=== PATIENT | female | born 1975 | race Two or more races ===

== ENCOUNTER 2023-07-30 16:33 | Emergency (ER) | payer MEDICAID ==
[~2023-07-30] VITALS: Ht 170.2 cm; Wt 86.5 kg
[~2023-07-30 16:33] MED LIST: NORPTMEDS CO
[2023-07-30 17:16] VITALS: BP 125/74; PULSE 109; RESP 18; O2SAT 96
[2023-07-30 18:23] LABS: Urine Bacteria FEW /hpf (None Seen); Urine Blood Negative /uL (Negative); Urine Clarity CLOUDY (Clear); Urine Color Yellow (Yellow); Urine Mucus FEW (None Seen); Urine Protein, UAD Negative (Negative); Urine Specific Gravity 1.021 (1.001-1.035); Urine Urobilinogen Normal (Negative); Urine WBC 16 /hpf (0 - 5); Urine pH 5.5 (5.0-8.0)
== END 2023-07-30 19:30 | disposition left against medical advice (07) ==
LOC: ER 16:33
DX: R10.2 Pelvic and perineal pain (principal); Z53.21 Procedure and treatment not carried out due to patient leaving prior to being seen by health care provider
CPT/HCPCS: 81001; 99281; J7030

== ENCOUNTER 2024-06-18 13:39 | Inpatient (IN) | payer MEDICAID ==
[~2024-06-18] VITALS: Ht 167.6 cm; Wt 70.0 kg
--- NOTE | 2024-06-18 14:07 | ECG ---
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
[2024-06-18 14:45] LABS: Basophils # (auto) 0 10 ^3/uL (0-0.2); Eosinophils # (auto) 0.1 10 ^3/uL (0-0.8); Mean Corpuscular Hgb Conc. 27.9 g/dL (32.0-36.0); Monocytes # (auto) 0.5 10 ^3/uL (0-1.3); Neutrophils # (auto) 7.9 10 ^3/uL (1.6-8.6); Nucleated Red Blood Cells % 0.1 %
[2024-06-18 14:48] LABS: Eosinophils % (auto) 1.2 % (0.0-7.0); Hematocrit 17.5 % (36.0-46.0); Lymphocytes # (auto) 1.2 10 ^3/uL (0.4-5.4); Lymphocytes % (auto) 12.8 % (10.0-50.0); Mean Corpuscular Hemoglobin 14.7 pg (28.0-32.0); Mean Corpuscular Volume 52.7 fL (80.0-100.0); Monocytes % (auto) 5.3 % (0.0-12.0); Neutrophils % (auto) 80.7 % (37.0-80.0); Platelet Count (auto) 592 10^3/uL (140-450); Red Blood Cells 3.32 10^6/uL (4.0-5.20); Red Cell Distribution Width 20.9 % (11.8-14.3); White Blood Cell 9.7 10^3/uL (4.4-10.8)
[2024-06-18 14:49] LABS: Hemoglobin 4.9 g/dL (12.2-16.2)
[2024-06-18 14:53] LABS: Alkaline Phosphatase 96 U/L (46-116); Calcium 8.8 mg/dL (8.7-10.4); Carbon Dioxide 23 mmol/L (20-31); Chloride 106 mmol/L (98-107)
[2024-06-18 14:54] LABS: Anion Gap 8 (5-15); Aspartate Aminotransferase 15 U/L (13-40); BUN/Creatinine Ratio 27.3 (10.0-20.0); Blood Urea Nitrogen 15 mg/dL (9-23); Potassium 4.2 mmol/L (3.5-5.1); Sodium 137 mmol/L (136-145); Total Protein 6.7 g/dL (5.7-8.2)
[2024-06-18 15:18] LABS: Alanine Aminotransferase 9 U/L (7-40); Bilirubin, Total 0.3 mg/dL (0.2-1.0); Glucose 107 mg/dL (74-106)
[2024-06-18 15:40] LABS: Anisocytosis Slight; Hypochromia Moderate; Ovalocytes FEW; Tear Drop Cells FEW
[2024-06-18 15:41] LABS: Platelet Estimate Increased
--- NOTE | 2024-06-18 15:53 | ED.PDOC ---
History of Present Illness HPI Comments 49-year-old female presents with a chief complaint of abnormal labs. Per patient, she has been feeling increasingly dizzy, SOB upon exertion, and some palpitations for the past x 3 months. Patient reports that she had blood work drawn yesterday from an order by her PCP and was called this morning stating to go to the ER due to having a HGB of 4.9, patient also has a 4.9 HGB here in the ER. Patient is pale in color. Chief Complaint: Abnormal LAB's Time Seen by MD: 14:55 Primary Care Provider: PENNY Reviewed Notes: Medications, Allergies Allergies: Coded Allergies: NO KNOWN ALLERGIES (Unverified , 03/27/13) Home Meds Reported Medications No Reported Medication (NO REPORTED MEDICATION) Ea, 0 CO UNK PATIENT HAS NO REPORTED MEDICATIONS 03/27/13 Information Source: Patient Mode of Arrival: Ambulatory Severity: Moderate Timing: Days Duration: Intermittent Prehospital treatment: None Past Medical History PAST MEDICAL HISTORY: Denies Surgical History: Denies all surgeries FAMILY SERVICE ASSISTANT History: No Pertinent FAMILY SERVICE ASSISTANT History Family History Family History: Reviewed,noncontributory to illness Social History Smoker: Non-Smoker Alcohol: Denies ETOH Use Drugs: Denies Drug Use Lives In: Home Constitutional: denies: chills, diaphoresis, fatigue, fever, malaise, sweats, weakness, others EENTM: denies: blurred vision, double vision, ear bleeding, ear discharge, ear drainage, ear pain, ear ringing, eye pain, eye redness, hearing loss, mouth pain, mouth swelling, nasal discharge, nose bleeding, nose congestion, nose pain, photophobia, tearing, throat pain, throat swelling, voice changes, others Respiratory: reports: SOB with excertion; denies: cough, hemoptysis, orthopnea, SOB at rest, shortness of breath, stridor, wheezing, others Cardiovascular: denies: chest pain, dizzy spells, diaphoresis, Dyspnea on exertion, edema, irregular heart beat, left arm pain, lightheadedness, palpitations, PND, syncope, others Gastrointestinal: denies: abdomen distended, abdominal pain, blood streaked bowels, constipated, diarrhea, dysphagia, difficulty swallowing, hematemesis, melena, nausea, poor appetite, poor fluid intake, rectal bleeding, rectal pain, vomiting, others Genitourinary: denies: abnormal vagina bleeding, burning, dyspareunia, dysuria, flank pain, frequency, hematuria, incontinence, pain, , vagina discharge, urgency, others Neurological: reports: dizziness; denies: fainting, headache, left sided numbness, left sided weakness, numbness, paresthesia, pre-existing deficit, right sided numbness, right sided weakness, seizure, speech problems, tingling, tremors, weakness, others Musculoskeletal: denies: back pain, gout, joint pain, joint swelling, muscle pain, muscle stiffness, neck pain, others Integumetry: denies: bruises, change in color, change in hair/nails, dryness, laceration, lesions, lumps, rash, wounds, others Allergic/Immunocompromised: denies: Difficulty Healing, Frequent Infections, Hives, Itching, others Hematologic/Lymphatic: reports: anemia; denies: blood clots, easy bleeding, easy bruising, swollen glands, others Endocrine: denies: excessive hunger, excessive sweating, excessive thirst, excessive urination, flushing, intolerance to cold, intolerance to heat, unexplained weight gain, unexplained weight loss, others Psychiatric: denies: anxiety, bipolar disorder, depression, hopeless, panic disorder, schizophrenia, sleepless, suicidal, others All Other Systems: Reviewed and Negative Physical Exam General Appearance: Mild Distress, Thin, Other (PALE IN COLOR) HEENT: Normal ENT Inspection, Pharynx Normal, TMs Normal Neck: Full Range of Motion, Non-Tender, Normal, Normal Inspection Respiratory: Chest Non-Tender, Lungs Clear, No Accessory Muscle Use, No Respiratory Distress, Normal Breath Sounds Cardiovascular: No Edema, No JVD, No Murmur, No Gallop, Normal Peripheral Pulses, Regular Rate/Rhythm Breast Exam: Deferred Gastrointestinal: No Organomegaly, Non Tender, No Pulsatile Mass, Normal Bowel Sounds, Soft Genitalia: Deferred Pelvic: Deferred Rectal: Deferred Extremities: No calf tenderness, Normal capillary refill, Normal inspection, Normal range of motion, Non-tender, No pedal edema Musculoskeletal : Apperance: Normal Neurologic: Alert, instructional material director II-XII nml as Tested, No Motor Deficits, Normal Affect, Normal Mood, No Sensory Deficits Cerebellar Function: Normal Reflexes: Normal Skin: Dry, Normal Color, Warm Lymphatic: No Adenopathy Was a procedure done? Was a procedure done?: No EKG EKG : Pulse Rate (adult): 112 [place]: Normal Cardiac Rhythm: ST Block: None Hypertrophy: None ST: Normal Comments Nonspecific ST changes Differential Dx Considerations may include: Gastrointestinal bleed, cancer, electrolyte abnormality, unspecified anemia, b leeding from other site X-Ray, Labs, Meds, VS Vital Signs Date Time Temp Pulse Resp B/P (MAP) Pulse Ox O2 Delivery O2 Flow Rate FiO2 06/18/24 17:15 114 13 94 Room Air* 0 21 06/18/24 17:15 114 13 116/67 (83) 94 06/18/24 15:53 112 06/18/24 13:56 124 06/18/24 13:53 112 06/18/24 13:50 98.2 124 18 125/53 (77) 100 Lab Test 06/18/24 14:12 Range/Units White Blood Count 9.7 4.4-10.8 10^3/uL Red Blood Count 3.32 L 4.0-5.20 10^6/uL Hemoglobin 4.9 *L 12.2-16.2 g/dL Hematocrit 17.5 L 36.0-46.0 % Mean Corpuscular Volume 52.7 L 80.0-100.0 fL Mean Corpuscular Hemoglobin 14.7 L 28.0-32.0 pg Mean Corpuscular Hemoglobin Concent 27.9 L 32.0-36.0 g/dL Red Cell Distribution Width 20.9 H 11.8-14.3 % Platelet Count 592 H 140-450 10^3/uL Mean Platelet Volume 8.3 6.9-10.8 fL Neutrophils (%) (Auto) 80.7 H 37.0-80.0 % Lymphocytes (%) (Auto) 12.8 10.0-50.0 % Monocytes (%) (Auto) 5.3 0.0-12.0 % Eosinophils (%) (Auto) 1.2 0.0-7.0 % Basophils (%) (Auto) 0.0 0.0-2.0 % Neutrophils # (Auto) 7.9 1.6-8.6 10 ^3/uL Lymphocytes # (Auto) 1.2 0.4-5.4 10 ^3/uL Monocytes # (Auto) 0.5 0-1.3 10 ^3/uL Eosinophils # (Auto) 0.1 0-0.8 10 ^3/uL Basophils # (Auto) 0 0-0.2 10 ^3/uL Nucleated Red Blood Cells 0.1 % Platelet Estimate Increased Hypochromasia (manual) Moderate Anisocytosis (manual) Slight Microcytosis Moderate Tear Drop Cells Few Ovalocytes Few Schistocytes Few Sodium Level 137 136-145 mmol/L Potassium Level 4.2 3.5-5.1 mmol/L Chloride Level 106 98-107 mmol/L Carbon Dioxide Level 23 20-31 mmol/L Anion Gap 8 5-15 Blood Urea Nitrogen 15 9-23 mg/dL Creatinine 0.55 0.550-1.02 mg/dL Glomerular Filtration Rate Calc 111 >90 mL/min BUN/Creatinine Ratio 27.3 H 10.0-20.0 Serum Glucose 107 H 74-106 mg/dL Calcium Level 8.8 8.7-10.4 mg/dL Total Bilirubin 0.3 0.2-1.0 mg/dL Aspartate Amino Transferase (AST) 15 13-40 U/L Alanine Aminotransferase (ALT) 9 7-40 U/L Alkaline Phosphatase 96 46-116 U/L Total Protein 6.7 5.7-8.2 g/dL Albumin 4.0 3.2-4.8 g/dL 49-year-old female presents here with hemoglobin of 4.9. She does state that she has had onto unintentional weight loss of proximally 40 lb in the last 6 months. I am very concerned about possible carcinoma. Blood work has been done which does demonstrate hemoglobin of 4.9 and also increased platelets of 592. At this time patient has been transfused 1 unit of PRBC. Patient has been admitted to the hospitalist team. Time of 1ST Reevaluation: 15:25 Reevaluation 1ST: Unchanged Patient Education/Counseling: Diagnosis, Treatment, Prognosis Family Education/Counseling: Diagnosis, Treatment, Prognosis Departure 1 Departure Time of Disposition: 16:00 Impression: Primary Impression: Severe anemia Additional Impressions: Thrombocytosis Unintentional weight loss Disposition: ADMITTED INPATIENT Admit to: [facility] Condition: Critical Critical Care Note Critical Care Time?: Yes (45 min-critical care time only) Critical care comment: Patient was found to be pale and nursing staff called me immediately to bedside for possible immediate deterioration of the patient. Patient was immediately evaluated by myself. Time was spent evaluating the patient, ordering labs, reviewing labs, transfusing the patient, discussing care with other team members., speaking to family regarding results. Stability Stability form required: No Heart Score Heart Score: Heart Score Response (Comments) Value History N/A 0 EKG N/A 0 Age N/A 0 Risk Factors N/A 0 Troponin N/A 0 Total 0 I personally scribed for CONNOR MARTINEZ MD ([email or web address]) on 06/18/24 at 15:53. Electronically submitted by Emery Roberson ([email or web address]). CONNOR MARTINEZ MD Jun 18, 2024 15:53
[2024-06-18 17:15] VITALS: PULSE 114; RESP 13; O2SAT 94
[2024-06-18] MEDS ORDERED: ONDANSETRON HCL 4 MG/2 ML VIAL IV PRN (19:00)
[2024-06-18] MEDS ORDERED: HYDROcodone-ACET 5/325MG TAB PO PRN (19:00)
[2024-06-18] MEDS ORDERED: ACETAMINOPHEN 325 MG TAB PO PRN (19:00)
[2024-06-18] MEDS: PANTOPRAZOLE 40 MG/10 ML VIAL INJ IV ONE (19:24)
[2024-06-18] MEDS: SODIUM CHLORIDE 0.9% 1,000 ML IV SCH (19:24)
[2024-06-18 19:53] VITALS: BP 110/61; PULSE 113; RESP 12; TEMP 99.5
[2024-06-18 20:00] VITALS: PULSE 113; RESP 12; O2SAT 98
[2024-06-18 20:15] VITALS: BP 109/57; PULSE 111; RESP 19; TEMP 99.5
[2024-06-18] MEDS ORDERED: IOHEXOL 300 MG/ML 100ML BOTTLE IJ ONE (20:55)
--- NOTE | 2024-06-18 21:55 | DVHHP2 ---
History of Present Illness Reason for Visit: Severe anemia History of Present Illness The patient is a 49-year-old female who denies past medical history presented to [facility] ED for evaluation of abnormal labs. Patient reports feeling weakness, increasing dizziness, associated shortness of breath, getting worse today that prompted this visit. Patient was seen and evaluated in the ED, laboratory data shows WBC 9.7, hemoglobin 4.9, hematocrit 17.5, platelets 592, sodium 137, potassium 4.2, BUN 15, creatinine 0.55, GFR 111, glucose 107. Patient will receive 2 units of PRBC, please see medication orders section in the computer. On my assessment, patient denied chest pain, no headache, no diz ziness at this moment, no diaphoresis, no nausea, no vomiting, no fever, no chills. Patient was admitted for further evaluation and medical management. Past Medical History Denies past medical history Past Surgical History Denies all surgeries Family History Reviewed, noncontributory to the management of this case. Past Social History The patient lives at home, denies smoking, alcohol or illicit drugs abuse. Review of Systems Constitutional: Yes: Weakness; No: Fever, Chills, Sweats, Malaise, Other Eyes: No: Pain, Vision change, Conjunctivae inflammation, Eyelid inflammation, Other, Redness ENT: No: Ear pain, Ear discharge, Nose pain, Nose discharge, Nose congestion, Mouth pain, Mouth swelling, Throat pain, Throat swelling, Other Respiratory: Shortness of breath; No: Cough, Dry, SOB with excertion, Wheezing, Hemoptysis, Pleuritic Pain, Sputum, Wheezing, Other Cardiovascular: No: Chest Pain, Palpitations, Orthopnea, Paroxysmal Noc. Dyspnea, Edema, Lt Headedness, Other Gastrointestinal: No: Nausea, Vomiting, Abdominal Pain, Diarrhea, Constipation, Melena, Hematochezia, Other Genitourinary: No Dysuria, No Frequency, No Incontinence, No Hematuria, No Retention, No Other Musculoskeletal: No: other, neck pain, shoulder pain, arm pain, back pain, hand pain, leg pain, foot pain Skin: No: Rash, Lesions, Jaundice, Bruising, Other Neurological: No: Weakness, Numbness, Incoordination, Change in speech, Confusion, Seizures, Other Allergies: Coded Allergies: NO KNOWN ALLERGIES (Unverified , 11/2/13) Medications Current Medications Medications Dose Ordered Sig/Chris Route Start Time Stop Time Status Last Admin Dose Admin Pantoprazole Sodium 40 mg DAILY IV 06/19/24 10:00 Sodium Chloride 1,000 ml @ 60 mls/hr [id number] IV 06/18/24 19:00 06/18/24 19:24 60 MLS/HR Acetaminophen/ Hydrocodone Bitart 1 tab Q4HP PRN PO 06/18/24 19:00 Ondansetron HCl 4 mg Q4HP PRN IV 06/18/24 19:00 Docusate Sodium 100 mg BIDPRN PRN PO 06/18/24 19:00 Enoxaparin Sodium 40 mg DAILY SC 06/19/24 10:00 Acetaminophen 650 mg Q6HP PRN PO 06/18/24 19:00 Exam Vital Signs Vital Signs Date Time Temp Pulse Resp B/P (MAP) Pulse Ox O2 Delivery O2 Flow Rate FiO2 06/18/24 20:15 99.5 111 19 109/57 99.5 06/18/24 18:00 97 06/18/24 17:15 Room Air* 0 21 General Appearance: Alert, Oriented X3, Cooperative, No acute distress HEENT: Atraumatic, PERRLA, EOMI, Mucous membr. moist/pink Respiratory: Clear to auscultation, Normal air movement Cardiovascular: Regular rate, Normal S1, Normal S2, No murmurs Abdominal: Normal bowel sounds, Soft, No tenderness, No hepatospenomegaly, No masses Extremities: No clubbing, No cyanosis, No edema, Normal pulses, No tenderness/swelling Skin: No rashes, No breakdown, No significant lesion Neuro: Normal speech, Normal tone, Sensation intact, Cranial nerves 3-12 NL, Reflexes 2+, Other (Generalized weakness) Psych/Mental Status: Mental status NL, Mood NL Labs/Xrays Labs Test 06/18/24 19:02 06/18/24 14:12 Range/Units Urine Test Negative Negative White Blood Count 9.7 4.4-10.8 10^3/uL Red Blood Count 3.32 L 4.0-5.20 10^6/uL Hemoglobin 4.9 *L 12.2-16.2 g/dL Hematocrit 17.5 L 36.0-46.0 % Mean Corpuscular Volume 52.7 L 80.0-100.0 fL Mean Corpuscular Hemoglobin 14.7 L 28.0-32.0 pg Mean Corpuscular Hemoglobin Concent 27.9 L 32.0-36.0 g/dL Red Cell Distribution Width 20.9 H 11.8-14.3 % Platelet Count 592 H 140-450 10^3/uL Mean Platelet Volume 8.3 6.9-10.8 fL Neutrophils (%) (Auto) 80.7 H 37.0-80.0 % Lymphocytes (%) (Auto) 12.8 10.0-50.0 % Monocytes (%) (Auto) 5.3 0.0-12.0 % Eosinophils (%) (Auto) 1.2 0.0-7.0 % Basophils (%) (Auto) 0.0 0.0-2.0 % Neutrophils # (Auto) 7.9 1.6-8.6 10 ^3/uL Lymphocytes # (Auto) 1.2 0.4-5.4 10 ^3/uL Monocytes # (Auto) 0.5 0-1.3 10 ^3/uL Eosinophils # (Auto) 0.1 0-0.8 10 ^3/uL Basophils # (Auto) 0 0-0.2 10 ^3/uL Nucleated Red Blood Cells 0.1 % Platelet Estimate Increased Hypochromasia (manual) Moderate Anisocytosis (manual) Slight Microcytosis Moderate Tear Drop Cells Few Ovalocytes Few Schistocytes Few Sodium Level 137 136-145 mmol/L Potassium Level 4.2 3.5-5.1 mmol/L Chloride Level 106 98-107 mmol/L Carbon Dioxide Level 23 20-31 mmol/L Anion Gap 8 5-15 Blood Urea Nitrogen 15 9-23 mg/dL Creatinine 0.55 0.550-1.02 mg/dL Glomerular Filtration Rate Calc 111 >90 mL/min BUN/Creatinine Ratio 27.3 H 10.0-20.0 Serum Glucose 107 H 74-106 mg/dL Calcium Level 8.8 8.7-10.4 mg/dL Total Bilirubin 0.3 0.2-1.0 mg/dL Aspartate Amino Transferase (AST) 15 13-40 U/L Alanine Aminotransferase (ALT) 9 7-40 U/L Alkaline Phosphatase 96 46-116 U/L Total Protein 6.7 5.7-8.2 g/dL Albumin 4.0 3.2-4.8 g/dL Assessment/Plan Assessment/Plan Severe anemia Thrombocytosis Unintentional weight loss Generalized weakness Plan 1. Admit to telemetry unit 2. Breathing treatment 3. Pain control management 4. Management of fluids and electrolytes 5. Consultation for hospitalist 6. Diagnostic tests chest x-ray 7. DVT prophylaxis-on SCDs 8. Repeat labs CBC, CMP in a.m. 9. Continue with current medical management 10. Treatment plan discussed with patient and RN. Patient verbalized understanding. Plan discussed with: Patient, Other (RN) My Orders Orders - COOPER TOMPKINS DNP Procedure Category Date Status Time Pantoprazole PHA 06/19/24 In Process (Protonix) 10:00 Allergies BIJAN 06/18/24 In Process 18:54 Code Status CODE 06/18/24 Transmitted 18:54 Sodium Chloride 0.9% PHA 06/18/24 In Process 19:00 Oxygen Per Hour RT 06/18/24 Transmitted 18:54 Hydrocodone-Acet PHA 06/18/24 In Process 5/325mg Tab ([place] 19:00 Ondansetron Hcl PHA 06/18/24 In Process (Zofran) 19:00 Docusate Sodium PHA 06/18/24 In Process Capsule (Colace 19:00 Enoxaparin Sodium PHA 06/19/24 In Process (Lovenox) 10:00 Complete Blood Count LAB 06/19/24 Verified 04:00 Comprehensive LAB 06/19/24 Verified Metabolic Panel 04:00 Cardiac DIET 06/19/24 Transmitted Diet-2gna,Lofat,Lochol Breakfast Condition: Serious BIJAN 06/18/24 In Process 18:54 Acetaminophen Tablet PHA 06/18/24 In Process (Tylenol Tablet) 19:00 Bedrest With Bathroom BIJAN 06/18/24 In Process Privileg 18:54 Sequential BIJAN 06/18/24 In Process Compression Device Complete Blood Count LAB 06/20/24 Verified 05:00 Packedcells -Active BBK 06/18/24 Logged Bleeding 21:25 Problem List: (1) Severe anemia (2) Thrombocytosis (3) Unintentional weight loss (4) Generalized weakness Date of Service: Jun 18, 2024 Billing Provider: COOPER TOMPKINS DNP Common Visit Codes: [id number] INP/OBS CARE (HIGH) COOPER TOMPKINS DNP Jun 18, 2024 21:55
[2024-06-18] MEDS ORDERED: NITROGLYCERIN 0.4 MG SL TAB SL PRN (22:00)
[2024-06-18] MEDS ORDERED: MORPHINE SULFATE INJ 2 MG/ml SYRG IV PRN (22:00)
[2024-06-19] VITALS (12 sets, daily range): BP systolic 106–121; BP diastolic 61–81; PULSE 94–102; RESP 14–20; TEMP 98–99.7; O2SAT 94–99
[2024-06-19] MEDS ORDERED: PANT40TA57 PO (00:32)
[2024-06-19] MEDS ORDERED: CETI-120 PO (00:32)
[2024-06-19] MEDS ORDERED: BACL20TA PO (00:32)
--- NOTE | 2024-06-19 00:36 | DVH ---
Exam: CT CT CHEST/AB/PL W CON- IV ONLY History: ro carcinoma Comparison Study: None available at time of dictation. Technique: Multidetector spiral CT of the abdomen and pelvis was performed from lung bases to pubic s ymphysis. Intravenous contrast was administered during this examination. Portal venous imaging was obtained. Axial, coronal and sagittal multiplanar reformats were performed by the technologist on a separate workstation. Radiation Dose : 1. Abdomen/Pelvis: CTDIvol 8 mGy, DLP 620 mGy*cm. Findings: Lung Bases: No acute or significant lung base finding. Normal heart size. No pleural or pericardial effusion. Liver: The liver is normal in size. No focal lesions. Normal hepatic vascular enhancement. Gallbladder and Biliary Tree: Nondistended gallbladder demonstrating subcentimeter lesions. Spleen: Unremarkable Pancreas: The pancreas is normal in appearance without focal lesions or abnormal enhancement. Adrenal Glands: Unremarkable Kidneys: Kidneys demonstrate normal symmetric enhancement without focal lesions, calculi or hydroneph rosis. Bladder: Unremarkable Bowel: The stomach is grossly normal in appearance. Irregular wall thickening of the transverse colon with adjacent inflammatory changes. Postsurgical changes of the small bowel in the right lower abdom en. Normal appendix is visualized in the right lower quadrant without findings of appendicitis. Ascites: Absent Lymphadenopathy: No mesenteric, retroperitoneal or periportal lymphadenopathy. Abdominal Wall and Mesentery: Unremarkable. Vasculature: The visualized abdominal aorta is normal in size and caliber. Abdominal and pelvic vess els demonstrate normal enhancement. Pelvic Organs: Cystic lesion in the left adnexa. Musculoskeletal: No aggressive focal bony lesions, acute fractures or dislocation. Postsurgical browne es of the lower thoracic and lumbar spine. IMPRESSION: Irregular wall thickening of the transverse colon with adjacent inflammatory changes concerning for a cute infectious/ inflammatory colitis with underlying malignancy not excluded. Nondistended gallbladder demonstrating subcentimeter internal lesion which may represent a stone othe r etiologies not excluded. Consider further evaluation with ultrasound. Hypodense lesion in the left adnexa which can be further evaluated ultrasound clinically indicated.
[2024-06-19 06:06] LABS: Basophils # (auto) 0 10 ^3/uL (0-0.2); Basophils % (auto) 0.2 % (0.0-2.0); Eosinophils # (auto) 0.2 10 ^3/uL (0-0.8); Eosinophils % (auto) 2.7 % (0.0-7.0); Hematocrit 22.4 % (36.0-46.0); Lymphocytes # (auto) 1.2 10 ^3/uL (0.4-5.4); Lymphocytes % (auto) 15.2 % (10.0-50.0); Mean Corpuscular Hemoglobin 18.9 pg (28.0-32.0); Mean Corpuscular Hgb Conc. 31.1 g/dL (32.0-36.0); Mean Corpuscular Volume 60.6 fL (80.0-100.0); Monocytes # (auto) 0.6 10 ^3/uL (0-1.3); Monocytes % (auto) 8.3 % (0.0-12.0); Neutrophils # (auto) 5.7 10 ^3/uL (1.6-8.6); Neutrophils % (auto) 73.6 % (37.0-80.0); Nucleated Red Blood Cells % 0.1 %; Platelet Count (auto) 430 10^3/uL (140-450); Red Blood Cells 3.69 10^6/uL (4.0-5.20); Red Cell Distribution Width 31.3 % (11.8-14.3); White Blood Cell 7.7 10^3/uL (4.4-10.8)
[2024-06-19 06:23] LABS: Albumin 3.4 g/dL (3.2-4.8); Alkaline Phosphatase 80 U/L (46-116); Anion Gap 9 (5-15); BUN/Creatinine Ratio 23.1 (10.0-20.0); Bilirubin, Total 0.4 mg/dL (0.2-1.0); Carbon Dioxide 21 mmol/L (20-31); Glucose 104 mg/dL (74-106); Potassium 3.6 mmol/L (3.5-5.1); Sodium 139 mmol/L (136-145); Total Protein 5.8 g/dL (5.7-8.2)
[2024-06-19 06:24] LABS: Blood Urea Nitrogen 9 mg/dL (9-23); Chloride 109 mmol/L (98-107)
[2024-06-19 06:25] LABS: Alanine Aminotransferase < 9 U/L (7-40); Aspartate Aminotransferase 11 U/L (13-40); Calcium 8.3 mg/dL (8.7-10.4)
[2024-06-19 07:26] LABS: Hypochromia Moderate
[2024-06-19 07:27] LABS: Anisocytosis Moderate; Ovalocytes FEW; Platelet Estimate Adequate
[2024-06-19] MEDS: PANTOPRAZOLE 40 MG/10 ML VIAL INJ IV SCH (11:09)
[2024-06-19] MEDS: ENOXAPARIN SOD 40 MG/0.4 ML SYRINGE SC SCH (11:10)
--- NOTE | 2024-06-19 22:35 | DVHPN2 ---
Subjective The patient is seen and examined at bedside. No complaint today. Reviewed: Care Plan, H&P, Labs, Medications, Previous Orders, Radiology Changes from previous H/P or p: No Changes Eyes: No Pain, No Vision change, No Conjunctivae inflammation, No Eyelid inflammation, No Other, No Redness ENT: No Ear pain, No Ear discharge, No Nose pain, No Nose discharge, No Nose congestion, No Mouth pain, No Mouth swelling, No Throat pain, No Throat swelling, No Other Cardiovascular: No Chest Pain, No Palpitations, No Orthopnea, No Paroxysmal Noc. Dyspnea, No Edema, No Lt Headedness, No Other Respiratory: No Cough, No Dry; Shortness of breath; No SOB with excertion, No Wheezing, No Hemoptysis, No Pleuritic Pain, No Sputum, No Other Gastrointestinal: No Nausea, No Vomiting, No Abdominal Pain, No Diarrhea, No Constipation, No Melena, No Hematochezia, No Other Genitourinary: No Dysuria, No Frequency, No Incontinence, No Hematuria, No Retention, No Other Musculoskeletal: No other, No neck pain, No shoulder pain, No arm pain, No back pain, No hand pain, No leg pain, No foot pain Skin: No Rash, No Lesions, No Jaundice, No Bruising, No Other Objective Vitals Vital Signs Date Time Temp Pulse Resp B/P (MAP) Pulse Ox O2 Delivery O2 Flow Rate FiO2 06/19/24 21:00 99.3 100 18 121/81 (94) 98 99.3 06/19/24 20:00 Room Air* 0 21 Intake/Output Intake and Output 06/19/24 07:00 Intake Total 600 ml Output Total 350 ml Balance 250 ml Intake Oral 0 ml Blood Product 600 ml Output Urine Total 350 ml General Appearance: Alert, Oriented X3, Cooperative, No acute distress HEENT: Atraumatic, PERRLA, EOMI, Mucous membr. moist/pink Neck: Supple Lungs: Clear to auscultation, Normal air movement Cardiovascular: Regular rate, Normal S1, Normal S2, No murmurs, Gallops, Rubs Abdomen: Normal bowel sounds, Soft, No tenderness Neuro: Cranial nerves 3-12 NL Psych/Mental Status: Mental status NL Medications Current Medications Medications Dose Ordered Sig/Chris Route Start Time Stop Time Status Last Admin Dose Admin Pantoprazole Sodium 40 mg DAILY IV 06/19/24 10:00 06/19/24 11:09 40 MG Sodium Chloride 1,000 ml @ 60 mls/hr [id number] IV 06/18/24 19:00 06/19/24 17:13 60 MLS/HR Acetaminophen/ Hydrocodone Bitart 1 tab Q4HP PRN PO 06/18/24 19:00 Ondansetron HCl 4 mg Q4HP PRN IV 06/18/24 19:00 Docusate Sodium 100 mg BIDPRN PRN PO 06/18/24 19:00 Enoxaparin Sodium 40 mg DAILY SC 06/19/24 10:00 06/19/24 11:10 40 MG Acetaminophen 650 mg Q6HP PRN PO 06/18/24 19:00 Nitroglycerin 0.4 mg Q5MINP PRN SL 06/18/24 22:00 Morphine Sulfate 2 mg Q30M PRN IV 06/18/24 22:00 Laboratory Results Laboratory Tests 06/19/24 05:29 Chemistry Test 06/19/24 05:29 Albumin 3.4 g/dL (3.2-4.8) Calcium Level 8.3 mg/dL (8.7-10.4) L Total Protein 5.8 g/dL (5.7-8.2) LFT Test 06/19/24 05:29 Alanine Aminotransferase (ALT) < 9 U/L (7-40) Alkaline Phosphatase 80 U/L (46-116) Aspartate Amino Transferase (AST) 11 U/L (13-40) L Total Bilirubin 0.4 mg/dL (0.2-1.0) Urinalysis Test 06/18/24 19:02 Urine Test Negative (Negative) Labs and/or images reviewed: Labs reviewed by me Assessment/Plan Assessment/Plan Severe anemia Thrombocytosis Unintentional weight loss Generalized weakness Continuing current management. We will transfuse one packed red blood cell today. We will monitor anemia in thrombocytosis. Plan discussed with: Patient Date of Service: Jun 19, 2024 Billing Provider: ISIS KELLEY MD Common Visit Codes: [id number] INP/OBS CARE(HIGH) ISIS KELLEY MD Jun 19, 2024 22:35
[2024-06-20] VITALS (12 sets, daily range): BP systolic 105–123; BP diastolic 49–76; PULSE 92–116; RESP 16–20; TEMP 98.1–99.4; O2SAT 94–98
[2024-06-20 06:50] LABS: Basophils # (auto) 0 10 ^3/uL (0-0.2); Eosinophils # (auto) 0.2 10 ^3/uL (0-0.8); Eosinophils % (auto) 2.6 % (0.0-7.0); Lymphocytes # (auto) 1.2 10 ^3/uL (0.4-5.4); Lymphocytes % (auto) 14.5 % (10.0-50.0); Monocytes # (auto) 0.6 10 ^3/uL (0-1.3); Nucleated Red Blood Cells % 0.1 %
[2024-06-20 06:53] LABS: Basophils % (auto) 0.4 % (0.0-2.0); Hematocrit 22.1 % (36.0-46.0); Mean Corpuscular Hemoglobin 18.6 pg (28.0-32.0); Mean Corpuscular Hgb Conc. 30.6 g/dL (32.0-36.0); Mean Corpuscular Volume 60.9 fL (80.0-100.0); Monocytes % (auto) 7.7 % (0.0-12.0); Neutrophils % (auto) 74.8 % (37.0-80.0); Platelet Count (auto) 440 10^3/uL (140-450); Red Blood Cells 3.63 10^6/uL (4.0-5.20)
[2024-06-20 07:10] LABS: Hemoglobin 6.8 g/dL (12.2-16.2); Red Cell Distribution Width 31.1 % (11.8-14.3)
[2024-06-20 07:36] LABS: Anisocytosis Moderate
[2024-06-20 07:37] LABS: Hypochromia Moderate; Ovalocytes FEW; Platelet Estimate Adequate
--- NOTE | 2024-06-20 18:00 | DVHPN2 ---
Subjective The patient seen and examined at bedside. Feel dizzy today. Complain of blood in stool. Reviewed: Care Plan, H&P, Labs, Medications, Previous Orders, Radiology Changes from previous H/P or p: No Changes Eyes: No Pain, No Vision change, No Conjunctivae inflammation, No Eyelid inflammation, No Other, No Redness ENT: No Ear pain, No Ear discharge, No Nose pain, No Nose discharge, No Nose congestion, No Mouth pain, No Mouth swelling, No Throat pain, No Throat swelling, No Other Cardiovascular: No Chest Pain, No Palpitations, No Orthopnea, No Paroxysmal Noc. Dyspnea, No Edema, No Lt Headedness, No Other Respiratory: No Cough, No Dry; Shortness of breath; No SOB with excertion, No Wheezing, No Hemoptysis, No Pleuritic Pain, No Sputum, No Other Gastrointestinal: No Nausea, No Vomiting, No Abdominal Pain, No Diarrhea, No Constipation, No Melena, No Hematochezia, No Other Genitourinary: No Dysuria, No Frequency, No Incontinence, No Hematuria, No Retention, No Other Musculoskeletal: No other, No neck pain, No shoulder pain, No arm pain, No back pain, No hand pain, No leg pain, No foot pain Skin: No Rash, No Lesions, No Jaundice, No Bruising, No Other Objective Vitals Vital Signs Date Time Temp Pulse Resp B/P (MAP) Pulse Ox O2 Delivery O2 Flow Rate FiO2 06/20/24 13:00 98.9 97 20 105/49 (67) 97 98.9 06/20/24 08:00 Room Air* 0 21 Intake/Output Intake and Output 06/20/24 07:00 Intake Total 2300 ml Output Total 2100 ml Balance 200 ml Intake Oral 940 ml IV Total 1060 ml Blood Product 300 ml Output Urine Total 2100 ml General Appearance: Alert, Oriented X3, Cooperative, No acute distress HEENT: Atraumatic, PERRLA, EOMI, Mucous membr. moist/pink Neck: Supple Lungs: Clear to auscultation, Normal air movement Cardiovascular: Regular rate, Normal S1, Normal S2, No murmurs, Gallops, Rubs Abdomen: Normal bowel sounds, Soft, No tenderness Neuro: Cranial nerves 3-12 NL Psych/Mental Status: Mental status NL Medications Current Medications Medications Dose Ordered Sig/Chris Route Start Time Stop Time Status Last Admin Dose Admin Pantoprazole Sodium 40 mg DAILY IV 06/19/24 10:00 06/19/24 11:09 40 MG Sodium Chloride 1,000 ml @ 60 mls/hr [id number] IV 06/18/24 19:00 06/20/24 12:33 60 MLS/HR Acetaminophen/ Hydrocodone Bitart 1 tab Q4HP PRN PO 06/18/24 19:00 Ondansetron HCl 4 mg Q4HP PRN IV 06/18/24 19:00 Docusate Sodium 100 mg BIDPRN PRN PO 06/18/24 19:00 Enoxaparin Sodium 40 mg DAILY SC 06/19/24 10:00 06/19/24 11:10 40 MG Acetaminophen 650 mg Q6HP PRN PO 06/18/24 19:00 Nitroglycerin 0.4 mg Q5MINP PRN SL 06/18/24 22:00 Morphine Sulfate 2 mg Q30M PRN IV 06/18/24 22:00 Laboratory Results Laboratory Tests 06/19/24 05:29 06/20/24 05:22 Urinalysis Test 06/18/24 19:02 Urine Test Negative (Negative) Labs and/or images reviewed: Labs reviewed by me Assessment/Plan Assessment/Plan Severe anemia Thrombocytosis Unintentional weight loss Generalized weakness Continuing current management. We will type and cross and transfuse one packed red blood cell. GI specialist consulted. Landscape Supervisor consulted. Plan discussed with: Patient My Orders Orders - ISIS KELLEY MD Procedure Category Date Status Time * Gi Dvh Chain Builder Loom Control CONS 06/20/24 Transmitted 13:40 Date of Service: Jun 20, 2024 Billing Provider: ISIS KELLEY MD Common Visit Codes: [id number] INP/OBS CARE(HIGH) ISIS KELLEY MD Jun 20, 2024 18:00
[2024-06-21] VITALS (9 sets, daily range): BP systolic 102–120; BP diastolic 58–74; PULSE 83–109; RESP 17–19; TEMP 98.5–99.1; O2SAT 95–97
[2024-06-21] MEDS: DOCUSATE SOD 100 MG CAP PO PRN (08:57)
[2024-06-21 09:56] LABS: Basophils # (auto) 0 10 ^3/uL (0-0.2); Basophils % (auto) 0.3 % (0.0-2.0); Eosinophils # (auto) 0.2 10 ^3/uL (0-0.8); Lymphocytes # (auto) 0.8 10 ^3/uL (0.4-5.4); Mean Corpuscular Volume 63.9 fL (80.0-100.0); Monocytes # (auto) 0.4 10 ^3/uL (0-1.3)
[2024-06-21 09:59] LABS: Eosinophils % (auto) 2.5 % (0.0-7.0); Hematocrit 27.8 % (36.0-46.0); Hemoglobin 8.4 g/dL (12.2-16.2); Lymphocytes % (auto) 11.1 % (10.0-50.0); Mean Corpuscular Hemoglobin 19.4 pg (28.0-32.0); Mean Corpuscular Hgb Conc. 30.3 g/dL (32.0-36.0); Monocytes % (auto) 5.6 % (0.0-12.0); Neutrophils % (auto) 80.5 % (37.0-80.0); Nucleated Red Blood Cells % 0.1 %; Platelet Count (auto) 458 10^3/uL (140-450); Red Blood Cells 4.35 10^6/uL (4.0-5.20); Red Cell Distribution Width 32.9 % (11.8-14.3); White Blood Cell 7.5 10^3/uL (4.4-10.8)
[2024-06-21 10:16] LABS: Anion Gap 8 (5-15); Carbon Dioxide 23 mmol/L (20-31); Potassium 3.9 mmol/L (3.5-5.1); Sodium 140 mmol/L (136-145)
[2024-06-21 10:17] LABS: Calcium 8.9 mg/dL (8.7-10.4)
[2024-06-21 10:23] LABS: Blood Urea Nitrogen 8 mg/dL (9-23); Chloride 109 mmol/L (98-107); Glucose 164 mg/dL (74-106)
--- NOTE | 2024-06-21 11:34 | DVHPN2 ---
Subjective The patient seen and examined at bedside. Feel dizzy today. Reviewed: Care Plan, H&P, Labs, Medications, Previous Orders, Radiology Changes from previous H/P or p: No Changes Eyes: No Pain, No Vision change, No Conjunctivae inflammation, No Eyelid inflammation, No Other, No Redness ENT: No Ear pain, No Ear discharge, No Nose pain, No Nose discharge, No Nose congestion, No Mouth pain, No Mouth swelling, No Throat pain, No Throat swelling, No Other Cardiovascular: No Chest Pain, No Palpitations, No Orthopnea, No Paroxysmal Noc. Dyspnea, No Edema, No Lt Headedness, No Other Respiratory: No Cough, No Dry; Shortness of breath; No SOB with excertion, No Wheezing, No Hemoptysis, No Pleuritic Pain, No Sputum, No Other Gastrointestinal: No Nausea, No Vomiting, No Abdominal Pain, No Diarrhea, No Constipation, No Melena, No Hematochezia, No Other Genitourinary: No Dysuria, No Frequency, No Incontinence, No Hematuria, No Retention, No Other Musculoskeletal: No other, No neck pain, No shoulder pain, No arm pain, No back pain, No hand pain, No leg pain, No foot pain Skin: No Rash, No Lesions, No Jaundice, No Bruising, No Other Objective Vitals Vital Signs Date Time Temp Pulse Resp B/P (MAP) Pulse Ox O2 Delivery O2 Flow Rate FiO2 06/21/24 08:55 98.5 94 18 117/70 (86) 95 98.5 06/20/24 20:00 Room Air* 0 21 Intake/Output Intake and Output 06/21/24 07:00 Intake Total 2170 ml Output Total 2275 ml Balance -105 ml IV Total 1870 ml Blood Product 300 ml Output Urine Total 2275 ml # Bowel Movements 1 General Appearance: Alert, Oriented X3, Cooperative, No acute distress HEENT: Atraumatic, PERRLA, EOMI, Mucous membr. moist/pink Neck: Supple Lungs: Clear to auscultation, Normal air movement Cardiovascular: Regular rate, Normal S1, Normal S2, No murmurs, Gallops, Rubs Abdomen: Normal bowel sounds, Soft, No tenderness Neuro: Cranial nerves 3-12 NL Psych/Mental Status: Mental status NL Medications Current Medications Medications Dose Ordered Sig/Chris Route Start Time Stop Time Status Last Admin Dose Admin Pantoprazole Sodium 40 mg DAILY IV 1/25/25 10:00 06/21/24 08:57 40 MG Sodium Chloride 1,000 ml @ 60 mls/hr [id number] IV 06/18/24 19:00 06/21/24 05:53 60 MLS/HR Acetaminophen/ Hydrocodone Bitart 1 tab Q4HP PRN PO 06/18/24 19:00 Ondansetron HCl 4 mg Q4HP PRN IV 06/18/24 19:00 Docusate Sodium 100 mg BIDPRN PRN PO 06/18/24 19:00 06/21/24 08:57 100 MG Enoxaparin Sodium 40 mg DAILY SC 06/19/24 10:00 06/19/24 11:10 40 MG Acetaminophen 650 mg Q6HP PRN PO 06/18/24 19:00 Nitroglycerin 0.4 mg Q5MINP PRN SL 06/18/24 22:00 Morphine Sulfate 2 mg Q30M PRN IV 06/18/24 22:00 Laboratory Results Laboratory Tests 06/21/24 09:40 Chemistry Test 06/21/24 09:40 Calcium Level 8.9 mg/dL (8.7-10.4) Urinalysis Test 06/18/24 19:02 Urine Test Negative (Negative) Labs and/or images reviewed: Labs reviewed by me Assessment/Plan Assessment/Plan Severe anemia Thrombocytosis Unintentional weight loss Generalized weakness Continuing current management. Hemoglobin is stable Still waiting for GI specialist consulted. Life Advisor consulted as outpatient Discharge planning if GI cleared the patient Plan discussed with: Patient My Orders Orders - ISIS KELLEY MD Procedure Category Date Status Time * Gi Dvh Wood Cabinetmaker CONS 06/20/24 Transmitted 13:40 * Hematology/Oncology CONS 06/21/24 Transmitted Consult 07:08 Date of Service: Jun 21, 2024 Billing Provider: ISIS KELLEY MD Common Visit Codes: [id number] INP/OBS CARE(HIGH) ISIS KELLEY MD Jun 21, 2024 11:34
[2024-06-22 01:07] VITALS: BP 155/67; PULSE 89; RESP 16; TEMP 98.6; O2SAT 90
[2024-06-22 05:00] VITALS: BP 115/66; PULSE 91; RESP 18; TEMP 98.5; O2SAT 97
[2024-06-22 08:00] VITALS: PULSE 92
[2024-06-22 09:00] VITALS: BP 127/72; PULSE 97; RESP 19; TEMP 98.8; O2SAT 98
[2024-06-22 11:02] LABS: Basophils # (auto) 0 10 ^3/uL (0-0.2); Basophils % (auto) 0.1 % (0.0-2.0); Eosinophils # (auto) 0.2 10 ^3/uL (0-0.8); Lymphocytes # (auto) 0.9 10 ^3/uL (0.4-5.4); Monocytes # (auto) 0.4 10 ^3/uL (0-1.3)
[2024-06-22 11:04] LABS: Eosinophils % (auto) 2.2 % (0.0-7.0); Hematocrit 28.4 % (36.0-46.0); Hemoglobin 8.8 g/dL (12.2-16.2); Lymphocytes % (auto) 12.3 % (10.0-50.0); Mean Corpuscular Hemoglobin 19.5 pg (28.0-32.0); Mean Corpuscular Hgb Conc. 30.9 g/dL (32.0-36.0); Mean Corpuscular Volume 63.1 fL (80.0-100.0); Monocytes % (auto) 5.7 % (0.0-12.0); Neutrophils # (auto) 5.8 10 ^3/uL (1.6-8.6); Neutrophils % (auto) 79.7 % (37.0-80.0); Platelet Count (auto) 487 10^3/uL (140-450); White Blood Cell 7.3 10^3/uL (4.4-10.8)
--- NOTE | 2024-06-22 11:27 | DVHPN2 ---
Subjective The patient seen and examined at bedside. Feel dizzy today. Reviewed: Care Plan, H&P, Labs, Medications, Previous Orders, Radiology Eyes: No Pain, No Vision change, No Conjunctivae inflammation, No Eyelid inflammation, No Other, No Redness ENT: No Ear pain, No Ear discharge, No Nose pain, No Nose discharge, No Nose congestion, No Mouth pain, No Mouth swelling, No Throat pain, No Throat swelling, No Other Cardiovascular: No Chest Pain, No Palpitations, No Orthopnea, No Paroxysmal Noc. Dyspnea, No Edema, No Lt Headedness, No Other Respiratory: No Cough, No Dry; Shortness of breath; No SOB with excertion, No Wheezing, No Hemoptysis, No Pleuritic Pain, No Sputum, No Other Gastrointestinal: No Nausea, No Vomiting, No Abdominal Pain, No Diarrhea, No Constipation, No Melena, No Hematochezia, No Other Genitourinary: No Dysuria, No Frequency, No Incontinence, No Hematuria, No Retention, No Other Musculoskeletal: No other, No neck pain, No shoulder pain, No arm pain, No back pain, No hand pain, No leg pain, No foot pain Skin: No Rash, No Lesions, No Jaundice, No Bruising, No Other Objective Vitals Vital Signs Date Time Temp Pulse Resp B/P (MAP) Pulse Ox O2 Delivery O2 Flow Rate FiO2 06/22/24 09:00 98.8 97 19 127/72 (90) 98 98.8 06/21/24 20:00 Room Air* 0 21 Intake/Output Intake and Output 06/22/24 07:00 Intake Total 400 ml Output Total 750 ml Balance -350 ml Intake Oral 400 ml Output Urine Total 750 ml # Bowel Movements 1 General Appearance: Alert, Oriented X3, Cooperative, No acute distress HEENT: Atraumatic, PERRLA, EOMI, Mucous membr. moist/pink Neck: Supple Lungs: Clear to auscultation, Normal air movement Cardiovascular: Regular rate, Normal S1, Normal S2, No murmurs, Gallops, Rubs Abdomen: Normal bowel sounds, Soft, No tenderness Neuro: Cranial nerves 3-12 NL Psych/Mental Status: Mental status NL Medications Current Medications Medications Dose Ordered Sig/Chris Route Start Time Stop Time Status Last Admin Dose Admin Pantoprazole Sodium 40 mg DAILY IV 06/19/24 10:00 06/22/24 09:17 40 MG Sodium Chloride 1,000 ml @ 60 mls/hr [id number] IV 06/18/24 19:00 06/21/24 05:53 60 MLS/HR Acetaminophen/ Hydrocodone Bitart 1 tab Q4HP PRN PO 06/18/24 19:00 Ondansetron HCl 4 mg Q4HP PRN IV 06/18/24 19:00 Docusate Sodium 100 mg BIDPRN PRN PO 06/18/24 19:00 06/21/24 08:57 100 MG Enoxaparin Sodium 40 mg DAILY SC 06/19/24 10:00 06/22/24 09:20 40 MG Acetaminophen 650 mg Q6HP PRN PO 06/18/24 19:00 Nitroglycerin 0.4 mg Q5MINP PRN SL 06/18/24 22:00 Morphine Sulfate 2 mg Q30M PRN IV 06/18/24 22:00 Laboratory Results Laboratory Tests 06/21/24 09:40 Urinalysis Test 06/18/24 19:02 Urine Test Negative (Negative) Assessment/Plan Assessment/Plan Severe anemia Thrombocytosis Unintentional weight loss Generalized weakness Continuing current management. Hemoglobin is stable Still waiting for GI specialist consulted. Land Acquisition Analyst consulted as outpatient Discharge planning if GI cleared the patient My Orders Orders - ISIS KELLEY MD Procedure Category Date Status Time Complete Blood Count LAB 06/22/24 In Process 09:45 ISIS KELLEY MD Jun 22, 2024 11:27
[2024-06-22 11:39] LABS: Red Cell Distribution Width 32.8 % (11.8-14.3)
--- NOTE | 2024-06-22 12:18 | DVHDS2 ---
Discharge Summary Date of Admission Jun 18, 2024 at 21:54 Date of Discharge: Jun 22, 2024 Labs/Diagnostic Data: Laboratory Results Test 06/22/24 10:14 06/21/24 09:40 06/20/24 05:22 06/19/24 05:29 White Blood Count 7.3 10^3/uL (4.4-10.8) Red Blood Count 4.50 10^6/uL (4.0-5.20) Hemoglobin 8.8 g/dL (12.2-16.2) Hematocrit 28.4 % (36.0-46.0) Mean Corpuscular Volume 63.1 fL (80.0-100.0) Mean Corpuscular Hemoglobin 19.5 pg (28.0-32.0) Mean Corpuscular Hemoglobin Concent 30.9 g/dL (32.0-36.0) Red Cell Distribution Width 32.8 % (11.8-14.3) Platelet Count 487 10^3/uL (140-450) Mean Platelet Volume 8.1 fL (6.9-10.8) Neutrophils (%) (Auto) 79.7 % (37.0-80.0) Lymphocytes (%) (Auto) 12.3 % (10.0-50.0) Monocytes (%) (Auto) 5.7 % (0.0-12.0) Eosinophils (%) (Auto) 2.2 % (0.0-7.0) Basophils (%) (Auto) 0.1 % (0.0-2.0) Neutrophils # (Auto) 5.8 10 ^3/uL (1.6-8.6) Lymphocytes # (Auto) 0.9 10 ^3/uL (0.4-5.4) Monocytes # (Auto) 0.4 10 ^3/uL (0-1.3) Eosinophils # (Auto) 0.2 10 ^3/uL (0-0.8) Basophils # (Auto) 0 10 ^3/uL (0-0.2) Nucleated Red Blood Cells 0.0 % Sodium Level 140 mmol/L (136-145) Potassium Level 3.9 mmol/L (3.5-5.1) Chloride Level 109 mmol/L (98-107) Carbon Dioxide Level 23 mmol/L (20-31) Anion Gap 8 (5-15) Blood Urea Nitrogen 8 mg/dL (9-23) Creatinine 0.42 mg/dL (0.550-1.02) Glomerular Filtration Rate Calc 118 mL/min (>90) BUN/Creatinine Ratio 19.0 (10.0-20.0) Serum Glucose 164 mg/dL (74-106) Calcium Level 8.9 mg/dL (8.7-10.4) Platelet Estimate Adequate Hypochromasia (manual) Moderate Anisocytosis (manual) Moderate Microcytosis Moderate Ovalocytes Few Total Bilirubin 0.4 mg/dL (0.2-1.0) Aspartate Amino Transferase (AST) 11 U/L (13-40) Alanine Aminotransferase (ALT) < 9 U/L (7-40) Alkaline Phosphatase 80 U/L (46-116) Total Protein 5.8 g/dL (5.7-8.2) Albumin 3.4 g/dL (3.2-4.8) Test 06/18/24 19:02 06/18/24 14:12 Urine Test Negative (Negative) Tear Drop Cells Few Schistocytes Few Other Laboratory Tests 06/22/24 10:14 06/21/24 09:40 Final Diagnosis/Problems List anemia Discharge Disposition: Home Discharge Instruct/Medications Diet: Regular Activity: No Restrictions, As Tolerated Follow Up/Referral: pcp 1-2 weeks Heme onc as outpatient per schedule GI as outpatient per schedule Medications: resume home meds Discharge Statement: "Patient was advised to return to the ER or call 911 if any headaches, dizziness, shortness of breath, chest pain, abdominal pain, bleeding, fevers, or worsening of medical condition. Patient was counseled about treatment plan, medications, possible side effects, patientverbalized understanding. All questions were answered to the best of my ability. This discharge took greater then 30 minutes in planning, reviewing documentation, counseling the patient, and discussing with other team members." ASSESSMENT ASSESSMENT Assessment anemia ISIS KELLEY MD Jun 22, 2024 12:18
[2024-06-22 13:00] VITALS: BP 105/66; PULSE 106; RESP 19; TEMP 98.8; O2SAT 97
[2024-06-22] MEDS: SUCRALFATE 1 GM TAB PO ONE (14:49)
[2024-06-22 16:00] VITALS: BP 123/72; PULSE 101; RESP 19; TEMP 99.7; O2SAT 95
[2024-06-22] MEDS ORDERED: SUCRALFATE 1 GM TAB PO SCH (17:00)
--- NOTE | 2024-06-22 17:28 | DVHCONRES ---
Date Seen: Jun 22, 2024 Resident Creating Document: SNOW HAQ RESIDENT History of Present Illness The patient is a 49-year-old female who denies past medical history presented to [facility] ED for evaluation of abnormal labs. Patient reports feeling weakness, increasing dizziness, associated shortness of breath, getting worse today that prompted this visit. Patient was seen and evaluated in the ED, laboratory data shows WBC 9.7, hemoglobin 4.9, hematocrit 17.5, platelets 592, sodium 137, potassium 4.2, BUN 15, creatinine 0.55, GFR 111, glucose 107. Sherita ent will receive 2 units of PRBC, please see medication orders section in the computer. On my assessment, patient denied chest pain, no headache, no dizziness at this moment, no diaphoresis, no nausea, no vomiting, no fever, no chills. Patient was admitted for further evaluation and medical management. GI consultation for low hemoglobin. Patient seen and examined at the bedside. Says that wants to go home. No acute complaint. Hemoglobin stable in 8 Family History: Diabetes mellitus G8 MOTHER Hypercholesterolemia G8 MOTHER Allergies: Coded Allergies: NO KNOWN ALLERGIES (Unverified , 03/27/13) Home Meds Reported Medications Baclofen (Baclofen) 20 Mg Tab, 10 MG PO DAILY, TAB 06/19/24 Cetirizine HCl (Cetirizine Hydrochloride) 10 Mg Tab, 1 TAB PO DAILY 06/19/24 Pantoprazole Sodium Sesquihydr (Pantoprazole Sodium Dr) 40 Mg Tab, 40 MG PO DAILY 06/19/24 Current Medications Current Medications Medications (Trade) Dose Ordered Sig/Chris Route PRN Reason Start Time Stop Time Status Last Admin Pantoprazole Sodium (Protonix) 40 mg BID IV 06/22/24 22:00 Sucralfate (Carafate Tab) 1 gm QIDACHS PO 06/22/24 17:00 Review of Systems Eyes: No Pain, No Vision change, No Conjunctivae inflammation, No Eyelid inflammation, No Other, No Redness ENT: No Ear pain, No Ear discharge, No Nose pain, No Nose discharge, No Nose congestion, No Mouth pain, No Mouth swelling, No Throat pain, No Throat swelling, No Other Cardiovascular: No Chest Pain, No Palpitations, No Orthopnea, No PND, No Edema, No Lt Headedness, No Other Respiratory: No Cough, No Dry, No Shortness of breath, No SOB with exertion, No Wheezing, No Hemoptysis, No Pleuritic Pain, No Sputum, No Other Gastrointestinal: No Nausea, No Vomiting, No Abdominal Pain, No Diarrhea, No Constipation, No Melena, No Hematochezia, No Other Genitourinary: No Dysuria, No Frequency, No Incontinence, No Hematuria, No Retention, No Other Musculoskeletal: No other, No neck pain, No shoulder pain, No arm pain, No back pain, No hand pain, No leg pain, No foot pain Skin: No Rash, No Lesions, No Jaundice, No Bruising, No Other Vital Signs Vital Signs Date Time Temp Pulse Resp B/P (MAP) Pulse Ox O2 Delivery O2 Flow Rate FiO2 06/22/24 16:00 99.7 101 19 123/72 (89) 95 99.7 06/22/24 08:00 Room Air* 0 21 Physical Exam Patient lying in bed, in no acute distress General: Well-built, afebrile, palor, mucosae are moist Cardiovascular: Regular S1 and S2. No murmurs, gallops or rubs. No JVD elevation. No pedal edema Respiratory: Normal B/L air entry on room air. Clear lung sounds on auscultation Abdomen: Soft, nontender, nondistended, normoactive bowel sounds, no rebound tenderness, no organomegaly, no masses Genitourinary: Deferred MSK/skin: Mobilizes 4 limbs. Skin is dry and warm Neurological: No motor, no sensitive deficits, normal speech. Pupils are isocoric and reactive. Psych/Mental Status: A/Ox4 Labs/Diagnostic Data Labs Test 06/22/24 10:14 06/21/24 09:40 06/20/24 05:22 06/19/24 05:29 Range/Units White Blood Count 7.3 4.4-10.8 10^3/uL Red Blood Count 4.50 4.0-5.20 10^6/uL Hemoglobin 8.8 L 12.2-16.2 g/dL Hematocrit 28.4 L 36.0-46.0 % Mean Corpuscular Volume 63.1 L 80.0-100.0 fL Mean Corpuscular Hemoglobin 19.5 L 28.0-32.0 pg Mean Corpuscular Hemoglobin Concent 30.9 L 32.0-36.0 g/dL Red Cell Distribution Width 32.8 H 11.8-14.3 % Platelet Count 487 H 140-450 10^3/uL Mean Platelet Volume 8.1 6.9-10.8 fL Neutrophils (%) (Auto) 79.7 37.0-80.0 % Lymphocytes (%) (Auto) 12.3 10.0-50.0 % Monocytes (%) (Auto) 5.7 0.0-12.0 % Eosinophils (%) (Auto) 2.2 0.0-7.0 % Basophils (%) (Auto) 0.1 0.0-2.0 % Neutrophils # (Auto) 5.8 1.6-8.6 10 ^3/uL Lymphocytes # (Auto) 0.9 0.4-5.4 10 ^3/uL Monocytes # (Auto) 0.4 0-1.3 10 ^3/uL Eosinophils # (Auto) 0.2 0-0.8 10 ^3/uL Basophils # (Auto) 0 0-0.2 10 ^3/uL Nucleated Red Blood Cells 0.0 % Sodium Level 140 136-145 mmol/L Potassium Level 3.9 3.5-5.1 mmol/L Chloride Level 109 H 98-107 mmol/L Carbon Dioxide Level 23 20-31 mmol/L Anion Gap 8 5-15 Blood Urea Nitrogen 8 L 9-23 mg/dL Creatinine 0.42 L 0.550-1.02 mg/dL Glomerular Filtration Rate Calc 118 >90 mL/min BUN/Creatinine Ratio 19.0 10.0-20.0 Serum Glucose 164 H 74-106 mg/dL Calcium Level 8.9 8.7-10.4 mg/dL Platelet Estimate Adequate Hypochromasia (manual) Moderate Anisocytosis (manual) Moderate Microcytosis Moderate Ovalocytes Few Total Bilirubin 0.4 0.2-1.0 mg/dL Aspartate Amino Transferase (AST) 11 L 13-40 U/L Alanine Aminotransferase (ALT) < 9 7-40 U/L Alkaline Phosphatase 80 46-116 U/L Total Protein 5.8 5.7-8.2 g/dL Albumin 3.4 3.2-4.8 g/dL Test 06/18/24 19:02 06/18/24 14:12 Range/Units Urine Test Negative Negative Tear Drop Cells Few Schistocytes Few Assessment Possible lower GI bleeding secondary to questionable transverse colon mass Iron-deficiency Anemia secondary to above requiring transfusion Left adnexal lesion Generalized weakness secondary to anemia Plan: Patient was advised on the need of EGD and colonoscopy, patient would like to do this as outpatient. Advised outpatient colonoscopy within 1-2 weeks. We will do outpatient CEA, CA 19 9 and CA 125 levels. Given the stable H&H, patient has been discharged. She has been prescribed pantoprazole 40 mg daily Plan discussed with patient in which all questions have been answered Case discussed with Dr. Figueroa Plan discussed with: Patient, Spouse (At the bedside) SNOW HAQ RESIDENT Jun 22, 2024 17:28
[2024-06-22] MEDS ORDERED: PANTOPRAZOLE 40 MG/10 ML VIAL INJ IV SCH (22:00)
== END 2024-06-22 16:12 | disposition home or self-care (01) | DRG 663 ==
LOC: ER 13:39 → TELE 21:54 → TELE-CENTR 23:55
PROVIDERS: ADMIT Internal Medicine; ATTEND Internal Medicine
PROC: 30233N1 Transfusion of Nonautologous Red Blood Cells into Peripheral Vein, Percutaneous Approach (ICD-10-PCS; principal; 2024-06-18)
DX: D50.9 Iron deficiency anemia, unspecified (principal); D75.839 Thrombocytosis, unspecified; R63.4 Abnormal weight loss; Z83.3 Family history of diabetes mellitus; Z79.899 Other long term (current) drug therapy; Z68.25 Body mass index [BMI] 25.0-25.9, adult
CPT/HCPCS: 36415; 36430; 71260; 74177; 80048; 80053; 81025; 85025; 86850; 86900; 86901; 86920; 93005; 99291; G0378; J2470

== ENCOUNTER 2024-08-06 09:51 | Inpatient (IN) | payer MEDICAID ==
[~2024-08-06] VITALS: Ht 167.6 cm; Wt 60.5 kg
[~2024-08-06 09:51] MED LIST changes: +BACL20TA PO; +CETI-120 PO; -NORPTMEDS CO; +PANT40TA57 PO
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
--- NOTE | 2024-08-06 10:23 | ECG ---
[facility] Test Date: 2024-08-06 Test Time: 10:21:59 Pat Name: ALIYA FUENTES Department: ER Room: 0212 Gender: F Home Coordinator: KATLYN : 1975 Requested By: SHAHBAZ ANDERSEN Order Number: [id number] Reading MD: Anirudh Mckinney Measurements Intervals [place] Rate: 99 P: 56 AK: 124 QRS: 59 QRSD: 94 T: 13 QT: 362 QTc: 465 Interpretive Statements Sinus rhythm Electronically Signed On 08-07-2024 19:15:57 PDT by Anirudh Mckinney Please click the below link to view image of tracing.
--- NOTE | 2024-08-06 10:37 | DVH ---
EXAM: XY CHEST PORTABLE Indication: sob Technique: Single frontal view of the chest was obtained Comparison: None FINDINGS: Lines and Tubes: None Lungs: No focal consolidation. Pleura: No effusion. No pneumothorax. Cardiomediastinal contours: Unremarkable Bones: No acute osseous abnormality. IMPRESSION: No acute cardiopulmonary disease.
[2024-08-06 10:49] LABS: Basophils # (auto) 0 10 ^3/uL (0-0.2); Eosinophils # (auto) 0 10 ^3/uL (0-0.8); Hematocrit 29.4 % (36.0-46.0); Hemoglobin 9.1 g/dL (12.2-16.2); Mean Corpuscular Hemoglobin 19.7 pg (28.0-32.0); Monocytes # (auto) 0.5 10 ^3/uL (0-1.3)
[2024-08-06 10:50] LABS: Basophils % (auto) 0.1 % (0.0-2.0); Eosinophils % (auto) 0.2 % (0.0-7.0); Lymphocytes # (auto) 1.1 10 ^3/uL (0.4-5.4); Lymphocytes % (auto) 9.8 % (10.0-50.0); Mean Corpuscular Hgb Conc. 30.9 g/dL (32.0-36.0); Mean Corpuscular Volume 63.8 fL (80.0-100.0); Monocytes % (auto) 4.2 % (0.0-12.0); Neutrophils # (auto) 9.3 10 ^3/uL (1.6-8.6); Neutrophils % (auto) 85.7 % (37.0-80.0); Platelet Count (auto) 680 10^3/uL (140-450); Red Blood Cells 4.61 10^6/uL (4.0-5.20); White Blood Cell 10.8 10^3/uL (4.4-10.8)
[2024-08-06 10:55] VITALS: PULSE 89; RESP 16; O2SAT 100
[2024-08-06 10:56] LABS: Red Cell Distribution Width 28.3 % (11.8-14.3)
[2024-08-06 10:58] LABS: Chloride 102 mmol/L (98-107); Potassium 4.1 mmol/L (3.5-5.1); Sodium 137 mmol/L (136-145)
[2024-08-06 10:59] LABS: Anion Gap 12 (5-15); Calcium 9.2 mg/dL (8.7-10.4); Carbon Dioxide 23 mmol/L (20-31)
[2024-08-06 11:04] LABS: BUN/Creatinine Ratio 23.1 (10.0-20.0); Blood Urea Nitrogen 15 mg/dL (9-23); Glucose 140 mg/dL (74-106); INR 1.04 (0.9-1.15); Partial Thromboplastin Time 23.6 SEC (24.5-34.5)
[2024-08-06] MEDS: SODIUM CHLORIDE 0.9% 1,000 ML IV ONE (11:36)
[2024-08-06] MEDS: ACETAMINOPHEN 500 MG TAB or CAP PO ONE (11:37)
[2024-08-06] MEDS: ONDANSETRON HCL 4 MG/2 ML VIAL IV ONE ×2 (11:37→19:39)
[2024-08-06 12:19] LABS: Anisocytosis Moderate; Hypochromia Moderate; Platelet Estimate Increased
[2024-08-06 12:20] LABS: Ovalocytes FEW
--- NOTE | 2024-08-06 13:02 | DVH ---
EXAM: CT HEAD WITHOUT CONTRAST HISTORY: headache nausea dizzy COMPARISON: None TECHNIQUE: Axial images of the head were obtained and reformatted in coronal and sagittal planes. All CT scans at this medical facility are performed using dose modulation techniques as appropriate t o a performed exam including the following: Automated exposure control was utilized; adjustment of th e MA and/or KV according to patient size; and use of iterative reconstruction technique. CT Dose: CTDI volume is 53 mGy. Dose-length product is 863 mGy*cm FINDINGS: There is no evidence of acute intracranial hemorrhage, mass, mass effect midline shift. There is no h ydrocephalus or extra-axial fluid collection. [place]-white matter differentiation is maintained. Ther e are few nonspecific scattered small dystrophic calculi in the right and left cerebrum. The visualized paranasal sinuses and mastoid air cells are clear. The calvarium is intact. IMPRESSION: 1. No acute intracranial process. HS:Y
[2024-08-06 15:16] LABS: Urine Bacteria None Seen /hpf (None Seen)
[2024-08-06 15:26] LABS: Urine Blood Negative /uL (Negative); Urine Clarity Turbid (Clear); Urine Color Dark Yellow (Yellow); Urine Mucus FEW (None Seen); Urine Protein, UAD 1+ (Negative); Urine Specific Gravity 1.019 (1.001-1.035); Urine Squamous Epithelial Cell FEW /hpf (<5); Urine Urobilinogen 2 mg/dL (Negative); Urine WBC 58 /HPF (0-5)
[2024-08-06] MEDS: cefTRIAXone 1GM/50ML D5W 50 ML IV ONE (16:49)
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
[2024-08-06] MEDS ORDERED: DOCUSATE SOD 100 MG CAP PO PRN (18:15)
[2024-08-06] MEDS ORDERED: HYDROcodone-ACET 5/325MG TAB PO PRN (18:15)
[2024-08-06] MEDS: LACTATED RINGER'S 1,000 ML IV ONE (18:30)
[2024-08-06 19:18] VITALS: PULSE 74; RESP 14; O2SAT 100
[2024-08-06] MEDS: ACETAMINOPHEN 325 MG TAB PO PRN (19:39)
[2024-08-06 21:00] VITALS: BP 105/69; PULSE 77; RESP 19; TEMP 98; O2SAT 92
[2024-08-06] MEDS: SODIUM CHLOR 0.9% PF (SALINE LOCK) 10ML VIAL/SYR IV SCH (22:08)
[2024-08-06 23:05] VITALS: BP 105/69; PULSE 77; RESP 18; TEMP 98; O2SAT 92
[2024-08-07] VITALS (8 sets, daily range): BP systolic 106–111; BP diastolic 58–67; PULSE 69–88; RESP 17–18; TEMP 97.8–98.2; O2SAT 95–100
[2024-08-07 08:13] LABS: Basophils # (auto) 0 10 ^3/uL (0-0.2); Basophils % (auto) 0.2 % (0.0-2.0); Eosinophils # (auto) 0 10 ^3/uL (0-0.8); Eosinophils % (auto) 0.2 % (0.0-7.0); Hematocrit 24.8 % (36.0-46.0); Hemoglobin 7.7 g/dL (12.2-16.2); Lymphocytes # (auto) 0.8 10 ^3/uL (0.4-5.4); Lymphocytes % (auto) 11.1 % (10.0-50.0); Mean Corpuscular Hemoglobin 19.6 pg (28.0-32.0); Mean Corpuscular Volume 63.4 fL (80.0-100.0); Monocytes # (auto) 0.5 10 ^3/uL (0-1.3); Monocytes % (auto) 6.2 % (0.0-12.0); Neutrophils # (auto) 6.2 10 ^3/uL (1.6-8.6); Neutrophils % (auto) 82.3 % (37.0-80.0); Platelet Count (auto) 550 10^3/uL (140-450); Red Blood Cells 3.91 10^6/uL (4.0-5.20); Red Cell Distribution Width 28.1 % (11.8-14.3); White Blood Cell 7.6 10^3/uL (4.4-10.8)
[2024-08-07] MEDS ORDERED: FERR1TAB8 PO (08:40)
[2024-08-07 08:46] LABS: Alanine Aminotransferase 12 U/L (7-40); Alkaline Phosphatase 93 U/L (46-116); Anion Gap 8 (5-15); Aspartate Aminotransferase 23 U/L (13-40); Blood Urea Nitrogen 13 mg/dL (9-23); Carbon Dioxide 23 mmol/L (20-31); Glucose 86 mg/dL (74-106); Potassium 3.8 mmol/L (3.5-5.1); Sodium 139 mmol/L (136-145)
[2024-08-07 08:48] LABS: Bilirubin, Total 0.2 mg/dL (0.2-1.0); Calcium 7.9 mg/dL (8.7-10.4); Chloride 108 mmol/L (98-107); Total Protein 5.6 g/dL (5.7-8.2)
[2024-08-07] MEDS: cefTRIAXone 1GM/50ML D5W 50 ML IV SCH (09:17)
[2024-08-07] MEDS: ENOXAPARIN SOD 40 MG/0.4 ML SYRINGE SC SCH (09:17)
[2024-08-07] MEDS ORDERED: BACL10TA PO (10:10)
--- NOTE | 2024-08-07 12:48 | DVHPN2 ---
Reviewed: Care Plan, H&P, Labs, Medications, Previous Orders, Radiology Changes from previous H/P or p: No Changes Objective Vitals Vital Signs Date Time Temp Pulse Resp B/P (MAP) Pulse Ox O2 Delivery O2 Flow Rate FiO2 08/07/24 09:00 97.8 76 17 106/63 (77) 98 97.8 08/06/24 23:05 Room Air* 0 21 Intake/Output Intake and Output 08/07/24 07:00 Intake Total 1350 ml Output Total 200 ml Balance 1150 ml Intake Oral 100 ml IV Total 1250 ml Output Urine Total 200 ml Medications Current Medications Medications Dose Ordered Sig/Chris Route Start Time Stop Time Status Last Admin Dose Admin Ceftriaxone Sodium 50 ml @ 100 mls/hr DAILY IV 08/07/24 10:00 08/07/24 09:17 100 MLS/HR Sodium Chloride 10 ml Q8HR IV 08/06/24 22:00 08/07/24 09:17 10 ML Docusate Sodium 100 mg BIDPRN PRN PO 08/06/24 18:15 Acetaminophen 650 mg Q6HP PRN PO 08/06/24 18:15 08/06/24 19:39 650 MG Acetaminophen/ Hydrocodone Bitart 1 tab Q4HP PRN PO 08/06/24 18:15 Hydromorphone HCl 0.5 mg Q4HP PRN IV 08/06/24 18:15 Ondansetron HCl 4 mg Q4HP PRN IV 08/06/24 18:15 Enoxaparin Sodium 40 mg DAILY SC 08/07/24 10:00 08/07/24 09:17 40 MG Laboratory Results Laboratory Tests 08/07/24 05:35 Chemistry Test 08/07/24 05:35 Albumin 3.0 g/dL (3.2-4.8) L Calcium Level 7.9 mg/dL (8.7-10.4) L Total Protein 5.6 g/dL (5.7-8.2) L LFT Test 08/07/24 05:35 Alanine Aminotransferase (ALT) 12 U/L (7-40) Alkaline Phosphatase 93 U/L (46-116) Aspartate Amino Transferase (AST) 23 U/L (13-40) Total Bilirubin 0.2 mg/dL (0.2-1.0) Urinalysis Test 08/06/24 14:55 Urine Color Dark yellow (Yellow) Urine Clarity Turbid (Clear) H Urine pH 8.0 (5.0-9.0) Urine Specific [place] 1.019 (1.001-1.035) Urine Protein 1+ (Negative) H Urine Ketones Negative (Negative) Urine Blood Negative /uL (Negative) Urine Nitrite 2+ (Negative) H Urine Bilirubin Negative (Negative) Urine Urobilinogen 2 mg/dL (Negative) H Urine Leukocyte Esterase 3+ /uL (Negative) Urine RBC 8 /hpf (0 - 4) Urine Microscopic WBC 58 /HPF (0-5) H Urine Squamous Epithelial Cells Few /hpf (<5) Urine Bacteria None seen /hpf (None Seen) Urine Mucus Few (None Seen) Urine Glucose Normal mg/dL (Normal) Microbiology Microbiology Date/Time Source Procedure Growth Status 08/06/24 14:55 Voided Urine Urine Culture - Preliminary Resulted Labs and/or images reviewed: Labs reviewed by me, Image(s) reviewed by me Assessment/Plan Assessment/Plan Acute urinary tract infection: Urine cultures growing Gram-negative rods, continue Rocephin History of anemia History of multiple blood transfusions Anemia hemoglobin 7.7: Will watch and transfuse if it goes below 7.0, GI consult for Dr. Wilkins Plan discussed with: Patient Date of Service: Aug 07, 2024 Billing Provider: SHAWANDA TRAN MD Common Visit Codes: [id number] INP/OBS CARE(HIGH) SHAWANDA TRAN MD Aug 07, 2024 12:48
[2024-08-07] MEDS: DOCUSATE SOD 100 MG CAP PO ONE (14:28)
[2024-08-07] MEDS: GOLYTELY 4L KIT PO ONE (14:29)
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
[2024-08-08] VITALS (10 sets, daily range): BP systolic 110–123; BP diastolic 62–76; PULSE 72–88; RESP 15–18; TEMP 98.2–98.7; O2SAT 92–99
[2024-08-08 06:52] LABS: Basophils # (auto) 0 10 ^3/uL (0-0.2); Basophils % (auto) 0.2 % (0.0-2.0); Eosinophils # (auto) 0.1 10 ^3/uL (0-0.8); Hemoglobin 7.4 g/dL (12.2-16.2); Monocytes # (auto) 0.5 10 ^3/uL (0-1.3); Red Cell Distribution Width 28.5 % (11.8-14.3); White Blood Cell 6.1 10^3/uL (4.4-10.8)
[2024-08-08 06:54] LABS: Eosinophils % (auto) 0.9 % (0.0-7.0); Hematocrit 24.4 % (36.0-46.0); Lymphocytes % (auto) 15.8 % (10.0-50.0); Mean Corpuscular Hemoglobin 19.3 pg (28.0-32.0); Mean Corpuscular Hgb Conc. 30.3 g/dL (32.0-36.0); Mean Corpuscular Volume 63.5 fL (80.0-100.0); Monocytes % (auto) 8.3 % (0.0-12.0); Neutrophils # (auto) 4.6 10 ^3/uL (1.6-8.6); Neutrophils % (auto) 74.8 % (37.0-80.0); Platelet Count (auto) 537 10^3/uL (140-450); Red Blood Cells 3.84 10^6/uL (4.0-5.20)
[2024-08-08 07:10] LABS: Alanine Aminotransferase 11 U/L (7-40); Alkaline Phosphatase 93 U/L (46-116); Anion Gap 9 (5-15); Aspartate Aminotransferase 18 U/L (13-40); Carbon Dioxide 23 mmol/L (20-31); Potassium 3.5 mmol/L (3.5-5.1); Sodium 140 mmol/L (136-145)
[2024-08-08] MEDS ORDERED: SODIUM CHLORIDE LOCK 10 ML ONE (07:10)
[2024-08-08 07:15] LABS: Albumin 2.9 g/dL (3.2-4.8); Bilirubin, Total 0.2 mg/dL (0.2-1.0); Blood Urea Nitrogen 9 mg/dL (9-23); Calcium 7.9 mg/dL (8.7-10.4); Chloride 108 mmol/L (98-107); Glucose 74 mg/dL (74-106); Total Protein 5.4 g/dL (5.7-8.2)
--- NOTE | 2024-08-08 07:53 | DVHPN2 ---
Reviewed: Care Plan, H&P, Labs, Medications, Previous Orders, Radiology Changes from previous H/P or p: No Changes Objective Vitals Vital Signs Date Time Temp Pulse Resp B/P (MAP) Pulse Ox O2 Delivery O2 Flow Rate FiO2 08/08/24 05:05 98.2 88 18 112/66 (81) 97 98.2 08/07/24 20:00 Room Air* 0 21 Intake/Output Intake and Output 08/08/24 07:00 Intake Total 760 ml Output Total 200 ml Balance 560 ml Intake Oral 760 ml Output Urine Total 200 ml # Bowel Movements 5 Medications Current Medications Medications Dose Ordered Sig/Chris Route Start Time Stop Time Status Last Admin Dose Admin Ceftriaxone Sodium 50 ml @ 100 mls/hr DAILY IV 08/07/24 10:00 08/07/24 09:17 100 MLS/HR Sodium Chloride 10 ml Q8HR IV 08/06/24 22:00 08/08/24 05:35 10 ML Docusate Sodium 100 mg BIDPRN PRN PO 08/06/24 18:15 Acetaminophen 650 mg Q6HP PRN PO 08/06/24 18:15 08/06/24 19:39 650 MG Acetaminophen/ Hydrocodone Bitart 1 tab Q4HP PRN PO 08/06/24 18:15 Hydromorphone HCl 0.5 mg Q4HP PRN IV 08/06/24 18:15 Ondansetron HCl 4 mg Q4HP PRN IV 08/06/24 18:15 Enoxaparin Sodium 40 mg DAILY SC 08/07/24 10:00 08/07/24 09:17 40 MG Laboratory Results Laboratory Tests 08/08/24 05:44 Chemistry Test 08/08/24 05:44 Albumin 2.9 g/dL (3.2-4.8) L Calcium Level 7.9 mg/dL (8.7-10.4) L Total Protein 5.4 g/dL (5.7-8.2) L LFT Test 08/08/24 05:44 Alanine Aminotransferase (ALT) 11 U/L (7-40) Alkaline Phosphatase 93 U/L (46-116) Aspartate Amino Transferase (AST) 18 U/L (13-40) Total Bilirubin 0.2 mg/dL (0.2-1.0) Urinalysis Test 08/06/24 14:55 Urine Color Dark yellow (Yellow) Urine Clarity Turbid (Clear) H Urine pH 8.0 (5.0-9.0) Urine Specific [place] 1.019 (1.001-1.035) Urine Protein 1+ (Negative) H Urine Ketones Negative (Negative) Urine Blood Negative /uL (Negative) Urine Nitrite 2+ (Negative) H Urine Bilirubin Negative (Negative) Urine Urobilinogen 2 mg/dL (Negative) H Urine Leukocyte Esterase 3+ /uL (Negative) Urine RBC 8 /hpf (0 - 4) Urine Microscopic WBC 58 /HPF (0-5) H Urine Squamous Epithelial Cells Few /hpf (<5) Urine Bacteria None seen /hpf (None Seen) Urine Mucus Few (None Seen) Urine Glucose Normal mg/dL (Normal) Microbiology Microbiology Date/Time Source Procedure Growth Status 08/06/24 14:55 Voided Urine Urine Culture - Preliminary Resulted Labs and/or images reviewed: Labs reviewed by me, Image(s) reviewed by me Assessment/Plan Assessment/Plan Acute urinary tract infection: Urine cultures growing Gram-negative rods, continue Rocephin History of anemia History of multiple blood transfusions Anemia hemoglobin 7.7: Will watch and transfuse if it goes below 7.0, GI consult for Dr. Wilkins appreciated Patient getting endoscopy by GI Dr today Plan discussed with: Patient My Orders Orders - SHAWANDA TRAN MD Procedure Category Date Status Time * Gi D[facility] [employer] CONS 08/07/24 Transmitted 12:50 Complete Blood Count LAB 08/08/24 In Process 04:00 Rbc Morphology LAB 08/08/24 In Process 05:44 Date of Service: Aug 08, 2024 Billing Provider: SHAWANDA TRAN MD Common Visit Codes: [id number] INP/OBS CARE(HIGH) SHAWANDA TRAN MD Aug 08, 2024 07:53
[2024-08-08 08:34] LABS: Anisocytosis Slight; Hypochromia Moderate; Platelet Estimate Increased
[2024-08-08] MEDS: MIDAZOLAM HCL 5 MG/ML-1ML VIAL ONE (10:38)
[2024-08-08] MEDS: fentaNYL CITRATE 100 MCG/2 ML VL ONE (10:38)
[2024-08-08] MEDS: LIDOCAINE VISCOUS 2% 15ML UD ONE (10:38)
[2024-08-08] MEDS: diphenhdrAMINE HCL 50 MG/1 ML VL ONE (10:42)
--- NOTE | 2024-08-08 11:55 | DVHOP2 ---
Operative Report DATE OF PROCEDURE: 08/08/24 INDICATIONS FOR THE PROCEDURE: Anemia black stools on iron pills PROCEDURE PERFORMED: 1. Esophagogastroduodenoscopy and biopsy with cold biopsy forceps POSTOPERATIVE DIAGNOSIS: INFORMED CONSENT: The risks and benefits and alternatives were explained to the patient and informed consent was obtained. PROCEDURE IN DETAIL: The patient was kept NPO after midnight. In the endoscopy room, she was given IV fentanyl 100 mcg and Versed, 5 mg titrated slowly to get her sedated. Olympus gastroscope was passed through the oropharynx into the stomach and the duodenum, and the findings were as follows. Esophagus: Within normal limits noHiatal hernia No Esophagitis No Esophageal ulcer No Esophageal stricture Stomach: Fundus: Normal Body and antrum Mild antral gastritis biopsies taken to ensure no H pylori with a cold biopsy forceps Pylorus normal Duodenum Unremarkable but biopsies taken with the cold biopsy forceps because of the anemia to ensure there is no other diseases like celiac disease to account for the anemia Endoscopic impression Small hiatal hernia Gastritis mild biopsies taken with the cold biopsy forceps Suggestions Await the biopsy result Unable to explain the anemia and symptoms from this study will recommend a colon evaluation also Thank you for asking me to take part in the care of this pleasant patient Regards MARCIE Smyth MD Aug 08, 2024 11:55
--- NOTE | 2024-08-08 12:08 | DVHOP2 ---
Operative Report DATE OF PROCEDURE: 08/08/24 INDICATIONS FOR THE PROCEDURE: Anemia GI bleeding PROCEDURE PERFORMED: Colonoscopy and biopsy by cold biopsy forceps Colonoscopy and tattooing of obstructive lesion of the hepatic flexure POSTOPERATIVE DIAGNOSIS: Large friable mass lesion obstructive at the hepatic flexure occupying 80% of the lumen consistent with malignancy of the hepatic flexure of the colon INFORMED CONSENT: The risks and benefits and alternatives were explained to the patient and informed consent was obtained. PROCEDURE IN DETAIL: The patient was kept NPO after midnight. Conscious sedation was given with 6 mg of Versed and 125 mcg of fentanyl and 50 mg of Benadryl Olympus colonoscope was passed through the rectum all the way up to hepatic flexure where a large obstructive tumor was found and the scope could not be passed beyond and the findings were as follows: Findings: At the hepatic flexure there was a large friable obstructive mass lesions of about 7-8 cm at least occupying the lumen about 80% of it beyond with the scope could not be passed because of the obstruction from the tumor The tumor is highly friable and highly suspicious for malignant neoplasm Multiple biopsies were taken by cold biopsy forceps and tattooing was done of this area for delineation for the surgeon for further intervention Rest of the colon had lot of stool particles which was cleaned out as much as possible grossly no lesions seen Examination is slightly suboptimal because of the poor prep 2 small internal hemorrhoids without any gross bleeding ENDOSCOPIC IMPRESSION: Large obstructive mass lesion of the hepatic flexure highly consistent with malignancy of the colon, multiple biopsies taken for the cold biopsy forceps and tattooing done Slightly poor prep Two small internal hemorrhoids without bleeding SUGGESTIONS: Await the biopsy results Surgical consult saima Preop CEA will recommend a dedicated CT scan of the abdomen and pelvis with oral and IV contrast even though one has been done in May Follow-up surveillance for colon cancer screening after surgery Thank you Dr. Wilkins With warm regards, MARCIE WILKINS MD Aug 08, 2024 12:08
[2024-08-08] MEDS: ERTAPENEM SOD INJ 1 GM in SODIUM CHL 0.9% 50 ML IV ONE (16:31)
[2024-08-09] VITALS (8 sets, daily range): BP systolic 113–127; BP diastolic 45–73; PULSE 60–89; RESP 17–18; TEMP 97.9–99; O2SAT 94–100
[2024-08-09 06:41] LABS: Alanine Aminotransferase 10 U/L (7-40); Alkaline Phosphatase 87 U/L (46-116); Anion Gap 8 (5-15); Aspartate Aminotransferase 23 U/L (13-40); Basophils # (auto) 0 10 ^3/uL (0-0.2); Basophils % (auto) 0.2 % (0.0-2.0); Carbon Dioxide 23 mmol/L (20-31); Eosinophils # (auto) 0.1 10 ^3/uL (0-0.8); Hemoglobin 7.6 g/dL (12.2-16.2); Monocytes # (auto) 0.6 10 ^3/uL (0-1.3); Potassium 3.7 mmol/L (3.5-5.1); Sodium 144 mmol/L (136-145)
[2024-08-09 06:42] LABS: Albumin 2.7 g/dL (3.2-4.8); Bilirubin, Total 0.2 mg/dL (0.2-1.0); Blood Urea Nitrogen 6 mg/dL (9-23); Calcium 8.3 mg/dL (8.7-10.4); Chloride 113 mmol/L (98-107); Glucose 72 mg/dL (74-106); Total Protein 5.2 g/dL (5.7-8.2)
[2024-08-09 06:43] LABS: Eosinophils % (auto) 1.1 % (0.0-7.0); Lymphocytes # (auto) 1.1 10 ^3/uL (0.4-5.4); Lymphocytes % (auto) 17.2 % (10.0-50.0); Mean Corpuscular Hemoglobin 19.5 pg (28.0-32.0); Mean Corpuscular Hgb Conc. 30.5 g/dL (32.0-36.0); Mean Corpuscular Volume 63.8 fL (80.0-100.0); Neutrophils # (auto) 4.5 10 ^3/uL (1.6-8.6); Neutrophils % (auto) 72.5 % (37.0-80.0); Red Blood Cells 3.91 10^6/uL (4.0-5.20); White Blood Cell 6.2 10^3/uL (4.4-10.8)
[2024-08-09 07:08] LABS: Platelet Count (auto) 501 10^3/uL (140-450); Red Cell Distribution Width 28.7 % (11.8-14.3)
--- NOTE | 2024-08-09 08:13 | DVHPN2 ---
Reviewed: Care Plan, H&P, Labs, Medications, Previous Orders, Radiology Changes from previous H/P or p: No Changes Objective Vitals Vital Signs Date Time Temp Pulse Resp B/P (MAP) Pulse Ox O2 Delivery O2 Flow Rate FiO2 08/09/24 05:00 97.9 64 18 113/45 (67) 96 97.9 08/08/24 20:00 Room Air* 0 21 Intake/Output Intake and Output 08/09/24 07:00 Intake Total 1010 ml Output Total 2275 ml Balance -1265 ml Intake Oral 960 ml IV Total 50 ml Output Urine Total 2275 ml # Bowel Movements 1 Medications Current Medications Medications Dose Ordered Sig/Chris Route Start Time Stop Time Status Last Admin Dose Admin Sodium Chloride 10 ml Q8HR IV 08/06/24 22:00 08/09/24 05:35 10 ML Docusate Sodium 100 mg BIDPRN PRN PO 08/06/24 18:15 Acetaminophen 650 mg Q6HP PRN PO 08/06/24 18:15 08/06/24 19:39 650 MG Acetaminophen/ Hydrocodone Bitart 1 tab Q4HP PRN PO 08/06/24 18:15 Hydromorphone HCl 0.5 mg Q4HP PRN IV 08/06/24 18:15 Ondansetron HCl 4 mg Q4HP PRN IV 08/06/24 18:15 Enoxaparin Sodium 40 mg DAILY SC 08/07/24 10:00 08/07/24 09:17 40 MG Ertapenem 1 gm/ Sodium Chloride 50 ml @ 100 mls/hr DAILY IV 08/09/24 10:00 Laboratory Results Laboratory Tests 08/09/24 05:06 Chemistry Test 08/09/24 05:06 Albumin 2.7 g/dL (3.2-4.8) L Calcium Level 8.3 mg/dL (8.7-10.4) L Total Protein 5.2 g/dL (5.7-8.2) L LFT Test 08/09/24 05:06 Alanine Aminotransferase (ALT) 10 U/L (7-40) Alkaline Phosphatase 87 U/L (46-116) Aspartate Amino Transferase (AST) 23 U/L (13-40) Total Bilirubin 0.2 mg/dL (0.2-1.0) Urinalysis Test 08/06/24 14:55 Urine Color Dark yellow (Yellow) Urine Clarity Turbid (Clear) H Urine pH 8.0 (5.0-9.0) Urine Specific [place] 1.019 (1.001-1.035) Urine Protein 1+ (Negative) H Urine Ketones Negative (Negative) Urine Blood Negative /uL (Negative) Urine Nitrite 2+ (Negative) H Urine Bilirubin Negative (Negative) Urine Urobilinogen 2 mg/dL (Negative) H Urine Leukocyte Esterase 3+ /uL (Negative) Urine RBC 8 /hpf (0 - 4) Urine Microscopic WBC 58 /HPF (0-5) H Urine Squamous Epithelial Cells Few /hpf (<5) Urine Bacteria None seen /hpf (None Seen) Urine Mucus Few (None Seen) Urine Glucose Normal mg/dL (Normal) Microbiology Microbiology Date/Time Source Procedure Growth Status 08/07/24 06:30 Stool Clostridium difficile Toxin Assay - Final Complete 08/06/24 14:55 Voided Urine Urine Culture - Final Escherichia coli - ESBL Complete Labs and/or images reviewed: Labs reviewed by me, Image(s) reviewed by me Assessment/Plan Assessment/Plan 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 Wilkins possible malignancy: Consult for surgeon , biopsy result pending Gastritis by EGD by Dr. Wilkins, biopsy result pending Acute urinary tract infection: Urine cultures growing Gram-negative rods, continue Rocephin History of anemia History of multiple blood transfusions Anemia hemoglobin 7.7: Will watch and transfuse if it goes below 7.0, Plan discussed with: Patient My Orders Orders - SHAWANDA TRAN MD Procedure Category Date Status Time Ertapenem Sod Inj PHA 08/09/24 In Process (Invanz) 10:00 Date of Service: Aug 09, 2024 Billing Provider: SHAWANDA TRAN MD Common Visit Codes: [id number] INP/OBS CARE(HIGH) SHAWANDA TRAN MD Aug 09, 2024 08:13
--- NOTE | 2024-08-09 10:02 | DVHPN2 ---
Progress Note Date Seen: Aug 09, 2024 Resident Creating Document: IDRIS DRMUMOND RESIDENT Medical Necessity Reason Pt with a Central, PICC or Fol: No Subjective Review of Systems Patient seen and examined at bedside Denies any nausea or vomiting Last bowel movement was last night, continues to have soft bowel movement Denies any blood in stool Objective vital signs Vital Sign Date Time Temp Pulse Resp B/P (MAP) Pulse Ox O2 Delivery O2 Flow Rate FiO2 08/09/24 08:51 98.9 89 17 119/73 (88) 99 98.9 08/08/24 20:00 Room Air* 0 21 Total Intake and Output 08/08/24 08/08/24 08/09/24 15:00 23:00 07:00 Intake Total 290 ml 720 ml Output Total 525 ml 1750 ml Balance -235 ml -1030 ml medications Current Medications Medications Dose Ordered Sig/Chris Route Start Time Stop Time Status Last Admin Dose Admin Sodium Chloride 10 ml Q8HR IV 08/06/24 22:00 08/09/24 05:35 10 ML Docusate Sodium 100 mg BIDPRN PRN PO 08/06/24 18:15 Acetaminophen 650 mg Q6HP PRN PO 08/06/24 18:15 08/06/24 19:39 650 MG Acetaminophen/ Hydrocodone Bitart 1 tab Q4HP PRN PO 08/06/24 18:15 Hydromorphone HCl 0.5 mg Q4HP PRN IV 08/06/24 18:15 Ondansetron HCl 4 mg Q4HP PRN IV 08/06/24 18:15 Ertapenem 1 gm/ Sodium Chloride 50 ml @ 100 mls/hr DAILY IV 08/09/24 10:00 Examination General Appearance: Cooperative. Well developed. NAD Head Exam: Normal inspection Neck Exam: Normal inspection. Non-tender. Normal alignment Pulmonary/Respiratory: Chest non-tender. Clear bilateral breath sounds, no crackles, no wheezing. Cardiovascular/Chest: Regular rate and rhythm. No murmurs. No JVD. Abdominal Exam: Normal bowel sounds. Soft. normal abdomen, no visible veins, Nontender. No hepatospenomegaly. No masses Ankle Exam: Negative ankle edema Neuro/Mental Status: A&O x4. Coherent. Thoughts/Psych: Normal thought pattern. Appropriate mood and affect. Good judgement and insight Skin Exam: Normal inspection. Normal color. Warm. Dry laboratory and microbiology Laboratory Tests 08/09/24 05:06 Test 08/09/24 05:06 Range/Units Serum Glucose 72 L 74-106 mg/dL Microbiology Date/Time Source Procedure Growth Status 08/07/24 06:30 Stool Clostridium difficile Toxin Assay - Final Complete 08/06/24 14:55 Voided Urine Urine Culture - Final Escherichia coli - ESBL Complete Labs and/or images reviewed: Labs reviewed by me, Image(s) reviewed by me Problem List/Assessment/Plan Problem List/Assessment/Plan Anemia due to GI bleeding Large obstructive mass lesion of the hepatic flexure highly consistent with malignancy of the colon Internal hemorrhoids Gastritis Acute complicated UTI, ESBL+ Plan: Await the biopsy results Surgical consult saima On INVANZ Preop CEA Will recommend a dedicated CT scan of the abdomen and pelvis with oral and IV contrast even though one has been done in May Follow-up surveillance for colon cancer screening after surgery Surgery on board Plan discussed with Dr. Figueroa Plan discussed with: Patient, Other (RN) IDRIS DRUMMOND RESIDENT Aug 09, 2024 10:02
[2024-08-09] MEDS: ERTAPENEM SOD INJ 1 GM in SODIUM CHL 0.9% 50 ML IV SCH (10:43)
--- NOTE | 2024-08-09 12:11 | DVH ---
Exam: CT CT CHEST/AB/PL W CON- IV ONLY History: colonic mass assess for mets COMPARISON: CT CT CHEST/AB/PL W CON- IV ONLY on DOS: 06/18/24 Technique: Multidetector spiral CT of the abdomen and pelvis was performed from lung bases to pubic s ymphysis. Intravenous contrast was administered during this examination. Portal venous imaging was o btained. Axial, coronal and sagittal multiplanar reformats were performed by the technologist on a [employer] workstation. Radiation Dose : 1. Abdomen/Pelvis: CTDIvol 6.11mGy, DLP 456.14 mGy*cm. Findings: Lung Bases: No acute or significant lung base finding. Normal heart size. No pleural or pericardial effusion. Liver: Hepatic steatosis. Gallbladder and Biliary Tree: Unremarkable Spleen: Unremarkable Pancreas: The pancreas is normal in appearance without focal lesions or abnormal enhancement. Adrenal Glands: Unremarkable Kidneys: No hydronephrosis. Bladder: Bladder is decompressed with a [place] catheter and cannot be adequately assessed. Bowel: The stomach is grossly normal in appearance. Severe bowel wall thickening of the hepatic flexu re/ proximal transverse colon measuring approximately 7.5 cm. The appendix is not visualized; however , no secondary findings of acute appendicitis identified. Ascites: Absent Lymphadenopathy: Few prominent lymph nodes in the right retroperitoneum are present measuring up to 1 .8 cm. Abdominal Wall and Mesentery: Infiltrative changes in the right lower quadrant mesentery without disc rete soft-tissue nodules. Vasculature: The visualized abdominal aorta is normal in size and caliber. Abdominal and pelvic vess els demonstrate normal enhancement. Pelvic Organs: Unremarkable Musculoskeletal: No aggressive focal bony lesions, acute fractures or dislocation. Multilevel thoraco lumbar spinal fixation hardware. IMPRESSION: Findings are suspicious for colon neoplasm measuring approximately 7.5 cm in the region of the hepati c flexure / proximal transverse colon. There are diffuse infiltrative changes in the right lower quadrant mesentery without discrete omental soft-tissue nodules. Few prominent lymph nodes in the right retroperitoneum are present measuring up to 1.8 cm. Otherwise, there are no findings of metastatic disease in the chest, abdomen or pelvis. Radiation optimization: All CT scans at this facility use at least one of these dose optimization [place] hniques: automated exposure control mA and/or kV adjustment per patient size (includes targeted exam s where dose is matched to clinical indication) or iterative reconstruction.
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
[2024-08-10] VITALS (8 sets, daily range): BP systolic 101–127; BP diastolic 53–79; PULSE 72–103; RESP 17–70; TEMP 98–99.2; O2SAT 97–99
[2024-08-10 06:50] LABS: Alanine Aminotransferase 13 U/L (7-40); Alkaline Phosphatase 102 U/L (46-116); Anion Gap 9 (5-15); Aspartate Aminotransferase 22 U/L (13-40); BUN/Creatinine Ratio 12.5 (10.0-20.0); Bilirubin, Total 0.3 mg/dL (0.2-1.0); Blood Urea Nitrogen < 5 mg/dL (9-23); Calcium 8.4 mg/dL (8.7-10.4); Carbon Dioxide 25 mmol/L (20-31); Chloride 109 mmol/L (98-107); Glucose 74 mg/dL (74-106); Potassium 3.3 mmol/L (3.5-5.1); Sodium 143 mmol/L (136-145); Total Protein 5.6 g/dL (5.7-8.2)
[2024-08-10 07:01] LABS: Basophils # (auto) 0 10 ^3/uL (0-0.2); Basophils % (auto) 0.2 % (0.0-2.0); Eosinophils # (auto) 0.1 10 ^3/uL (0-0.8); Hematocrit 25.8 % (36.0-46.0); Mean Corpuscular Hemoglobin 20.1 pg (28.0-32.0); Mean Corpuscular Volume 63.7 fL (80.0-100.0); Monocytes # (auto) 0.5 10 ^3/uL (0-1.3); Red Blood Cells 4.05 10^6/uL (4.0-5.20)
[2024-08-10 07:04] LABS: Eosinophils % (auto) 1.4 % (0.0-7.0); Hemoglobin 8.1 g/dL (12.2-16.2); Lymphocytes # (auto) 1.1 10 ^3/uL (0.4-5.4); Lymphocytes % (auto) 18.5 % (10.0-50.0); Mean Corpuscular Hgb Conc. 31.5 g/dL (32.0-36.0); Monocytes % (auto) 8.1 % (0.0-12.0); Neutrophils # (auto) 4.3 10 ^3/uL (1.6-8.6); Neutrophils % (auto) 71.8 % (37.0-80.0); Platelet Count (auto) 498 10^3/uL (140-450); Red Cell Distribution Width 28.5 % (11.8-14.3)
[2024-08-10] MEDS: GOLYTELY 4L KIT PO ONE (08:27)
--- NOTE | 2024-08-10 08:27 | DVHPN2 ---
Reviewed: Care Plan, H&P, Labs, Medications, Previous Orders, Radiology Changes from previous H/P or p: No Changes Objective Vitals Vital Signs Date Time Temp Pulse Resp B/P (MAP) Pulse Ox O2 Delivery O2 Flow Rate FiO2 08/10/24 05:00 98.6 72 19 101/53 (69) 98 98.6 08/09/24 20:00 Room Air* 0 21 Intake/Output Intake and Output 08/10/24 07:00 Intake Total 1050 ml Output Total 3700 ml Balance -2650 ml Intake Oral 600 ml IV Total 50 ml Tube Feeding 400 ml Output Urine Total 3700 ml # Voids 1 Medications Current Medications Medications Dose Ordered Sig/Chris Route Start Time Stop Time Status Last Admin Dose Admin Sodium Chloride 10 ml Q8HR IV 08/06/24 22:00 08/10/24 06:06 10 ML Docusate Sodium 100 mg BIDPRN PRN PO 08/06/24 18:15 Acetaminophen 650 mg Q6HP PRN PO 08/06/24 18:15 08/06/24 19:39 650 MG Acetaminophen/ Hydrocodone Bitart 1 tab Q4HP PRN PO 08/06/24 18:15 Hydromorphone HCl 0.5 mg Q4HP PRN IV 08/06/24 18:15 Ondansetron HCl 4 mg Q4HP PRN IV 08/06/24 18:15 Ertapenem 1 gm/ Sodium Chloride 50 ml @ 100 mls/hr DAILY IV 08/09/24 10:00 08/09/24 10:43 100 MLS/HR Laboratory Results Laboratory Tests 08/10/24 04:37 Chemistry Test 08/10/24 04:37 Albumin 3.0 g/dL (3.2-4.8) L Calcium Level 8.4 mg/dL (8.7-10.4) L Total Protein 5.6 g/dL (5.7-8.2) L LFT Test 08/10/24 04:37 Alanine Aminotransferase (ALT) 13 U/L (7-40) Alkaline Phosphatase 102 U/L (46-116) Aspartate Amino Transferase (AST) 22 U/L (13-40) Total Bilirubin 0.3 mg/dL (0.2-1.0) Urinalysis Test 08/06/24 14:55 Urine Color Dark yellow (Yellow) Urine Clarity Turbid (Clear) H Urine pH 8.0 (5.0-9.0) Urine Specific [place] 1.019 (1.001-1.035) Urine Protein 1+ (Negative) H Urine Ketones Negative (Negative) Urine Blood Negative /uL (Negative) Urine Nitrite 2+ (Negative) H Urine Bilirubin Negative (Negative) Urine Urobilinogen 2 mg/dL (Negative) H Urine Leukocyte Esterase 3+ /uL (Negative) Urine RBC 8 /hpf (0 - 4) Urine Microscopic WBC 58 /HPF (0-5) H Urine Squamous Epithelial Cells Few /hpf (<5) Urine Bacteria None seen /hpf (None Seen) Urine Mucus Few (None Seen) Urine Glucose Normal mg/dL (Normal) Microbiology Microbiology Date/Time Source Procedure Growth Status 08/07/24 06:30 Stool Clostridium difficile Toxin Assay - Final Complete 08/06/24 14:55 Voided Urine Urine Culture - Final Escherichia coli - ESBL Complete Labs and/or images reviewed: Labs reviewed by me, Image(s) reviewed by me Assessment/Plan Assessment/Plan 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 Wilkins possible malignancy: Consult for surgeon appreciated, Dr. Hicks planning for right colectomy, biopsy result pending Gastritis by EGD by Dr. Wilkins, biopsy result pending Acute urinary tract infection: Urine cultures growing Gram-negative rods, continue Rocephin History of anemia History of multiple blood transfusions Anemia hemoglobin 7.7: Will watch and transfuse if it goes below 7.0, Plan discussed with: Patient Date of Service: Aug 10, 2024 Billing Provider: SHAWANDA TRAN MD Common Visit Codes: [id number] INP/OBS CARE(HIGH) SHAWANDA TRAN MD Aug 10, 2024 08:27
--- NOTE | 2024-08-10 14:27 | DVHPN2 ---
Progress Note Date Seen: Aug 10, 2024 Resident Creating Document: IDRIS DRUMMOND RESIDENT Medical Necessity Reason Pt with a Central, PICC or Fol: No Subjective Review of Systems Patient seen and examined at bedside Denies any nausea or vomiting Last bowel movement was yesterday, continues to have soft bowel movement Denies any blood in stool Objective vital signs Vital Sign Date Time Temp Pulse Resp B/P (MAP) Pulse Ox O2 Delivery O2 Flow Rate FiO2 08/10/24 12:21 99.2 95 20 116/73 (87) 99 99.2 08/10/24 08:00 Room Air* 0 21 Total Intake and Output 08/09/24 08/09/24 08/10/24 15:00 23:00 07:00 Intake Total 50 ml 600 ml 400 ml Output Total 2950 ml 750 ml Balance 50 ml -2350 ml -350 ml medications Current Medications Medications Dose Ordered Sig/Chris Route Start Time Stop Time Status Last Admin Dose Admin Sodium Chloride 10 ml Q8HR IV 08/06/24 22:00 08/10/24 06:06 10 ML Docusate Sodium 100 mg BIDPRN PRN PO 08/06/24 18:15 Acetaminophen 650 mg Q6HP PRN PO 08/06/24 18:15 08/06/24 19:39 650 MG Acetaminophen/ Hydrocodone Bitart 1 tab Q4HP PRN PO 08/06/24 18:15 Hydromorphone HCl 0.5 mg Q4HP PRN IV 08/06/24 18:15 Ondansetron HCl 4 mg Q4HP PRN IV 08/06/24 18:15 Ertapenem 1 gm/ Sodium Chloride 50 ml @ 100 mls/hr DAILY IV 08/09/24 10:00 08/10/24 10:12 100 MLS/HR Examination General Appearance: Cooperative. Well developed. NAD Head Exam: Normal inspection Neck Exam: Normal inspection. Non-tender. Normal alignment Pulmonary/Respiratory: Chest non-tender. Clear bilateral breath sounds, no crackles, no wheezing. Cardiovascular/Chest: Regular rate and rhythm. No murmurs. No JVD. Abdominal Exam: Normal bowel sounds. Soft. normal abdomen, no visible veins, Nontender. No hepatospenomegaly. No masses Ankle Exam: Negative ankle edema Neuro/Mental Status: A&O x4. Coherent. Thoughts/Psych: Normal thought pattern. Appropriate mood and affect. Good judgement and insight Skin Exam: Normal inspection. Normal color. Warm. Dry laboratory and microbiology Laboratory Tests 08/10/24 04:37 Test 08/10/24 04:37 Range/Units Serum Glucose 74 74-106 mg/dL Microbiology Date/Time Source Procedure Growth Status 08/07/24 06:30 Stool Clostridium difficile Toxin Assay - Final Complete 08/06/24 14:55 Voided Urine Urine Culture - Final Escherichia coli - ESBL Complete Labs and/or images reviewed: Labs reviewed by me, Image(s) reviewed by me Problem List/Assessment/Plan Problem List/Assessment/Plan Anemia due to GI bleeding Large obstructive mass lesion of the hepatic flexure highly consistent with malignancy of the colon Internal hemorrhoids Gastritis Acute complicated UTI, ESBL+ Plan: Await the biopsy results Surgical consult saima On INVANZ Preop CEA Will recommend a dedicated CT scan of the abdomen and pelvis with oral and IV contrast even though one has been done in May Follow-up surveillance for colon cancer screening after surgery Surgery on board; scheduled for laparoscopic right colectomy possible open surgery Plan discussed with Dr. Figueroa Plan discussed with: Patient, Other (RN) Dietary Evaluation Review Comments: when medically feasible to advance to diet, Offer her a Regular with PO Ensure Enlive BID for nutrition supplement Expected Outcomes/Goals: prevent wt loss and improve nutrition status IDRIS DRUMMOND RESIDENT Aug 10, 2024 14:27
[2024-08-11] VITALS (9 sets, daily range): BP systolic 104–119; BP diastolic 56–76; PULSE 91–115; RESP 15–19; TEMP 97.3–98.4; O2SAT 9–97
--- NOTE | 2024-08-11 07:43 | DVHPN2 ---
Reviewed: Care Plan, H&P, Labs, Medications, Previous Orders, Radiology Changes from previous H/P or p: No Changes Objective Vitals Vital Signs Date Time Temp Pulse Resp B/P (MAP) Pulse Ox O2 Delivery O2 Flow Rate FiO2 08/11/24 05:00 98.3 100 19 111/68 (82) 96 98.3 08/10/24 20:00 Room Air* 0 21 Intake/Output Intake and Output 08/11/24 07:00 Intake Total 50 ml Output Total 957 ml Balance -907 ml Intake Oral 0 ml IV Total 50 ml Output Urine Total 950 ml Stool Total 7 ml Medications Current Medications Medications Dose Ordered Sig/Chris Route Start Time Stop Time Status Last Admin Dose Admin Sodium Chloride 10 ml Q8HR IV 08/06/24 22:00 08/11/24 06:13 10 ML Docusate Sodium 100 mg BIDPRN PRN PO 08/06/24 18:15 Acetaminophen 650 mg Q6HP PRN PO 08/06/24 18:15 08/06/24 19:39 650 MG Acetaminophen/ Hydrocodone Bitart 1 tab Q4HP PRN PO 08/06/24 18:15 Hydromorphone HCl 0.5 mg Q4HP PRN IV 08/06/24 18:15 Ondansetron HCl 4 mg Q4HP PRN IV 08/06/24 18:15 Ertapenem 1 gm/ Sodium Chloride 50 ml @ 100 mls/hr DAILY IV 08/09/24 10:00 08/10/24 10:12 100 MLS/HR Laboratory Results Laboratory Tests 08/10/24 04:37 Urinalysis Test 08/06/24 14:55 Urine Color Dark yellow (Yellow) Urine Clarity Turbid (Clear) H Urine pH 8.0 (5.0-9.0) Urine Specific [place] 1.019 (1.001-1.035) Urine Protein 1+ (Negative) H Urine Ketones Negative (Negative) Urine Blood Negative /uL (Negative) Urine Nitrite 2+ (Negative) H Urine Bilirubin Negative (Negative) Urine Urobilinogen 2 mg/dL (Negative) H Urine Leukocyte Esterase 3+ /uL (Negative) Urine RBC 8 /hpf (0 - 4) Urine Microscopic WBC 58 /HPF (0-5) H Urine Squamous Epithelial Cells Few /hpf (<5) Urine Bacteria None seen /hpf (None Seen) Urine Mucus Few (None Seen) Urine Glucose Normal mg/dL (Normal) Microbiology Microbiology Date/Time Source Procedure Growth Status 08/07/24 06:30 Stool Clostridium difficile Toxin Assay - Final Complete 08/06/24 14:55 Voided Urine Urine Culture - Final Escherichia coli - ESBL Complete Labs and/or images reviewed: Labs reviewed by me, Image(s) reviewed by me Assessment/Plan Assessment/Plan 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 Wilkins possible malignancy: Consult for surgeon appreciated, Dr. Hicks planning for right colectomy, biopsy result pending Gastritis by EGD by Dr. Wilkins, biopsy result pending Acute urinary tract infection: Urine cultures growing Gram-negative rods, continue Rocephin History of anemia History of multiple blood transfusions Anemia hemoglobin 7.7: Will watch and transfuse if it goes below 7.0, Plan discussed with: Patient Date of Service: Aug 11, 2024 Billing Provider: SHAWANDA TRAN MD Common Visit Codes: [id number] INP/OBS CARE(HIGH) SAHWANDA TRAN MD Aug 11, 2024 07:43
[2024-08-11 08:25] LABS: Basophils # (auto) 0 10 ^3/uL (0-0.2); Basophils % (auto) 0.2 % (0.0-2.0); Eosinophils # (auto) 0.1 10 ^3/uL (0-0.8); Hemoglobin 7.6 g/dL (12.2-16.2); Monocytes # (auto) 0.5 10 ^3/uL (0-1.3)
[2024-08-11 08:28] LABS: Eosinophils % (auto) 1.4 % (0.0-7.0); Hematocrit 24.7 % (36.0-46.0); Lymphocytes % (auto) 16.5 % (10.0-50.0); Mean Corpuscular Hemoglobin 19.6 pg (28.0-32.0); Mean Corpuscular Hgb Conc. 30.8 g/dL (32.0-36.0); Mean Corpuscular Volume 63.7 fL (80.0-100.0); Monocytes % (auto) 8.4 % (0.0-12.0); Neutrophils # (auto) 4.4 10 ^3/uL (1.6-8.6); Neutrophils % (auto) 73.5 % (37.0-80.0); Platelet Count (auto) 505 10^3/uL (140-450); Red Blood Cells 3.89 10^6/uL (4.0-5.20); Red Cell Distribution Width 28.3 % (11.8-14.3)
[2024-08-11 08:43] LABS: Alanine Aminotransferase 10 U/L (7-40); Alkaline Phosphatase 91 U/L (46-116); Anion Gap 14 (5-15); Aspartate Aminotransferase 22 U/L (13-40); Sodium 143 mmol/L (136-145)
[2024-08-11 08:44] LABS: Bilirubin, Total 0.3 mg/dL (0.2-1.0)
[2024-08-11 08:47] LABS: Albumin 2.9 g/dL (3.2-4.8); BUN/Creatinine Ratio 15.6 (10.0-20.0); Blood Urea Nitrogen < 5 mg/dL (9-23); Calcium 8.3 mg/dL (8.7-10.4); Carbon Dioxide 20 mmol/L (20-31); Chloride 109 mmol/L (98-107); Glucose 56 mg/dL (74-106); Potassium 3.3 mmol/L (3.5-5.1); Total Protein 5.6 g/dL (5.7-8.2)
--- NOTE | 2024-08-11 12:17 | DVHPN2 ---
Progress Note Date Seen: Aug 11, 2024 Resident Creating Document: IDRIS DRUMMOND RESIDENT Medical Necessity Reason Pt with a Central, PICC or Fol: No Subjective Review of Systems Denies any nausea or vomiting Last bowel movement was today, soft Currently on liquid diet, reports good appetite Scheduled for surgery tomorrow Objective vital signs Vital Sign Date Time Temp Pulse Resp B/P (MAP) Pulse Ox O2 Delivery O2 Flow Rate FiO2 08/11/24 09:00 97.3 95 18 117/72 (87) 96 97.3 08/11/24 08:00 Room Air* 0 21 Total Intake and Output 08/10/24 08/10/24 08/11/24 15:00 23:00 07:00 Intake Total 50 ml 0 ml 0 ml Output Total 605 ml 352 ml Balance 50 ml -605 ml -352 ml medications Current Medications Medications Dose Ordered Sig/Chris Route Start Time Stop Time Status Last Admin Dose Admin Sodium Chloride 10 ml Q8HR IV 08/06/24 22:00 08/11/24 06:13 10 ML Docusate Sodium 100 mg BIDPRN PRN PO 08/06/24 18:15 Acetaminophen 650 mg Q6HP PRN PO 08/06/24 18:15 08/06/24 19:39 650 MG Acetaminophen/ Hydrocodone Bitart 1 tab Q4HP PRN PO 08/06/24 18:15 Hydromorphone HCl 0.5 mg Q4HP PRN IV 08/06/24 18:15 Ondansetron HCl 4 mg Q4HP PRN IV 08/06/24 18:15 Ertapenem 1 gm/ Sodium Chloride 50 ml @ 100 mls/hr DAILY IV 08/09/24 10:00 08/11/24 09:48 100 MLS/HR Examination General Appearance: Cooperative. Well developed. NAD Head Exam: Normal inspection Neck Exam: Normal inspection. Non-tender. Normal alignment Pulmonary/Respiratory: Chest non-tender. Clear bilateral breath sounds, no crackles, no wheezing. Cardiovascular/Chest: Regular rate and rhythm. No murmurs. No JVD. Abdominal Exam: Normal bowel sounds. Soft. normal abdomen, no visible veins, Nontender. No hepatospenomegaly. No masses Ankle Exam: Negative ankle edema Neuro/Mental Status: A&O x4. Coherent. Thoughts/Psych: Normal thought pattern. Appropriate mood and affect. Good judgement and insight Skin Exam: Normal inspection. Normal color. Warm. Dry laboratory and microbiology Laboratory Tests 08/11/24 07:38 Test 08/11/24 07:38 Range/Units Serum Glucose 56 L 74-106 mg/dL Microbiology Date/Time Source Procedure Growth Status 08/07/24 06:30 Stool Clostridium difficile Toxin Assay - Final Complete 08/06/24 14:55 Voided Urine Urine Culture - Final Escherichia coli - ESBL Complete Labs and/or images reviewed: Labs reviewed by me, Image(s) reviewed by me Problem List/Assessment/Plan Problem List/Assessment/Plan Anemia due to GI bleeding Large obstructive mass lesion of the hepatic flexure highly consistent with malignancy of the colon Internal hemorrhoids Gastritis Acute complicated UTI, ESBL+ Plan: Await the biopsy results Surgical consult saima On INVANZ Preop CEA Will recommend a dedicated CT scan of the abdomen and pelvis with oral and IV contrast even though one has been done in May Follow-up surveillance for colon cancer screening after surgery Surgery on board; scheduled for laparoscopic right colectomy possible open surgery Plan discussed with Dr. Figueroa Plan discussed with: Patient, Other (RN) Dietary Evaluation Review Comments: when medically feasible to advance to diet, Offer her a Regular with PO Ensure Enlive BID for nutrition supplement Expected Outcomes/Goals: prevent wt loss and improve nutrition status IDRIS DRUMMOND RESIDENT Aug 11, 2024 12:17
[2024-08-12 05:00] VITALS: BP 122/66; PULSE 103; RESP 17; TEMP 98.4; O2SAT 98
[2024-08-12] MEDS ORDERED: SODIUM CHLORIDE LOCK 50 ML ONE (06:50)
[2024-08-12] MEDS ORDERED: MEPERIDINE HCL (50 MG/ML) 1 ML VIAL ONE (06:50)
[2024-08-12] MEDS ORDERED: LIDOCAINE HCL 2% TOP JELLY 5ML TOP ONE (06:50)
[2024-08-12] MEDS ORDERED: ONDANSETRON HCL 4 MG/2 ML VIAL ONE (06:50)
[2024-08-12] MEDS ORDERED: HYDROCORTISONE SOD SUCC 100 MG/2ML INJ VIAL ONE (06:50)
[2024-08-12] MEDS ORDERED: ETOMIDATE (2MG/ML) 20ML VIAL IV ONE (06:50)
[2024-08-12] MEDS ORDERED: fentaNYL CITRATE 100 MCG/2 ML VL ONE (06:50)
[2024-08-12] MEDS ORDERED: LIDOCAINE 1% INJ PF 5ML AMP ONE (06:50)
[2024-08-12] MEDS ORDERED: KETAMINE 50mg/ML 10ml Vial 10 ML ONE (06:50)
[2024-08-12] MEDS ORDERED: ROCURONIUM 10MG/ML 10ML VIAL IV ONE (06:50)
[2024-08-12] MEDS ORDERED: MIDAZOLAM HCL 2MG/2ML 2ml VIAL (1mg/ml) ONE (06:50)
[2024-08-12 07:15] LABS: Basophils # (auto) 0 10 ^3/uL (0-0.2); Eosinophils # (auto) 0.1 10 ^3/uL (0-0.8); Hemoglobin 7.9 g/dL (12.2-16.2); Mean Corpuscular Volume 64.8 fL (80.0-100.0); Monocytes # (auto) 0.5 10 ^3/uL (0-1.3); White Blood Cell 6.2 10^3/uL (4.4-10.8)
[2024-08-12 07:17] LABS: Basophils % (auto) 0.3 % (0.0-2.0); Eosinophils % (auto) 1.9 % (0.0-7.0); Hematocrit 25.5 % (36.0-46.0); Lymphocytes # (auto) 0.9 10 ^3/uL (0.4-5.4); Lymphocytes % (auto) 14.4 % (10.0-50.0); Mean Corpuscular Hgb Conc. 30.8 g/dL (32.0-36.0); Monocytes % (auto) 8.5 % (0.0-12.0); Neutrophils # (auto) 4.7 10 ^3/uL (1.6-8.6); Neutrophils % (auto) 74.9 % (37.0-80.0); Nucleated Red Blood Cells % 0.1 %; Platelet Count (auto) 443 10^3/uL (140-450); Red Blood Cells 3.94 10^6/uL (4.0-5.20)
[2024-08-12 07:24] LABS: Alanine Aminotransferase 11 U/L (7-40); Alkaline Phosphatase 87 U/L (46-116); Anion Gap 11 (5-15); Sodium 142 mmol/L (136-145)
[2024-08-12 07:25] LABS: Aspartate Aminotransferase 21 U/L (13-40)
[2024-08-12 07:26] LABS: Albumin 2.9 g/dL (3.2-4.8); BUN/Creatinine Ratio 13.5 (10.0-20.0); Bilirubin, Total 0.3 mg/dL (0.2-1.0); Blood Urea Nitrogen < 5 mg/dL (9-23); Calcium 8.2 mg/dL (8.7-10.4); Carbon Dioxide 19 mmol/L (20-31); Chloride 112 mmol/L (98-107); Glucose 71 mg/dL (74-106); Potassium 3.4 mmol/L (3.5-5.1); Total Protein 5.6 g/dL (5.7-8.2)
[2024-08-12 07:27] LABS: INR 1.13 (0.9-1.15); Partial Thromboplastin Time 25.1 SEC (24.5-34.5); Prothrombin Time 11.8 sec (9.3-11.8)
[2024-08-12 07:30] LABS: Red Cell Distribution Width 28.2 % (11.8-14.3)
[2024-08-12] MEDS: ceFAZolin 2 GM/D5W100ml 100 ML IV ONE (07:38)
[2024-08-12] MEDS: LIDOCAINE W/ EPINEPHRINE 1% 20ML VIAL ONE (07:46)
--- NOTE | 2024-08-12 07:58 | DVHPN2 ---
Reviewed: Care Plan, H&P, Labs, Medications, Previous Orders, Radiology Changes from previous H/P or p: No Changes Objective Vitals Vital Signs Date Time Temp Pulse Resp B/P (MAP) Pulse Ox O2 Delivery O2 Flow Rate FiO2 08/12/24 05:00 98.4 103 17 122/66 (84) 98 98.4 08/11/24 20:00 Room Air* 0 21 Intake/Output Intake and Output 08/12/24 07:00 Intake Total 550 ml Output Total 1265 ml Balance -715 ml Intake Oral 500 ml IV Total 50 ml Output Urine Total 1265 ml # Voids 2 # Bowel Movements 2 Medications Current Medications Medications Dose Ordered Sig/Chris Route Start Time Stop Time Status Last Admin Dose Admin Sodium Chloride 10 ml Q8HR IV 08/06/24 22:00 08/12/24 06:01 10 ML Docusate Sodium 100 mg BIDPRN PRN PO 08/06/24 18:15 Acetaminophen 650 mg Q6HP PRN PO 08/06/24 18:15 08/06/24 19:39 650 MG Acetaminophen/ Hydrocodone Bitart 1 tab Q4HP PRN PO 08/06/24 18:15 Hydromorphone HCl 0.5 mg Q4HP PRN IV 08/06/24 18:15 Ondansetron HCl 4 mg Q4HP PRN IV 08/06/24 18:15 Ertapenem 1 gm/ Sodium Chloride 50 ml @ 100 mls/hr DAILY IV 08/09/24 10:00 08/11/24 09:48 100 MLS/HR Laboratory Results Laboratory Tests 08/12/24 06:43 Chemistry Test 08/12/24 06:43 Albumin 2.9 g/dL (3.2-4.8) L Calcium Level 8.2 mg/dL (8.7-10.4) L Total Protein 5.6 g/dL (5.7-8.2) L Coagulation Test 08/12/24 06:43 Prothrombin Time 11.8 sec (9.3-11.8) Prothrombin Time INR 1.13 (0.9-1.15) Activated Partial Thromboplast Time 25.1 SEC (24.5-34.5) LFT Test 08/12/24 06:43 Alanine Aminotransferase (ALT) 11 U/L (7-40) Alkaline Phosphatase 87 U/L (46-116) Aspartate Amino Transferase (AST) 21 U/L (13-40) Total Bilirubin 0.3 mg/dL (0.2-1.0) Urinalysis Test 08/06/24 14:55 Urine Color Dark yellow (Yellow) Urine Clarity Turbid (Clear) H Urine pH 8.0 (5.0-9.0) Urine Specific [place] 1.019 (1.001-1.035) Urine Protein 1+ (Negative) H Urine Ketones Negative (Negative) Urine Blood Negative /uL (Negative) Urine Nitrite 2+ (Negative) H Urine Bilirubin Negative (Negative) Urine Urobilinogen 2 mg/dL (Negative) H Urine Leukocyte Esterase 3+ /uL (Negative) Urine RBC 8 /hpf (0 - 4) Urine Microscopic WBC 58 /HPF (0-5) H Urine Squamous Epithelial Cells Few /hpf (<5) Urine Bacteria None seen /hpf (None Seen) Urine Mucus Few (None Seen) Urine Glucose Normal mg/dL (Normal) Microbiology Microbiology Date/Time Source Procedure Growth Status 08/07/24 06:30 Stool Clostridium difficile Toxin Assay - Final Complete 08/06/24 14:55 Voided Urine Urine Culture - Final Escherichia coli - ESBL Complete Labs and/or images reviewed: Labs reviewed by me, Image(s) reviewed by me Assessment/Plan Assessment/Plan 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 Wilkins possible malignancy, biopsy result pending: Consult for surgeon appreciated, Dr. Hicks planning for right colectomy, Gastritis by EGD by Dr. Wilkins, biopsy result pending Acute urinary tract infection: Urine cultures growing Gram-negative rods, continue Rocephin History of anemia History of multiple blood transfusions Anemia hemoglobin 7.7: We will transfuse 1 unit RBC in anticipation of the major surgery Plan discussed with: Patient Date of Service: Aug 12, 2024 Billing Provider: SHAWANDA TRAN MD Common Visit Codes: [id number] INP/OBS CARE(HIGH) SHAWANDA TRAN MD Aug 12, 2024 07:58
[2024-08-12] MEDS ORDERED: fentaNYL CITRATE 100 MCG/2 ML VL IV PRN (08:45)
[2024-08-12] MEDS ORDERED: MORPHINE SULFATE 4 MG/ML SYR/VIAL IV PRN (08:45)
[2024-08-12] MEDS: METOCLOPRAMIDE HCL 5MG/ml INJ 2ml VIAL IV ONE (08:45)
[2024-08-12] MEDS ORDERED: HYDROmorphone HCL 2 MG/ML VL/or syr IV PRN ×2 (08:45)
[2024-08-12 09:30] VITALS: BP 113/70; PULSE 103; RESP 19; TEMP 98.2; O2SAT 100
[2024-08-12] MEDS ORDERED: MORPHINE SULFATE INJ 2 MG/ml SYRG IV PRN (09:30)
[2024-08-12] MEDS: metroNIDAZOLE 500MG/100ML 100 ML IV ONE (09:32)
[2024-08-12] MEDS ORDERED: GLYCOPYRROLATE 0.2 MG/ML 1ML VIAL ONE (10:40)
[2024-08-12] MEDS ORDERED: NEOSTIGMINE 1 MG/ML INJ (10mg/10ML VIAL) ONE (10:40)
--- NOTE | 2024-08-12 11:08 | DVHPN2 ---
Progress Note Date Seen: Aug 12, 2024 Resident Creating Document: IDRIS DRUMMOND RESIDENT Medical Necessity Reason Pt with a Central, PICC or Fol: No Subjective Review of Systems Patient is a 49-year-old female with past medical history of anemia and bladder injury, who came to the ER due to weakness and lightheadedness along with dyspnea on exertion. She was noted to have anemia and also confirmed having black stools. Patient was also hospitalized in May 2024 with a hemoglobin of 4.[address] scan at the time showed possible colitis with some thickening. Patient completed EGD and colonoscopy on 08/08/2024, colonoscopy showed large obstructive mass lesion of the hepatic flexure highly consistent with malignancy of the colon, multiple biopsies taken for the cold biopsy forceps and tattooing done. Surgery was also taken on board, patient is scheduled to undergo right hemicolectomy today on 08/14/2024. Objective vital signs Vital Sign Date Time Temp Pulse Resp B/P (MAP) Pulse Ox O2 Delivery O2 Flow Rate FiO2 08/12/24 09:30 98.2 103 19 113/70 (84) 100 98.2 08/11/24 20:00 Room Air* 0 21 Total Intake and Output 08/11/24 08/11/24 08/12/24 15:00 23:00 07:00 Intake Total 50 ml 0 ml 500 ml Output Total 440 ml 825 ml Balance 50 ml -440 ml -325 ml medications Current Medications Medications Dose Ordered Sig/Chris Route Start Time Stop Time Status Last Admin Dose Admin Sodium Chloride 10 ml Q8HR IV 08/06/24 22:00 08/12/24 06:01 10 ML Docusate Sodium 100 mg BIDPRN PRN PO 08/06/24 18:15 Acetaminophen 650 mg Q6HP PRN PO 08/06/24 18:15 08/06/24 19:39 650 MG Acetaminophen/ Hydrocodone Bitart 1 tab Q4HP PRN PO 08/06/24 18:15 Hydromorphone HCl 0.5 mg Q4HP PRN IV 08/06/24 18:15 Ondansetron HCl 4 mg Q4HP PRN IV 08/06/24 18:15 Ertapenem 1 gm/ Sodium Chloride 50 ml @ 100 mls/hr DAILY IV 08/09/24 10:00 08/11/24 09:48 100 MLS/HR Morphine Sulfate 2 mg Q4H PRN IV 08/12/24 08:45 08/12/24 12:46 Morphine Sulfate 1 mg Q30M PRN IV 08/12/24 09:30 08/12/24 11:31 Examination General Appearance: Cooperative. Well developed. NAD Head Exam: Normal inspection Neck Exam: Normal inspection. Non-tender. Normal alignment Pulmonary/Respiratory: Chest non-tender. Clear bilateral breath sounds, no crackles, no wheezing. Cardiovascular/Chest: Regular rate and rhythm. No murmurs. No JVD. Abdominal Exam: Normal bowel sounds. Soft. normal abdomen, no visible veins, Nontender. No hepatospenomegaly. No masses Ankle Exam: Negative ankle edema Neuro/Mental Status: A&O x4. Coherent. Thoughts/Psych: Normal thought pattern. Appropriate mood and affect. Good judgement and insight Skin Exam: Normal inspection. Normal color. Warm. Dry laboratory and microbiology Laboratory Tests 08/12/24 06:43 Test 08/12/24 06:43 Range/Units Serum Glucose 71 L 74-106 mg/dL Microbiology Date/Time Source Procedure Growth Status 08/07/24 06:30 Stool Clostridium difficile Toxin Assay - Final Complete 08/06/24 14:55 Voided Urine Urine Culture - Final Escherichia coli - ESBL Complete Problem List/Assessment/Plan Problem List/Assessment/Plan Anemia due to GI bleeding Large obstructive mass lesion of the hepatic flexure highly consistent with malignancy of the colon Internal hemorrhoids Gastritis Acute complicated UTI, ESBL+ Plan: Await the biopsy results Surgery on board; scheduled for laparoscopic right colectomy possible open surgery On INVANZ Preop CEA: 1.24 CT chest abdomen pelvis with contrast: Findings are suspicious for colon neoplasm measuring approximately 7.5 cm in the region of the hepatic flexure / proximal transverse colon. There are diffuse infiltrative changes in the right lower quadrant mesentery without discrete omental soft-tissue nodules. Few prominent lymph nodes in the right retroperitoneum are present measuring up to 1.8 cm. Otherwise, there are no findings of metastatic disease in the chest, abdomen or pelvis. Follow-up surveillance for colon cancer screening after surgery Thank you so much for the opportunity to consult on your patient. GI team will follow the patient. In case of any questions or concerns please feel free to reach out. Plan discussed with Dr. Figueroa Plan discussed with: Patient, Other (RN) Dietary Evaluation Review Comments: when medically feasible to advance to diet, Offer her a Regular with PO Ensure Enlive BID for nutrition supplement Expected Outcomes/Goals: prevent wt loss and improve nutrition status IDRIS DRUMMOND RESIDENT Aug 12, 2024 11:08
[2024-08-12 11:31] VITALS: PULSE 84; RESP 16; O2SAT 97
--- NOTE | 2024-08-12 12:36 | DVHOP2 ---
Operative Report - 2 Report Details Date: 08/12/24 Preop Diagnosis: 1. 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 Postop Diagnosis: 1. Same Surgeon: Mariaelena Carlton MD Med[employer] Professor: Gilberto Abernathy MD Anesthesiologist: Dr. Hood Anesthesia: General Drains: 15 Guyanese Kevin drain Consent: The surgery and its risks including but not limited to infection, bleeding requiring possible blood transfusion with the risk of hepatitis or HIV infection, possible open surgery, possible anastomotic leak requiring 2nd surgery with possible colostomy, possible perioperative CA or stroke were explained to the patient and her family. All questions were answered to their satisfaction. They expressed verbal understanding and wished to proceed with the surgery. Complications: None Estimated Blood Loss: 150 mL Fluids: 2500 mL Findings: Huge colon at the hepatic flexure causing near obstruction with adhesion to the pancreatic head. Name of Procedure Performed Laparoscopic right colectomy converted to an open right colectomy Procedure Details Procedure Details: After induction of general anesthesia, a Tejada catheter was placed by the OR nursing staff. Patient's abdomen was then prepped and draped in standard surgical fashion. A small supraumbilical incision was made and this incision was taken through the abdominal wall down to the fascia which was opened sharply. Peritoneum was then bluntly divided gaining access to the intra- abdominal cavity. Interrupted 0 Vicryl sutures were placed through the fascial incision and using an open technique, Krissy trocar was introduced and secured using the Vicryl sutures. Abdomen was insufflated to 15 mmHg and camera was inserted. Visual examination of the intestine under the fascial incision appeared normal without injury. Under direct visualization, a 5 mm bladeless trocar was placed in the left lower quadrant and a 2nd 5 mm bladeless trocar was placed in the suprapubic region both under direct visualization. Examination of the right upper quadrant revealed a very large tumor at the hepatic flexure. The right colon was 1st mobilized by taking down the white line of Toldt laterally beginning from the cecum and along the right gutter up to the hepatic flexure. Once the right colon was mobilized medially the attention was turned towards the transverse colon and the gastrocolic ligament was then divided using LigaSure device proceeding from the mid point of the transverse colon towards the hepatic flexure. At this point it was noted that this mass was basically adhering to the posterior wall of the stomach as well as the head of the pancreas. The stomach was able to be peeled off the tumor as it was due to inflammatory adhesions. However the head of the pancreas was quite close to the tumor and there was very little space as the tumor was basically abutting the head of the pancreas. Eventually the the mass was from the head of the pancreas. The Krissy trocar was then removed and abdomen was then deflated. The supraumbilical incision was then extended superiorly in an attempt to pull the right colon through the opening. However due to the large size of the mass the incision had to be extended further up towards the xiphoid region. Once the mass was externalized, the mid transverse colon and distal terminal ileum were divided using DUSTIN stapler and the mesentery of the right colon was then divided using a LigaSure device. The right colon was then sent off to pathology. Hemostasis of the surgical site was then controlled using 2-0 Vicryl sutures. Once hemostasis was achieved, the the terminal ileum was brought up to the transverse colon without tension and twisting of the bowel. A [id number] anastomosis was then performed by making enterotomies in each corresponding stump in a 75 mm DUSTIN stapler was used to fire and create the [id number] anastomosis. Newly created enterotomy was then closed using a 60 mm TA stapler. A single 3-0 silk suture was used to reinforce the cross staple line. There was wide open anastomosis and palpation without tension at the anastomosis. Bowel was then placed back into the abdominal cavity. Abdomen was then irrigated with sterile water. A 15 Guyanese Kevin drain was placed into the pelvis and along the right gutter extending up to the hepatic flexure. The end of the drain was then placed through the suprapubic trocar site and secured to the skin using 3-0 nylon sutures. Patient had an NG tube placed and the placement was confirmed by direct palpation in the stomach. Midline fascia was then closed using running looped 0 PDS sutures. Surgical site was irrigated and skin incision was then closed using bonnie. Sponge, needle, instrument count at the end of the case were reported to be correct by the nursing staff. The patient tolerated procedure well and was awakened, extubated and transferred to recovery in stable condition. Specimen: Right colon Condition Stable Disposition Still a Patient MARIAELENA CARLTON MD Aug 12, 2024 12:36
[2024-08-12] MEDS: SODIUM CHLORIDE 0.9% 1,000 ML IV SCH (12:45)
[2024-08-12 16:47] VITALS: BP 114/85; PULSE 118; RESP 17; TEMP 98.2; O2SAT 94
[2024-08-12 20:00] VITALS: PULSE 91; RESP 17; O2SAT 98
[2024-08-12 21:00] VITALS: BP 137/71; PULSE 91; RESP 17; TEMP 97.6; O2SAT 98
[2024-08-13] VITALS (7 sets, daily range): BP systolic 114–129; BP diastolic 70–84; PULSE 54–122; RESP 16–18; TEMP 97.3–98.1; O2SAT 94–100
--- NOTE | 2024-08-13 08:14 | DVHPN2 ---
Reviewed: Care Plan, H&P, Labs, Medications, Previous Orders, Radiology Changes from previous H/P or p: No Changes Objective Vitals Vital Signs Date Time Temp Pulse Resp B/P (MAP) Pulse Ox O2 Delivery O2 Flow Rate FiO2 08/13/24 05:00 97.4 54 17 114/70 (85) 100 97.4 08/12/24 20:00 Room Air* 0 21 Intake/Output Intake and Output 08/13/24 07:00 Intake Total 543 ml Output Total 1100 ml Balance -557 ml Intake Oral 0 ml IV Total 543 ml Output Urine Total 1075 ml Drainage Total 25 ml Medications Current Medications Medications Dose Ordered Sig/Chris Route Start Time Stop Time Status Last Admin Dose Admin Sodium Chloride 10 ml Q8HR IV 08/06/24 22:00 08/13/24 05:26 10 ML Docusate Sodium 100 mg BIDPRN PRN PO 08/06/24 18:15 Acetaminophen 650 mg Q6HP PRN PO 08/06/24 18:15 08/06/24 19:39 650 MG Acetaminophen/ Hydrocodone Bitart 1 tab Q4HP PRN PO 08/06/24 18:15 Hydromorphone HCl 0.5 mg Q4HP PRN IV 08/06/24 18:15 Ondansetron HCl 4 mg Q4HP PRN IV 08/06/24 18:15 Ertapenem 1 gm/ Sodium Chloride 50 ml @ 100 mls/hr DAILY IV 08/09/24 10:00 08/11/24 09:48 100 MLS/HR Pantoprazole Sodium 40 mg DAILY IV 08/13/24 10:00 Sodium Chloride 1,000 ml @ 75 mls/hr [id number] IV 08/12/24 12:30 08/13/24 05:27 75 MLS/HR Laboratory Results Laboratory Tests 08/12/24 06:43 Urinalysis Test 08/06/24 14:55 Urine Color Dark yellow (Yellow) Urine Clarity Turbid (Clear) H Urine pH 8.0 (5.0-9.0) Urine Specific [place] 1.019 (1.001-1.035) Urine Protein 1+ (Negative) H Urine Ketones Negative (Negative) Urine Blood Negative /uL (Negative) Urine Nitrite 2+ (Negative) H Urine Bilirubin Negative (Negative) Urine Urobilinogen 2 mg/dL (Negative) H Urine Leukocyte Esterase 3+ /uL (Negative) Urine RBC 8 /hpf (0 - 4) Urine Microscopic WBC 58 /HPF (0-5) H Urine Squamous Epithelial Cells Few /hpf (<5) Urine Bacteria None seen /hpf (None Seen) Urine Mucus Few (None Seen) Urine Glucose Normal mg/dL (Normal) Microbiology Microbiology Date/Time Source Procedure Growth Status 08/07/24 06:30 Stool Clostridium difficile Toxin Assay - Final Complete 08/06/24 14:55 Voided Urine Urine Culture - Final Escherichia coli - ESBL Complete Labs and/or images reviewed: Labs reviewed by me, Image(s) reviewed by me Assessment/Plan Assessment/Plan 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 Wilkins possible malignancy, biopsy result shows adenocarcinoma Status post Laparoscopic right colectomy converted to open right colectomy by Dr Hicks on 08-12-24 Gastritis by EGD by Dr. Wilkins, biopsy result pending Acute urinary tract infection: Urine cultures growing Gram-negative rods, continue Rocephin History of anemia History of multiple blood transfusions Anemia hemoglobin 7.9: 1 unit RBC transfused during surgery Physical therapy ordered Plan discussed with: Patient Date of Service: Aug 13, 2024 Billing Provider: SHAWANDA TRAN MD Common Visit Codes: [id number] INP/OBS CARE(HIGH) SHAWANDA TRAN MD Aug 13, 2024 08:14
[2024-08-13 08:59] LABS: Potassium 3.6 mmol/L (3.5-5.1)
[2024-08-13 09:00] LABS: Anion Gap 14 (5-15)
[2024-08-13] MEDS ORDERED: cefTRIAXone 1GM/50ML D5W 50 ML IV SCH (09:00)
[2024-08-13 09:03] LABS: Basophils # (auto) 0 10 ^3/uL (0-0.2); Basophils % (auto) 0.1 % (0.0-2.0); Eosinophils # (auto) 0 10 ^3/uL (0-0.8); Eosinophils % (auto) 0.3 % (0.0-7.0); Hematocrit 31.8 % (36.0-46.0); Hemoglobin 9.8 g/dL (12.2-16.2); Lymphocytes # (auto) 0.6 10 ^3/uL (0.4-5.4); Lymphocytes % (auto) 9.9 % (10.0-50.0); Mean Corpuscular Hemoglobin 21.7 pg (28.0-32.0); Mean Corpuscular Hgb Conc. 30.7 g/dL (32.0-36.0); Mean Corpuscular Volume 70.7 fL (80.0-100.0); Monocytes # (auto) 0.3 10 ^3/uL (0-1.3); Monocytes % (auto) 4.9 % (0.0-12.0); Neutrophils # (auto) 5.1 10 ^3/uL (1.6-8.6); Neutrophils % (auto) 84.8 % (37.0-80.0); Platelet Count (auto) 432 10^3/uL (140-450)
[2024-08-13 09:04] LABS: Red Cell Distribution Width 31.1 % (11.8-14.3)
[2024-08-13 09:05] LABS: Calcium 8.3 mg/dL (8.7-10.4); Carbon Dioxide 15 mmol/L (20-31); Chloride 117 mmol/L (98-107); Glucose 78 mg/dL (74-106); Sodium 146 mmol/L (136-145)
[2024-08-13 09:06] LABS: BUN/Creatinine Ratio 13.2 (10.0-20.0); Blood Urea Nitrogen < 5 mg/dL (9-23)
[2024-08-13] MEDS: PANTOPRAZOLE 40 MG/10 ML VIAL INJ IV SCH (09:58)
[2024-08-13 10:10] LABS: Anisocytosis Moderate; Hypochromia Slight
[2024-08-13 10:12] LABS: Ovalocytes FEW; Platelet Estimate Adequate
--- NOTE | 2024-08-13 13:13 | DVHPN2 ---
Progress Note Date Seen: Aug 13, 2024 Resident Creating Document: IDRIS DRUMMOND RESIDENT Medical Necessity Reason Pt with a Central, PICC or Fol: No Subjective Review of Systems Patient is a 49-year-old female with past medical history of anemia and bladder injury, who came to the ER due to weakness and lightheadedness along with dyspnea on exertion. She was noted to have anemia and also confirmed having black stools. Patient was also hospitalized in May 2024 with a hemoglobin of 4.[address] scan at the time showed possible colitis with some thickening. Patient completed EGD and colonoscopy on 08/08/2024, colonoscopy showed large obstructive mass lesion of the hepatic flexure highly consistent with malignancy of the colon, multiple biopsies taken for the cold biopsy forceps and tattooing done. Surgery was also taken on board, patient underwent right hemicolectomy yesterday, currently postoperative day 1. Objective vital signs Vital Sign Date Time Temp Pulse Resp B/P (MAP) Pulse Ox O2 Delivery O2 Flow Rate FiO2 08/13/24 08:52 98.0 98 16 126/75 (92) 95 98.0 08/13/24 08:00 Room Air* 0 21 Total Intake and Output 08/12/24 08/12/24 08/13/24 15:00 23:00 07:00 Intake Total 100 ml 443 ml Output Total 25 ml 1075 ml Balance 75 ml 443 ml -1075 ml medications Current Medications Medications Dose Ordered Sig/Chris Route Start Time Stop Time Status Last Admin Dose Admin Sodium Chloride 10 ml Q8HR IV 08/06/24 22:00 08/13/24 05:26 10 ML Docusate Sodium 100 mg BIDPRN PRN PO 08/06/24 18:15 Acetaminophen 650 mg Q6HP PRN PO 08/06/24 18:15 08/06/24 19:39 650 MG Acetaminophen/ Hydrocodone Bitart 1 tab Q4HP PRN PO 08/06/24 18:15 Hydromorphone HCl 0.5 mg Q4HP PRN IV 08/06/24 18:15 Ondansetron HCl 4 mg Q4HP PRN IV 08/06/24 18:15 Ertapenem 1 gm/ Sodium Chloride 50 ml @ 100 mls/hr DAILY IV 08/09/24 10:00 08/13/24 09:57 100 MLS/HR Pantoprazole Sodium 40 mg DAILY IV 08/13/24 10:00 08/13/24 09:58 40 MG Sodium Chloride 1,000 ml @ 75 mls/hr [id number] IV 08/12/24 12:30 08/13/24 05:27 75 MLS/HR Ceftriaxone Sodium 50 ml @ 100 mls/hr DAILY@09 IV 08/13/24 09:00 Hold Examination General Appearance: Cooperative. Well developed. NAD Head Exam: Normal inspection Neck Exam: Normal inspection. Non-tender. Normal alignment Pulmonary/Respiratory: Chest non-tender. Clear bilateral breath sounds, no crackles, no wheezing. Cardiovascular/Chest: Regular rate and rhythm. No murmurs. No JVD. Abdominal Exam: Normal bowel sounds. Soft. normal abdomen, no visible veins, to palpation. No hepatospenomegaly. No masses Ankle Exam: Negative ankle edema Neuro/Mental Status: A&O x4. Coherent. Thoughts/Psych: Normal thought pattern. Appropriate mood and affect. Good judgement and insight Skin Exam: Normal inspection. Normal color. Warm. Dry laboratory and microbiology Laboratory Tests 08/13/24 08:03 Test 08/13/24 08:03 Range/Units Serum Glucose 78 74-106 mg/dL Microbiology Date/Time Source Procedure Growth Status 08/07/24 06:30 Stool Clostridium difficile Toxin Assay - Final Complete 08/06/24 14:55 Voided Urine Urine Culture - Final Escherichia coli - ESBL Complete Labs and/or images reviewed: Labs reviewed by me, Image(s) reviewed by me Problem List/Assessment/Plan Problem List/Assessment/Plan Anemia due to GI bleeding Large obstructive mass lesion of the hepatic flexure highly consistent with malignancy of the colon Internal hemorrhoids Gastritis Acute complicated UTI, ESBL+ Plan: Await the biopsy results Surgery on board; scheduled for laparoscopic right colectomy converted to an open right colectomy, postoperative day 1 Started on Clinimix 42 mL/hour Added IV ceftriaxone and metronidazole On INVANZ Preop CEA: 1.24 CT chest abdomen pelvis with contrast: Findings are suspicious for colon neoplasm measuring approximately 7.5 cm in the region of the hepatic flexure / proximal transverse colon. There are diffuse infiltrative changes in the right lower quadrant mesentery without discrete omental soft-tissue nodules. Few prominent lymph nodes in the right retroperitoneum are present measuring up to 1.8 cm. Otherwise, there are no findings of metastatic disease in the chest, abdomen or pelvis. Follow-up surveillance for colon cancer screening after surgery Thank you so much for the opportunity to consult on your patient. GI team will follow the patient. In case of any questions or concerns please feel free to reach out. Plan discussed with Dr. Figueroa Plan discussed with: Patient, Other (RN) Dietary Evaluation Review Comments: when medically feasible to advance to diet, Offer her a Regular with PO Ensure Enlive BID for nutrition supplement Expected Outcomes/Goals: prevent wt loss and improve nutrition status IDRIS DRUMMOND RESIDENT Aug 13, 2024 13:13
[2024-08-13] MEDS ORDERED: metroNIDAZOLE 500MG/100ML 100 ML IV SCH (14:00)
--- NOTE | 2024-08-13 14:28 | DVHPN2 ---
Progress Note - Dictate Date Seen: Aug 13, 2024 Medical Necessity Reason Pt with a Central, PICC or Fol: No Subjective E: no major events o/n. c/o incisional pain but better. vital signs Vital Sign Date Time Temp Pulse Resp B/P (MAP) Pulse Ox O2 Delivery O2 Flow Rate FiO2 08/13/24 13:00 98.1 112 16 125/80 (95) 96 98.1 08/13/24 08:00 Room Air* 0 21 Total Intake and Output 08/12/24 08/12/24 08/13/24 15:00 23:00 07:00 Intake Total 100 ml 443 ml Output Total 25 ml 1075 ml Balance 75 ml 443 ml -1075 ml medications Current Medications Medications Dose Ordered Sig/Chris Route Start Time Stop Time Status Last Admin Dose Admin Sodium Chloride 10 ml Q8HR IV 08/06/24 22:00 08/13/24 05:26 10 ML Docusate Sodium 100 mg BIDPRN PRN PO 08/06/24 18:15 Acetaminophen 650 mg Q6HP PRN PO 08/06/24 18:15 08/06/24 19:39 650 MG Acetaminophen/ Hydrocodone Bitart 1 tab Q4HP PRN PO 08/06/24 18:15 Hydromorphone HCl 0.5 mg Q4HP PRN IV 08/06/24 18:15 Ondansetron HCl 4 mg Q4HP PRN IV 08/06/24 18:15 Ertapenem 1 gm/ Sodium Chloride 50 ml @ 100 mls/hr DAILY IV 08/09/24 10:00 08/13/24 09:57 100 MLS/HR Pantoprazole Sodium 40 mg DAILY IV 08/13/24 10:00 08/13/24 09:58 40 MG Sodium Chloride 1,000 ml @ 75 mls/hr [id number] IV 08/12/24 12:30 08/13/24 05:27 75 MLS/HR Ceftriaxone Sodium 50 ml @ 100 mls/hr DAILY@09 IV 08/13/24 09:00 Hold objective GEN: NAD ABD: surgical dressings clean and dry. MICHAEL 100 mL serosang o/n. laboratory and microbiology Laboratory Tests 08/13/24 08:03 Test 08/13/24 08:03 Range/Units Serum Glucose 78 74-106 mg/dL Assessment/Plan A: 1. hepatic flexure nearly obstructing adenocarcinoma P: 1. cont curr tx. Dietary Evaluation Review Comments: when medically feasible to advance to diet, Offer her a Regular with PO Ensure Enlive BID for nutrition supplement Expected Outcomes/Goals: prevent wt loss and improve nutrition status Plan discussed with: Patient, Spouse, Daughter MARIAELENA CARLTON MD Aug 13, 2024 14:28
[2024-08-13] MEDS ORDERED: CLINIMIX PER PHARMACY 0 ML IV SCH (14:45)
[2024-08-13] MEDS: HYDROmorphone HCL 2 MG/ML VL/or syr IV PRN (17:36)
[2024-08-13] MEDS ORDERED: DEXTROSE (50%) 50ML SYRG IV SCH (22:00)
[2024-08-13] MEDS: AMINO ACID INFUSION IN D5W 1,000 ML IV SCH (22:00)
[2024-08-13] MEDS: InsuLIN REG 1unit/0.01ml Soln (100units/ml) SC SCH (23:46)
[2024-08-13] MEDS: ACCU-CHEK COMFORT CURVE STRIP VI SCH (23:46)
[2024-08-14] VITALS (8 sets, daily range): BP systolic 127–148; BP diastolic 46–83; PULSE 100–113; RESP 14–17; TEMP 97.4–98.6; O2SAT 90–98
[2024-08-14 05:55] LABS: Alkaline Phosphatase 83 U/L (46-116); Anion Gap 12 (5-15); Aspartate Aminotransferase 18 U/L (13-40); Magnesium 1.8 mg/dL (1.6-2.6); Total Protein 5.7 g/dL (5.7-8.2)
[2024-08-14 05:57] LABS: Alanine Aminotransferase 9 U/L (7-40); BUN/Creatinine Ratio 13.9 (10.0-20.0); Bilirubin, Total 0.2 mg/dL (0.2-1.0); Blood Urea Nitrogen < 5 mg/dL (9-23); Calcium 8.5 mg/dL (8.7-10.4); Carbon Dioxide 17 mmol/L (20-31); Chloride 118 mmol/L (98-107); Glucose 132 mg/dL (74-106); Phosphorus 2.1 mg/dL (2.4-5.1); Potassium 3.2 mmol/L (3.5-5.1); Sodium 147 mmol/L (136-145)
--- NOTE | 2024-08-14 08:25 | DVHPN2 ---
Reviewed: Care Plan, H&P, Labs, Medications, Previous Orders, Radiology Changes from previous H/P or p: No Changes Objective Vitals Vital Signs Date Time Temp Pulse Resp B/P (MAP) Pulse Ox O2 Delivery O2 Flow Rate FiO2 08/14/24 04:58 98.6 109 17 148/46 (80) 95 98.6 08/13/24 20:00 Room Air* 0 21 Intake/Output Intake and Output 08/14/24 07:00 Intake Total 913 ml Output Total 900 ml Balance 13 ml Intake Oral 0 ml IV Total 913 ml Output Urine Total 900 ml Medications Current Medications Medications Dose Ordered Sig/Chris Route Start Time Stop Time Status Last Admin Dose Admin Sodium Chloride 10 ml Q8HR IV 08/06/24 22:00 08/14/24 06:05 10 ML Docusate Sodium 100 mg BIDPRN PRN PO 08/06/24 18:15 Acetaminophen 650 mg Q6HP PRN PO 08/06/24 18:15 08/06/24 19:39 650 MG Acetaminophen/ Hydrocodone Bitart 1 tab Q4HP PRN PO 08/06/24 18:15 Hydromorphone HCl 0.5 mg Q4HP PRN IV 08/06/24 18:15 08/14/24 02:09 0.5 MG Ondansetron HCl 4 mg Q4HP PRN IV 08/06/24 18:15 Ertapenem 1 gm/ Sodium Chloride 50 ml @ 100 mls/hr DAILY IV 08/09/24 10:00 08/13/24 09:57 100 MLS/HR Pantoprazole Sodium 40 mg DAILY IV 08/13/24 10:00 08/13/24 09:58 40 MG Sodium Chloride 1,000 ml @ 75 mls/hr [id number] IV 08/12/24 12:30 08/13/24 05:27 75 MLS/HR Ceftriaxone Sodium 50 ml @ 100 mls/hr DAILY@09 IV 08/13/24 09:00 Hold Amino Acids 0 ml @ 0 mls/hr PER PHARMACY IV 08/13/24 14:45 Amino Acids 1,000 ml @ 41 mls/hr DAILY@2200 IV 08/13/24 22:00 08/13/24 22:00 41 MLS/HR Diagnostic Test (Pha) 1 strip Q6HR 08/14/24 00:00 08/14/24 06:06 1 STRIP Insulin Human Regular FOLLOW SLIDING SCALE Q6HR SC 08/14/24 00:00 Dextrose 50 ml UD IV 08/13/24 22:00 Laboratory Results Laboratory Tests 08/13/24 08:03 08/14/24 04:55 Chemistry Test 08/14/24 04:55 Albumin 3.0 g/dL (3.2-4.8) L Calcium Level 8.5 mg/dL (8.7-10.4) L Magnesium Level 1.8 mg/dL (1.6-2.6) Phosphorus Level 2.1 mg/dL (2.4-5.1) L Total Protein 5.7 g/dL (5.7-8.2) LFT Test 08/14/24 04:55 Alanine Aminotransferase (ALT) 9 U/L (7-40) Alkaline Phosphatase 83 U/L (46-116) Aspartate Amino Transferase (AST) 18 U/L (13-40) Total Bilirubin 0.2 mg/dL (0.2-1.0) Urinalysis Test 08/06/24 14:55 Urine Color Dark yellow (Yellow) Urine Clarity Turbid (Clear) H Urine pH 8.0 (5.0-9.0) Urine Specific [place] 1.019 (1.001-1.035) Urine Protein 1+ (Negative) H Urine Ketones Negative (Negative) Urine Blood Negative /uL (Negative) Urine Nitrite 2+ (Negative) H Urine Bilirubin Negative (Negative) Urine Urobilinogen 2 mg/dL (Negative) H Urine Leukocyte Esterase 3+ /uL (Negative) Urine RBC 8 /hpf (0 - 4) Urine Microscopic WBC 58 /HPF (0-5) H Urine Squamous Epithelial Cells Few /hpf (<5) Urine Bacteria None seen /hpf (None Seen) Urine Mucus Few (None Seen) Urine Glucose Normal mg/dL (Normal) Microbiology Microbiology Date/Time Source Procedure Growth Status 08/07/24 06:30 Stool Clostridium difficile Toxin Assay - Final Complete 08/06/24 14:55 Voided Urine Urine Culture - Final Escherichia coli - ESBL Complete Labs and/or images reviewed: Labs reviewed by me, Image(s) reviewed by me Assessment/Plan Assessment/Plan 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 Wilkins possible malignancy, biopsy result shows adenocarcinoma Status post Laparoscopic right colectomy converted to open right colectomy by Dr Hicks on 08-12-24 Gastritis by EGD by Dr. Wilkins, biopsy result pending Acute urinary tract infection: Urine cultures growing Gram-negative rods, continue Rocephin History of anemia History of multiple blood transfusions Anemia hemoglobin 7.9: 1 unit RBC transfused during surgery hemoglobin now 9.8 Physical therapy ordered Patient is feeling better Advanced diet as tolerated Nutrition supplement : Ensure, clinimix Plan discussed with: Patient My Orders Orders - SHAWANDA TRAN MD Procedure Category Date Status Time Nutritional PHA 08/14/24 Transmitted Supplements (Ensure 12:00 Date of Service: Aug 14, 2024 Billing Provider: SHAWANDA TRAN MD Common Visit Codes: [id number] INP/OBS CARE(HIGH) SHAWANDA TRAN MD Aug 14, 2024 08:25
--- NOTE | 2024-08-14 09:36 | CONS ---
Pharmacy Clinical Information: CURRENT IVF = NS @75 ML/HR SODIUM = 147 (H), CHLORIDE = 118 (H) CONSIDER CHANGING IVF TO 0.45NS OR D5W [employer] PHARMACIST Aug 14, 2024 09:36
[2024-08-14] MEDS: POTASSIUM PHOSPHATE 26.4 MEQ in SODIUM CHL 0.9% 100 ML IV ONE (09:45)
[2024-08-14] MEDS: Ensure Enlive Strawberry 8oz Bottle PO SCH (12:00)
[2024-08-14] MEDS: LACTATED RINGER'S 1,000 ML IV SCH (14:15)
--- NOTE | 2024-08-14 14:37 | DVHPN2 ---
Progress Note - Dictate Date Seen: Aug 14, 2024 Medical Necessity Reason Pt with a Central, PICC or Fol: No Subjective E: no major events o/n. c/o incisional pain but better. vital signs Vital Sign Date Time Temp Pulse Resp B/P (MAP) Pulse Ox O2 Delivery O2 Flow Rate FiO2 08/14/24 12:05 97.4 104 16 127/78 (94) 98 97.4 08/14/24 08:00 Room Air* 0 21 Total Intake and Output 08/13/24 08/13/24 08/14/24 15:00 23:00 07:00 Intake Total 50 ml 863 ml 0 ml Output Total 750 ml 150 ml Balance 50 ml 113 ml -150 ml medications Current Medications Medications Dose Ordered Sig/Chris Route Start Time Stop Time Status Last Admin Dose Admin Sodium Chloride 10 ml Q8HR IV 08/06/24 22:00 08/14/24 06:05 10 ML Docusate Sodium 100 mg BIDPRN PRN PO 08/06/24 18:15 Acetaminophen 650 mg Q6HP PRN PO 08/06/24 18:15 08/06/24 19:39 650 MG Acetaminophen/ Hydrocodone Bitart 1 tab Q4HP PRN PO 08/06/24 18:15 Hydromorphone HCl 0.5 mg Q4HP PRN IV 08/06/24 18:15 08/14/24 02:09 0.5 MG Ondansetron HCl 4 mg Q4HP PRN IV 08/06/24 18:15 Ertapenem 1 gm/ Sodium Chloride 50 ml @ 100 mls/hr DAILY IV 08/09/24 10:00 08/14/24 09:08 100 MLS/HR Pantoprazole Sodium 40 mg DAILY IV 08/13/24 10:00 08/14/24 09:09 40 MG Ceftriaxone Sodium 50 ml @ 100 mls/hr DAILY@09 IV 08/13/24 09:00 Hold Amino Acids 0 ml @ 0 mls/hr PER PHARMACY IV 08/13/24 14:45 Amino Acids 1,000 ml @ 41 mls/hr DAILY@2200 IV 08/13/24 22:00 08/13/24 22:00 41 MLS/HR Diagnostic Test (Pha) 1 strip Q6HR 08/14/24 00:00 08/14/24 12:00 1 STRIP Insulin Human Regular FOLLOW SLIDING SCALE Q6HR SC 08/14/24 00:00 Dextrose 50 ml UD IV 08/13/24 22:00 Enteral Nutritional Formula 240 ml TIDWM PO 08/14/24 12:00 Lactated Ringer's 1,000 ml @ 50 mls/hr Q20H IV 08/14/24 14:15 objective GEN: NAD ABD: surgical incisions clean and dry. MICHAEL 25 mL serosang. laboratory and microbiology Laboratory Tests 08/14/24 04:55 08/13/24 08:03 Test 08/14/24 04:55 Range/Units Serum Glucose 132 H 74-106 mg/dL Assessment/Plan A: 1. POD #2 improving. P: 1. clamp NGT Dietary Evaluation Review Comments: 1) If patient remains NPO > 7 days, increase TPN to meet at least 75% of estimated needs 2) Advance to regular diet as medically feasible, pending [employer] approval. Continue Ensure Enlive tid as previously ordered. Oral nutrition supplements provide 350 kcal and 20g Pro per 8 fl oz. 3) F/u with gastroenterology and oncology 4) Continue to monitor I&O, labs, and skin integrity. Oral nutrition supplements meet increased protein needs Expected Outcomes/Goals: 1) appetite and labs to improve 2) diet to advance 3) f/u in 2-3 days Plan discussed with: Patient, Daughter MARIAELENA CARLTON MD Aug 14, 2024 14:37
[2024-08-15] VITALS (10 sets, daily range): BP systolic 99–132; BP diastolic 61–82; PULSE 50–113; RESP 14–18; TEMP 97.2–98.5; O2SAT 91–98
[2024-08-15 07:54] LABS: Basophils # (auto) 0 10 ^3/uL (0-0.2); Eosinophils # (auto) 0.2 10 ^3/uL (0-0.8); Hematocrit 28.5 % (36.0-46.0); Hemoglobin 8.7 g/dL (12.2-16.2); Lymphocytes # (auto) 0.8 10 ^3/uL (0.4-5.4); Monocytes # (auto) 0.4 10 ^3/uL (0-1.3); White Blood Cell 5.6 10^3/uL (4.4-10.8)
[2024-08-15 07:56] LABS: Basophils % (auto) 0.4 % (0.0-2.0); Eosinophils % (auto) 3.6 % (0.0-7.0); Lymphocytes % (auto) 14.5 % (10.0-50.0); Mean Corpuscular Hemoglobin 22.4 pg (28.0-32.0); Mean Corpuscular Hgb Conc. 30.5 g/dL (32.0-36.0); Mean Corpuscular Volume 73.4 fL (80.0-100.0); Neutrophils # (auto) 4.1 10 ^3/uL (1.6-8.6); Neutrophils % (auto) 73.5 % (37.0-80.0); Nucleated Red Blood Cells % 0.1 %; Platelet Count (auto) 187 10^3/uL (140-450); Red Blood Cells 3.88 10^6/uL (4.0-5.20)
[2024-08-15 08:00] LABS: Red Cell Distribution Width 30.8 % (11.8-14.3)
--- NOTE | 2024-08-15 08:19 | DVHPN2 ---
Reviewed: Care Plan, H&P, Labs, Medications, Previous Orders, Radiology Changes from previous H/P or p: No Changes Objective Vitals Vital Signs Date Time Temp Pulse Resp B/P (MAP) Pulse Ox O2 Delivery O2 Flow Rate FiO2 08/15/24 05:00 88 18 125/68 08/15/24 05:00 98.2 93 98.2 08/14/24 20:00 Room Air* 0 21 Intake/Output Intake and Output 08/15/24 07:00 Intake Total 350 ml Output Total 700 ml Balance -350 ml Intake Oral 300 ml IV Total 50 ml Output Urine Total 700 ml Medications Current Medications Medications Dose Ordered Sig/Chris Route Start Time Stop Time Status Last Admin Dose Admin Sodium Chloride 10 ml Q8HR IV 08/06/24 22:00 08/15/24 07:25 10 ML Docusate Sodium 100 mg BIDPRN PRN PO 08/06/24 18:15 Acetaminophen 650 mg Q6HP PRN PO 08/06/24 18:15 08/06/24 19:39 650 MG Acetaminophen/ Hydrocodone Bitart 1 tab Q4HP PRN PO 08/06/24 18:15 Hydromorphone HCl 0.5 mg Q4HP PRN IV 08/06/24 18:15 08/15/24 01:33 0.5 MG Ondansetron HCl 4 mg Q4HP PRN IV 08/06/24 18:15 Ertapenem 1 gm/ Sodium Chloride 50 ml @ 100 mls/hr DAILY IV 08/09/24 10:00 08/14/24 09:08 100 MLS/HR Pantoprazole Sodium 40 mg DAILY IV 08/13/24 10:00 08/14/24 09:09 40 MG Ceftriaxone Sodium 50 ml @ 100 mls/hr DAILY@09 IV 08/13/24 09:00 Hold Amino Acids 0 ml @ 0 mls/hr PER PHARMACY IV 08/13/24 14:45 Amino Acids 1,000 ml @ 41 mls/hr DAILY@2200 IV 08/13/24 22:00 08/14/24 21:43 41 MLS/HR Diagnostic Test (Pha) 1 strip Q6HR 08/14/24 00:00 08/15/24 07:27 1 STRIP Insulin Human Regular FOLLOW SLIDING SCALE Q6HR SC 08/14/24 00:00 Dextrose 50 ml UD IV 08/13/24 22:00 Enteral Nutritional Formula 240 ml TIDWM PO 08/14/24 12:00 Lactated Ringer's 1,000 ml @ 50 mls/hr Q20H IV 08/14/24 14:15 08/14/24 14:15 50 MLS/HR Laboratory Results Laboratory Tests 08/15/24 07:04 Chemistry Test 08/15/24 07:04 Albumin Pending Calcium Level Pending Magnesium Level Pending Phosphorus Level Pending Total Protein Pending Lipid panel Test 08/15/24 07:04 Triglycerides Level Pending LFT Test 08/15/24 07:04 Alanine Aminotransferase (ALT) Pending Alkaline Phosphatase Pending Aspartate Amino Transferase (AST) Pending Total Bilirubin Pending Urinalysis Test 08/06/24 14:55 Urine Color Dark yellow (Yellow) Urine Clarity Turbid (Clear) H Urine pH 8.0 (5.0-9.0) Urine Specific [place] 1.019 (1.001-1.035) Urine Protein 1+ (Negative) H Urine Ketones Negative (Negative) Urine Blood Negative /uL (Negative) Urine Nitrite 2+ (Negative) H Urine Bilirubin Negative (Negative) Urine Urobilinogen 2 mg/dL (Negative) H Urine Leukocyte Esterase 3+ /uL (Negative) Urine RBC 8 /hpf (0 - 4) Urine Microscopic WBC 58 /HPF (0-5) H Urine Squamous Epithelial Cells Few /hpf (<5) Urine Bacteria None seen /hpf (None Seen) Urine Mucus Few (None Seen) Urine Glucose Normal mg/dL (Normal) Microbiology Microbiology Date/Time Source Procedure Growth Status 08/07/24 06:30 Stool Clostridium difficile Toxin Assay - Final Complete 08/06/24 14:55 Voided Urine Urine Culture - Final Escherichia coli - ESBL Complete Labs and/or images reviewed: Labs reviewed by me, Image(s) reviewed by me Assessment/Plan Assessment/Plan 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 Wilkins possible malignancy, biopsy result shows adenocarcinoma Status post Laparoscopic right colectomy converted to open right colectomy by Dr Hicks on 08-12-24, postop day 3. Gastritis by EGD by Dr. Wilkins, biopsy result pending Acute urinary tract infection: Urine cultures growing Gram-negative rods, continue Rocephin History of anemia History of multiple blood transfusions Anemia hemoglobin 7.9: 1 unit RBC transfused during surgery hemoglobin now 9.8 Physical therapy ordered Patient is feeling better Advanced diet as tolerated Nutrition supplement : Ensure, clinimix Continue current management Plan discussed with: Patient My Orders Orders - SHAWANDA TRAN MD Procedure Category Date Status Time Nutritional PHA 08/14/24 In Process Supplements (Ensure 12:00 Insert Midline ORDERS 08/14/24 Transmitted 11:51 Communication Order ORDERS 08/14/24 Transmitted 13:16 Date of Service: Aug 15, 2024 Billing Provider: SHAWANDA TRAN MD Common Visit Codes: [id number] INP/OBS CARE(HIGH) SHAWANDA TRAN MD Aug 15, 2024 08:19
[2024-08-15 08:20] LABS: Alkaline Phosphatase 75 U/L (46-116); Anion Gap 11 (5-15); Aspartate Aminotransferase 17 U/L (13-40); Magnesium 1.8 mg/dL (1.6-2.6); Triglycerides 131 mg/dL (< 150)
[2024-08-15 08:31] LABS: Alanine Aminotransferase < 9 U/L (7-40); BUN/Creatinine Ratio 20.8 (10.0-20.0); Blood Urea Nitrogen < 5 mg/dL (9-23); Carbon Dioxide 20 mmol/L (20-31); Chloride 114 mmol/L (98-107); Glucose 120 mg/dL (74-106); Potassium 2.7 mmol/L (3.5-5.1); Sodium 145 mmol/L (136-145)
[2024-08-15 08:32] LABS: Albumin 2.8 g/dL (3.2-4.8); Bilirubin, Total 0.3 mg/dL (0.2-1.0); Calcium 8.4 mg/dL (8.7-10.4); Phosphorus 1.5 mg/dL (2.4-5.1); Total Protein 5.5 g/dL (5.7-8.2)
[2024-08-15 08:57] LABS: Hypochromia Slight
[2024-08-15 08:58] LABS: Ovalocytes FEW; Platelet Estimate Adequate
--- NOTE | 2024-08-15 09:44 | DVHPN2 ---
Progress Note - Dictate Date Seen: Aug 15, 2024 Medical Necessity Reason Pt with a Central, PICC or Fol: No Subjective E: no major events o/n. feels better. denies abd pain, N/V. no flatus. vital signs Vital Sign Date Time Temp Pulse Resp B/P (MAP) Pulse Ox O2 Delivery O2 Flow Rate FiO2 08/15/24 09:00 98.1 97 16 122/73 (89) 91 98.1 08/14/24 20:00 Room Air* 0 21 Total Intake and Output 08/14/24 08/14/24 08/15/24 15:00 23:00 07:00 Intake Total 50 ml 300 ml Output Total 650 ml 50 ml Balance 50 ml -650 ml 250 ml medications Current Medications Medications Dose Ordered Sig/Chris Route Start Time Stop Time Status Last Admin Dose Admin Sodium Chloride 10 ml Q8HR IV 08/06/24 22:00 08/15/24 07:25 10 ML Docusate Sodium 100 mg BIDPRN PRN PO 08/06/24 18:15 Acetaminophen 650 mg Q6HP PRN PO 08/06/24 18:15 08/06/24 19:39 650 MG Acetaminophen/ Hydrocodone Bitart 1 tab Q4HP PRN PO 08/06/24 18:15 Hydromorphone HCl 0.5 mg Q4HP PRN IV 08/06/24 18:15 08/15/24 01:33 0.5 MG Ondansetron HCl 4 mg Q4HP PRN IV 08/06/24 18:15 Ertapenem 1 gm/ Sodium Chloride 50 ml @ 100 mls/hr DAILY IV 08/09/24 10:00 08/14/24 09:08 100 MLS/HR Pantoprazole Sodium 40 mg DAILY IV 08/13/24 10:00 08/14/24 09:09 40 MG Ceftriaxone Sodium 50 ml @ 100 mls/hr DAILY@09 IV 08/13/24 09:00 Hold Amino Acids 0 ml @ 0 mls/hr PER PHARMACY IV 08/13/24 14:45 Amino Acids 1,000 ml @ 41 mls/hr DAILY@2200 IV 08/13/24 22:00 08/14/24 21:43 41 MLS/HR Diagnostic Test (Pha) 1 strip Q6HR 08/14/24 00:00 08/15/24 07:27 1 STRIP Insulin Human Regular FOLLOW SLIDING SCALE Q6HR SC 08/14/24 00:00 Dextrose 50 ml UD IV 08/13/24 22:00 Enteral Nutritional Formula 240 ml TIDWM PO 08/14/24 12:00 Lactated Ringer's 1,000 ml @ 50 mls/hr Q20H IV 08/14/24 14:15 08/14/24 14:15 50 MLS/HR objective GEN: NAD ABD: surgical incisions clean and dry. MICHAEL light serousang laboratory and microbiology Laboratory Tests 08/15/24 07:04 Test 08/15/24 07:04 Range/Units Serum Glucose 120 H 74-106 mg/dL Assessment/Plan A: 1. POD #3 improving. P: 1. DC NGT. Dietary Evaluation Review Comments: 1) If patient remains NPO > 7 days, increase TPN to meet at least 75% of estimated needs 2) Advance to regular diet as medically feasible, pending [employer] approval. Continue Ensure Enlive tid as previously ordered. Oral nutrition supplements provide 350 kcal and 20g Pro per 8 fl oz. 3) F/u with gastroenterology and oncology 4) Continue to monitor I&O, labs, and skin integrity. Oral nutrition supplements meet increased protein needs Expected Outcomes/Goals: 1) appetite and labs to improve 2) diet to advance 3) f/u in 2-3 days Plan discussed with: Patient MARIAELENA CARLTON MD Aug 15, 2024 09:44
[2024-08-15] MEDS: SODIUM CHL 0.9% 100 ML IV SCH (11:45)
[2024-08-15] MEDS: POTASSIUM CHL 20MEQ/50ML 50 ML IV SCH (12:08)
--- NOTE | 2024-08-15 13:48 | MEDREC ---
[facility] ASP Intervention Section I [facility] ASP Intervention: Duplication of therapy (PLEASE CONSIDER D/C CEFTRIAXONE - DUPLICATE WITH ERTAPENEM) IRWIN DELANEY PHARMACIST Aug 15, 2024 13:47
[2024-08-15] MEDS: ONDANSETRON HCL 4 MG/2 ML VIAL IV PRN (15:17)
[2024-08-15 18:39] LABS: Anion Gap 11 (5-15); Carbon Dioxide 22 mmol/L (20-31)
[2024-08-15 18:43] LABS: Calcium 8.4 mg/dL (8.7-10.4); Chloride 113 mmol/L (98-107); Potassium 2.9 mmol/L (3.5-5.1); Sodium 146 mmol/L (136-145)
[2024-08-15 18:44] LABS: BUN/Creatinine Ratio 27.6 (10.0-20.0)
[2024-08-15 18:48] LABS: Blood Urea Nitrogen 8 mg/dL (9-23); Glucose 128 mg/dL (74-106)
[2024-08-15] MEDS: LACTATED RINGER'S 1,000 ML IV SCH (22:00)
[2024-08-15] MEDS: HYDROmorphone HCL 2 MG/ML VL/or syr IV PRN (22:05)
[2024-08-16] VITALS (8 sets, daily range): BP systolic 101–132; BP diastolic 50–81; PULSE 74–120; RESP 14–18; TEMP 97.3–98.8; O2SAT 90–98
[2024-08-16] MEDS: MELATONIN 5 MG TAB PO ONE (01:22)
[2024-08-16 05:51] LABS: Basophils # (auto) 0 10 ^3/uL (0-0.2); Eosinophils # (auto) 0.1 10 ^3/uL (0-0.8); Lymphocytes # (auto) 0.8 10 ^3/uL (0.4-5.4); Monocytes # (auto) 0.4 10 ^3/uL (0-1.3); Neutrophils # (auto) 4.3 10 ^3/uL (1.6-8.6); White Blood Cell 5.6 10^3/uL (4.4-10.8)
[2024-08-16 05:54] LABS: Basophils % (auto) 0.3 % (0.0-2.0); Eosinophils % (auto) 2.4 % (0.0-7.0); Hematocrit 25.5 % (36.0-46.0); Hemoglobin 8.3 g/dL (12.2-16.2); Lymphocytes % (auto) 13.7 % (10.0-50.0); Mean Corpuscular Hemoglobin 22.1 pg (28.0-32.0); Mean Corpuscular Hgb Conc. 32.4 g/dL (32.0-36.0); Mean Corpuscular Volume 68.2 fL (80.0-100.0); Monocytes % (auto) 6.8 % (0.0-12.0); Neutrophils % (auto) 76.8 % (37.0-80.0); Platelet Count (auto) 323 10^3/uL (140-450); Red Blood Cells 3.73 10^6/uL (4.0-5.20); Red Cell Distribution Width 31.2 % (11.8-14.3)
[2024-08-16 06:05] LABS: Alkaline Phosphatase 74 U/L (46-116); Anion Gap 9 (5-15); BUN/Creatinine Ratio 36.4 (10.0-20.0); Carbon Dioxide 24 mmol/L (20-31); Magnesium 1.7 mg/dL (1.6-2.6)
[2024-08-16 06:06] LABS: Alanine Aminotransferase < 9 U/L (7-40); Albumin 2.8 g/dL (3.2-4.8); Aspartate Aminotransferase 12 U/L (13-40); Bilirubin, Total 0.3 mg/dL (0.2-1.0); Blood Urea Nitrogen 8 mg/dL (9-23); Calcium 8.5 mg/dL (8.7-10.4); Chloride 113 mmol/L (98-107); Glucose 113 mg/dL (74-106); Phosphorus 1.3 mg/dL (2.4-5.1); Potassium 3.1 mmol/L (3.5-5.1); Sodium 146 mmol/L (136-145); Total Protein 5.3 g/dL (5.7-8.2)
[2024-08-16 06:51] LABS: Hypochromia Slight
[2024-08-16 06:55] LABS: Ovalocytes FEW
[2024-08-16 06:56] LABS: Platelet Estimate Adequate
--- NOTE | 2024-08-16 09:15 | DVHPN2 ---
Subjective Date Seen: Aug 16, 2024 Post op day Post op day: 3 Patient reports: No new complaints, Feels better Nursing reports: No new complaints, No abdominal pain General: Normal HNT: Normal Cardiovascular: Normal Respiratory: Normal Gastrointestinal: Normal Genitourinary: Normal Musculoskeletal: Normal Neurological: Normal Objective Vitals Vital Sign Date Time Temp Pulse Resp B/P (MAP) Pulse Ox O2 Delivery O2 Flow Rate FiO2 08/16/24 05:00 98.5 98 14 122/75 (91) 94 98.5 08/15/24 20:00 Room Air* 0 21 Total Intake and Output 08/15/24 08/15/24 08/16/24 15:00 23:00 07:00 Intake Total 100 ml 50 ml 0 ml Output Total 105 ml 150 ml Balance -5 ml -100 ml 0 ml Medications Current Medications Medications Dose Ordered Sig/Chris Route Start Time Stop Time Status Last Admin Dose Admin Sodium Chloride 10 ml Q8HR IV 08/06/24 22:00 08/16/24 05:59 10 ML Docusate Sodium 100 mg BIDPRN PRN PO 08/06/24 18:15 Acetaminophen 650 mg Q6HP PRN PO 08/06/24 18:15 08/06/24 19:39 650 MG Ondansetron HCl 4 mg Q4HP PRN IV 08/06/24 18:15 08/15/24 15:17 4 MG Ertapenem 1 gm/ Sodium Chloride 50 ml @ 100 mls/hr DAILY IV 08/09/24 10:00 08/15/24 12:07 100 MLS/HR Pantoprazole Sodium 40 mg DAILY IV 08/13/24 10:00 08/15/24 12:07 40 MG Ceftriaxone Sodium 50 ml @ 100 mls/hr DAILY@09 IV 08/13/24 09:00 Hold Amino Acids 0 ml @ 0 mls/hr PER PHARMACY IV 08/13/24 14:45 Amino Acids 1,000 ml @ 41 mls/hr DAILY@2200 IV 08/13/24 22:00 08/15/24 21:30 41 MLS/HR Diagnostic Test (Pha) 1 strip Q6HR 08/14/24 00:00 08/16/24 05:59 1 STRIP Insulin Human Regular FOLLOW SLIDING SCALE Q6HR SC 08/14/24 00:00 08/15/24 12:57 2 UNITS Dextrose 50 ml UD IV 08/13/24 22:00 Enteral Nutritional Formula 240 ml TIDWM PO 08/14/24 12:00 Lactated Ringer's 1,000 ml @ 100 mls/hr Q10H IV 08/15/24 22:00 08/16/24 02:35 100 MLS/HR Hydromorphone HCl 0.5 mg Q6HPRN PRN IV 08/15/24 22:00 08/15/24 22:05 0.5 MG General: Normal, Well developed, Well nourished, Normal Appearance Head/Eyes: Normal ENT: Normal, Normal ears, Normal nose Neck: Normal, Supple, No JVD Lungs: Normal, Normal inspection Cardiovascular: Normal, Regular rate and rhythm Abdominal: Normal, Soft, Normal inspection, Non tender Musculoskeletal: Normal Extremities: Normal Skin: Normal Neurological: Normal Labs and Microbiology Laboratory Tests 08/16/24 04:31 Test 08/16/24 04:31 Range/Units Serum Glucose 113 H 74-106 mg/dL Ass/Plan Labs and/or images reviewed: Labs reviewed by me, Image(s) reviewed by me Problem List Anemia due to GI bleeding Large obstructive mass lesion of the hepatic flexure highly consistent with malignancy of the colon Internal hemorrhoids Gastritis Acute complicated UTI, ESBL+ Plan: Await the biopsy results Surgery on board; scheduled for laparoscopic right colectomy converted to an open right colectomy, postoperative day 1 Started on Clinimix 42 mL/hour Added IV ceftriaxone and metronidazole On INVANZ Preop CEA: 1.24 CT chest abdomen pelvis with contrast: Findings are suspicious for colon neoplasm measuring approximately 7.5 cm in the region of the hepatic flexure / proximal transverse colon. There are diffuse infiltrative changes in the right lower quadrant mesentery without discrete omental soft-tissue nodules. Few prominent lymph nodes in the right retroperitoneum are present measuring up to 1.8 cm. Otherwise, there are no findings of metastatic disease in the chest, abdomen or pelvis. Follow-up surveillance for colon cancer screening after surgery Thank you so much for the opportunity to consult on your patient. GI team will follow the patient. In case of any questions or concerns please feel free to reach out. Plan discussed with Dr. Figueroa Assessment/Plan status post right colectomy , no new complaints, afebrile, abdomen soft, non distended, appropriately tender, denies nausea or vomiting, MICHAEL drain serous fluid tender passing gas, no BM, afebrile, Normal WBC Plan: patent to ambulate NPO except ICE chips continue IV hydration Continue IV antibiotics Prognosis: Excellent Plan discussed with patient, Dr. Abernathy Visit Coding Surgery Date of Service if different f: Aug 16, 2024 Billing Provider: ABIOLA ABERNATHY MD Surgery Visit Codes: [id number] INP/OBS CARE(HIGH) TERI MCBRIDE DNP Aug 16, 2024 09:15
[2024-08-16] MEDS ORDERED: POTASSIUM PHOSPHATE 44 MEQ in D5W 5% 250 ML IV ONE (10:00)
[2024-08-16] MEDS: POTASSIUM CHLORIDE 40 MEQ in D5W/LACTATED RINGERS 1,000 ML IV SCH (12:23)
[2024-08-17] VITALS (8 sets, daily range): BP systolic 110–129; BP diastolic 66–79; PULSE 94–125; RESP 16–18; TEMP 97.4–99.2; O2SAT 92–96
[2024-08-17 07:19] LABS: Alkaline Phosphatase 87 U/L (46-116); Carbon Dioxide 27 mmol/L (20-31)
[2024-08-17 07:20] LABS: Aspartate Aminotransferase 21 U/L (13-40); Basophils # (auto) 0 10 ^3/uL (0-0.2); Basophils % (auto) 0.3 % (0.0-2.0); Eosinophils # (auto) 0.1 10 ^3/uL (0-0.8); Eosinophils % (auto) 1.5 % (0.0-7.0); Hematocrit 26.3 % (36.0-46.0); Hemoglobin 8.4 g/dL (12.2-16.2); Lymphocytes # (auto) 0.6 10 ^3/uL (0.4-5.4); Lymphocytes % (auto) 10.7 % (10.0-50.0); Mean Corpuscular Hemoglobin 21.9 pg (28.0-32.0); Mean Corpuscular Hgb Conc. 31.9 g/dL (32.0-36.0); Mean Corpuscular Volume 68.6 fL (80.0-100.0); Monocytes # (auto) 0.4 10 ^3/uL (0-1.3); Monocytes % (auto) 7.8 % (0.0-12.0); Neutrophils # (auto) 4.2 10 ^3/uL (1.6-8.6); Neutrophils % (auto) 79.7 % (37.0-80.0); Platelet Count (auto) 304 10^3/uL (140-450); Red Blood Cells 3.84 10^6/uL (4.0-5.20); Red Cell Distribution Width 30.9 % (11.8-14.3); White Blood Cell 5.2 10^3/uL (4.4-10.8)
[2024-08-17 07:21] LABS: Bilirubin, Total 0.3 mg/dL (0.2-1.0)
[2024-08-17 07:22] LABS: Alanine Aminotransferase < 9 U/L (7-40); Albumin 2.7 g/dL (3.2-4.8); Blood Urea Nitrogen 7 mg/dL (9-23); Calcium 8.4 mg/dL (8.7-10.4); Glucose 136 mg/dL (74-106); Magnesium 1.5 mg/dL (1.6-2.6); Total Protein 5.2 g/dL (5.7-8.2)
[2024-08-17 07:25] LABS: Anion Gap 6 (5-15); Chloride 112 mmol/L (98-107); Potassium 3.5 mmol/L (3.5-5.1); Sodium 145 mmol/L (136-145)
[2024-08-17] MEDS: POTASSIUM PHOSPHATE 44 MEQ in D5W 5% 250 ML IV ONE (07:45)
--- NOTE | 2024-08-17 07:48 | DVHPN2 ---
Reviewed: Care Plan, H&P, Labs, Medications, Previous Orders, Radiology Changes from previous H/P or p: No Changes Objective Vitals Vital Signs Date Time Temp Pulse Resp B/P (MAP) Pulse Ox O2 Delivery O2 Flow Rate FiO2 08/17/24 05:00 98.6 112 18 117/66 (83) 94 98.6 08/16/24 20:00 Room Air* 0 21 Intake/Output Intake and Output 08/17/24 07:00 Intake Total 1940 ml Output Total 1110 ml Balance 830 ml Intake Oral 1190 ml IV Total 750 ml Output Urine Total 1050 ml Gastric Drainage Total 60 ml # Voids 3 Medications Current Medications Medications Dose Ordered Sig/Chris Route Start Time Stop Time Status Last Admin Dose Admin Sodium Chloride 10 ml Q8HR IV 08/06/24 22:00 08/17/24 06:00 10 ML Docusate Sodium 100 mg BIDPRN PRN PO 08/06/24 18:15 Acetaminophen 650 mg Q6HP PRN PO 08/06/24 18:15 08/06/24 19:39 650 MG Ondansetron HCl 4 mg Q4HP PRN IV 08/06/24 18:15 08/15/24 15:17 4 MG Ertapenem 1 gm/ Sodium Chloride 50 ml @ 100 mls/hr DAILY IV 08/09/24 10:00 08/16/24 12:07 100 MLS/HR Pantoprazole Sodium 40 mg DAILY IV 08/13/24 10:00 08/16/24 12:23 40 MG Amino Acids 0 ml @ 0 mls/hr PER PHARMACY IV 08/13/24 14:45 Amino Acids 1,000 ml @ 41 mls/hr DAILY@2200 IV 08/13/24 22:00 08/16/24 22:00 41 MLS/HR Diagnostic Test (Pha) 1 strip Q6HR 08/14/24 00:00 08/17/24 06:00 1 STRIP Insulin Human Regular FOLLOW SLIDING SCALE Q6HR SC 08/14/24 00:00 08/17/24 06:41 2 UNITS Dextrose 50 ml UD IV 08/13/24 22:00 Enteral Nutritional Formula 240 ml TIDWM PO 08/14/24 12:00 Hydromorphone HCl 0.5 mg Q6HPRN PRN IV 08/15/24 22:00 08/16/24 22:22 0.5 MG Potassium Chloride 40 meq/ Dextrose/Lactated Ringer's 1,020 ml @ 100 mls/hr [id number] IV 08/16/24 10:00 08/16/24 22:32 100 MLS/HR Laboratory Results Laboratory Tests 08/17/24 05:30 Chemistry Test 08/17/24 05:30 Albumin 2.7 g/dL (3.2-4.8) L Calcium Level 8.4 mg/dL (8.7-10.4) L Magnesium Level 1.5 mg/dL (1.6-2.6) L Phosphorus Level 1.0 mg/dL (2.4-5.1) L Total Protein 5.2 g/dL (5.7-8.2) L LFT Test 08/17/24 05:30 Alanine Aminotransferase (ALT) < 9 U/L (7-40) Alkaline Phosphatase 87 U/L (46-116) Aspartate Amino Transferase (AST) 21 U/L (13-40) Total Bilirubin 0.3 mg/dL (0.2-1.0) Urinalysis Test 08/06/24 14:55 Urine Color Dark yellow (Yellow) Urine Clarity Turbid (Clear) H Urine pH 8.0 (5.0-9.0) Urine Specific [place] 1.019 (1.001-1.035) Urine Protein 1+ (Negative) H Urine Ketones Negative (Negative) Urine Blood Negative /uL (Negative) Urine Nitrite 2+ (Negative) H Urine Bilirubin Negative (Negative) Urine Urobilinogen 2 mg/dL (Negative) H Urine Leukocyte Esterase 3+ /uL (Negative) Urine RBC 8 /hpf (0 - 4) Urine Microscopic WBC 58 /HPF (0-5) H Urine Squamous Epithelial Cells Few /hpf (<5) Urine Bacteria None seen /hpf (None Seen) Urine Mucus Few (None Seen) Urine Glucose Normal mg/dL (Normal) Microbiology Microbiology Date/Time Source Procedure Growth Status 08/07/24 06:30 Stool Clostridium difficile Toxin Assay - Final Complete 08/06/24 14:55 Voided Urine Urine Culture - Final Escherichia coli - ESBL Complete Labs and/or images reviewed: Labs reviewed by me, Image(s) reviewed by me Assessment/Plan Assessment/Plan 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 Wilkins possible malignancy, biopsy result shows adenocarcinoma Status post Laparoscopic right colectomy converted to open right colectomy by Dr Hicks on 08-12-24, postop day 3. Gastritis by EGD by Dr. Wilkins, biopsy result pending Acute urinary tract infection: Urine cultures growing Gram-negative rods, continue Rocephin History of anemia History of multiple blood transfusions Anemia hemoglobin 7.9: 1 unit RBC transfused during surgery hemoglobin now 9.8 Acute hypophosphatemia phosphorus 1.0, replace phosphorus, consult for Dr. Alvarez Hypomagnesemia magnesium 1.5, IV magnesium 2 g times one Physical therapy ordered Patient is feeling better Advanced diet as tolerated Nutrition supplement : Ensure, clinimix Continue current management Plan discussed with: Patient My Orders Orders - SHAWANDA TRAN MD Procedure Category Date Status Time D5w/Lactated PHA 08/16/24 In Process Ringer... W/Potassium 10:00 Complete Blood Count LAB 08/18/24 Verified 05:00 Complete Blood Count LAB 08/19/24 Verified 05:00 Complete Blood Count LAB 08/21/24 Verified 05:00 Complete Blood Count LAB 08/20/24 Verified 05:00 Comprehensive LAB 08/18/24 Verified Metabolic Panel 05:00 Comprehensive LAB 08/19/24 Verified Metabolic Panel 05:00 Comprehensive LAB 08/20/24 Verified Metabolic Panel 05:00 Comprehensive LAB 08/21/24 Verified Metabolic Panel 05:00 Potassium Phosphate PHA 08/17/24 Verified 07:45 Magnesium Slava PHA 08/17/24 Verified 08:00 *Dr. Alvarez Group CONS 08/17/24 Verified -[place] 07:39 Date of Service: Aug 17, 2024 Billing Provider: SHAWANDA TRAN MD Common Visit Codes: [id number] INP/OBS CARE(HIGH) SHAWANDA TRAN MD Aug 17, 2024 07:48
[2024-08-17] MEDS: MAGNESIUM SULFATE 1GM/100ML 100 ML IV SCH (08:00)
[2024-08-17] MEDS: IOHEXOL 300 MG/ML 100ML BOTTLE IJ ONE (10:13)
--- NOTE | 2024-08-17 10:34 | DVHINCON2 ---
Date of service: Aug 17, [address] parikh Reason for Consultation Hypophosphatemia History of Present Illness 49-year-old female presents to the hospital for evaluation of persistent anemia. Her imaging was notable for hepatic flexure obstructive mass. She was diagnosed with adenocarcinoma status post colonoscopy and surgery. Nephrology was consulted due to multiple electrolyte abnormalities including persistently low magnesium, phosphorus, potassium. Patient has been receiving IV replacement multiple times per day. Patient is currently on Clindamax. Patient is on continuous fluids. Allergies: Coded Allergies: NO KNOWN ALLERGIES (Unverified , 03/27/13) Home Meds Reported Medications Baclofen (Baclofen) 10 Mg Tab, 10 MG PO DAILY for 30 Days, MG 08/07/24 Ferrous Sulfate (Gnp Iron) 325 Mg Tab, 1 TAB PO 08/07/24 Cetirizine HCl (Cetirizine Hydrochloride) 10 Mg Tab, 1 TAB PO DAILY 06/19/24 Pantoprazole Sodium Sesquihydr (Pantoprazole Sodium Dr) 40 Mg Tab, 40 MG PO DAILY 06/19/24 Current Medications Current Medications Medications (Trade) Dose Ordered Sig/Chris Route PRN Reason Start Time Stop Time Status Last Admin Magnesium Sulfate/ Dextrose 100 ml @ 100 mls/hr Q1HR IV 08/17/24 08:00 08/17/24 09:59 DC Family History: Diabetes mellitus G8 MOTHER Hypercholesterolemia G8 MOTHER Review of Systems diarrhea cough and phelm H&P Exam Vital Signs/I&O Vital Sign Date Time Temp Pulse Resp B/P (MAP) Pulse Ox O2 Delivery O2 Flow Rate FiO2 08/17/24 09:00 98.3 100 16 111/77 (88) 95 98.3 08/16/24 20:00 Room Air* 0 21 Intake and Output 08/16/24 08/17/24 19:00 07:00 Intake Total 700 ml 1240 ml Output Total 560 ml 550 ml Balance 140 ml 690 ml Intake Oral 50 ml 1140 ml IV Total 650 ml 100 ml Output Urine Total 500 ml 550 ml Gastric Drainage Total 60 ml # Voids 3 Physical Exam elderly female appears malnutritioned rrr ntnd no edema Labs/Diagnostic Data Labs/Diagnostic Data Laboratory Tests Test 08/17/24 06:29 08/17/24 05:30 08/17/24 00:26 08/16/24 17:28 Range/Units POC Glucose 154 H 140 H 134 H 70-106 mg/dl White Blood Count 5.2 4.4-10.8 10^3/uL Red Blood Count 3.84 L 4.0-5.20 10^6/uL Hemoglobin 8.4 L 12.2-16.2 g/dL Hematocrit 26.3 L 36.0-46.0 % Mean Corpuscular Volume 68.6 L 80.0-100.0 fL Mean Corpuscular Hemoglobin 21.9 L 28.0-32.0 pg Mean Corpuscular Hemoglobin Concent 31.9 L 32.0-36.0 g/dL Red Cell Distribution Width 30.9 H 11.8-14.3 % Platelet Count 304 140-450 10^3/uL Mean Platelet Volume 8.5 6.9-10.8 fL Neutrophils (%) (Auto) 79.7 37.0-80.0 % Lymphocytes (%) (Auto) 10.7 10.0-50.0 % Monocytes (%) (Auto) 7.8 0.0-12.0 % Eosinophils (%) (Auto) 1.5 0.0-7.0 % Basophils (%) (Auto) 0.3 0.0-2.0 % Neutrophils # (Auto) 4.2 1.6-8.6 10 ^3/uL Lymphocytes # (Auto) 0.6 0.4-5.4 10 ^3/uL Monocytes # (Auto) 0.4 0-1.3 10 ^3/uL Eosinophils # (Auto) 0.1 0-0.8 10 ^3/uL Basophils # (Auto) 0 0-0.2 10 ^3/uL Nucleated Red Blood Cells 0.0 % Sodium Level 145 136-145 mmol/L Potassium Level 3.5 3.5-5.1 mmol/L Chloride Level 112 H 98-107 mmol/L Carbon Dioxide Level 27 20-31 mmol/L Anion Gap 6 5-15 Blood Urea Nitrogen 7 L 9-23 mg/dL Creatinine 0.25 L 0.550-1.02 mg/dL Glomerular Filtration Rate Calc 134 >90 mL/min BUN/Creatinine Ratio 28.0 H 10.0-20.0 Serum Glucose 136 H 74-106 mg/dL Calcium Level 8.4 L 8.7-10.4 mg/dL Phosphorus Level 1.0 L 2.4-5.1 mg/dL Magnesium Level 1.5 L 1.6-2.6 mg/dL Total Bilirubin 0.3 0.2-1.0 mg/dL Aspartate Amino Transferase (AST) 21 13-40 U/L Alanine Aminotransferase (ALT) < 9 7-40 U/L Alkaline Phosphatase 87 46-116 U/L Total Protein 5.2 L 5.7-8.2 g/dL Albumin 2.7 L 3.2-4.8 g/dL Vitamin D 25-Hydroxy 46.6 30.0-100 ng/mL Test 08/16/24 12:04 08/16/24 05:23 08/16/24 04:31 08/15/24 23:29 Range/Units POC Glucose 115 H 129 H 125 H 70-106 mg/dl White Blood Count 5.6 4.4-10.8 10^3/uL Red Blood Count 3.73 L 4.0-5.20 10^6/uL Hemoglobin 8.3 L 12.2-16.2 g/dL Hematocrit 25.5 #L 36.0-46.0 % Mean Corpuscular Volume 68.2 #L 80.0-100.0 fL Mean Corpuscular Hemoglobin 22.1 L 28.0-32.0 pg Mean Corpuscular Hemoglobin Concent 32.4 32.0-36.0 g/dL Red Cell Distribution Width 31.2 H 11.8-14.3 % Platelet Count 323 140-450 10^3/uL Mean Platelet Volume 8.3 6.9-10.8 fL Neutrophils (%) (Auto) 76.8 37.0-80.0 % Lymphocytes (%) (Auto) 13.7 10.0-50.0 % Monocytes (%) (Auto) 6.8 0.0-12.0 % Eosinophils (%) (Auto) 2.4 0.0-7.0 % Basophils (%) (Auto) 0.3 0.0-2.0 % Neutrophils # (Auto) 4.3 1.6-8.6 10 ^3/uL Lymphocytes # (Auto) 0.8 0.4-5.4 10 ^3/uL Monocytes # (Auto) 0.4 0-1.3 10 ^3/uL Eosinophils # (Auto) 0.1 0-0.8 10 ^3/uL Basophils # (Auto) 0 0-0.2 10 ^3/uL Nucleated Red Blood Cells 0.0 % Platelet Estimate Adequate Hypochromasia (manual) Slight Microcytosis Moderate Ovalocytes Few Jimenez Cells Few Sodium Level 146 H 136-145 mmol/L Potassium Level 3.1 L 3.5-5.1 mmol/L Chloride Level 113 H 98-107 mmol/L Carbon Dioxide Level 24 20-31 mmol/L Anion Gap 9 5-15 Blood Urea Nitrogen 8 L 9-23 mg/dL Creatinine 0.22 L 0.550-1.02 mg/dL Glomerular Filtration Rate Calc 138 >90 mL/min BUN/Creatinine Ratio 36.4 H 10.0-20.0 Serum Glucose 113 H 74-106 mg/dL Calcium Level 8.5 L 8.7-10.4 mg/dL Phosphorus Level 1.3 L 2.4-5.1 mg/dL Magnesium Level 1.7 1.6-2.6 mg/dL Total Bilirubin 0.3 0.2-1.0 mg/dL Aspartate Amino Transferase (AST) 12 L 13-40 U/L Alanine Aminotransferase (ALT) < 9 7-40 U/L Alkaline Phosphatase 74 46-116 U/L Total Protein 5.3 L 5.7-8.2 g/dL Albumin 2.8 L 3.2-4.8 g/dL Test 08/15/24 18:21 08/15/24 16:54 08/15/24 12:08 08/15/24 07:04 Range/Units Sodium Level 146 H 145 136-145 mmol/L Potassium Level 2.9 L 2.7 L 3.5-5.1 mmol/L Chloride Level 113 H 114 H 98-107 mmol/L Carbon Dioxide Level 22 20 20-31 mmol/L Anion Gap 11 11 5-15 Blood Urea Nitrogen 8 L < 5 L 9-23 mg/dL Creatinine 0.29 L 0.24 #L 0.550-1.02 mg/dL Glomerular Filtration Rate Calc 129 135 >90 mL/min BUN/Creatinine Ratio 27.6 H 20.8 H 10.0-20.0 Serum Glucose 128 H 120 H 74-106 mg/dL Calcium Level 8.4 L 8.4 L 8.7-10.4 mg/dL POC Glucose 129 H 140 H 70-106 mg/dl White Blood Count 5.6 4.4-10.8 10^3/uL Red Blood Count 3.88 L 4.0-5.20 10^6/uL Hemoglobin 8.7 L 12.2-16.2 g/dL Hematocrit 28.5 #L 36.0-46.0 % Mean Corpuscular Volume 73.4 L 80.0-100.0 fL Mean Corpuscular Hemoglobin 22.4 L 28.0-32.0 pg Mean Corpuscular Hemoglobin Concent 30.5 L 32.0-36.0 g/dL Red Cell Distribution Width 30.8 H 11.8-14.3 % Platelet Count 187 140-450 10^3/uL Mean Platelet Volume 8.2 6.9-10.8 fL Neutrophils (%) (Auto) 73.5 37.0-80.0 % Lymphocytes (%) (Auto) 14.5 10.0-50.0 % Monocytes (%) (Auto) 8.0 0.0-12.0 % Eosinophils (%) (Auto) 3.6 0.0-7.0 % Basophils (%) (Auto) 0.4 0.0-2.0 % Neutrophils # (Auto) 4.1 1.6-8.6 10 ^3/uL Lymphocytes # (Auto) 0.8 0.4-5.4 10 ^3/uL Monocytes # (Auto) 0.4 0-1.3 10 ^3/uL Eosinophils # (Auto) 0.2 0-0.8 10 ^3/uL Basophils # (Auto) 0 0-0.2 10 ^3/uL Nucleated Red Blood Cells 0.1 % Platelet Estimate Adequate Hypochromasia (manual) Slight Microcytosis Moderate Ovalocytes Few Jimenez Cells Moderate Phosphorus Level 1.5 L 2.4-5.1 mg/dL Magnesium Level 1.8 1.6-2.6 mg/dL Total Bilirubin 0.3 0.2-1.0 mg/dL Aspartate Amino Transferase (AST) 17 13-40 U/L Alanine Aminotransferase (ALT) < 9 7-40 U/L Alkaline Phosphatase 75 46-116 U/L Total Protein 5.5 L 5.7-8.2 g/dL Albumin 2.8 L 3.2-4.8 g/dL Triglycerides Level 131 < 150 mg/dL Test 08/14/24 23:24 08/14/24 17:31 08/14/24 12:52 08/14/24 05:53 Range/Units POC Glucose 121 H 128 H 114 H 118 H 70-106 mg/dl Test 08/14/24 04:55 08/13/24 23:43 08/13/24 08:03 08/12/24 06:43 Range/Units Sodium Level 147 H 146 H 142 136-145 mmol/L Potassium Level 3.2 L 3.6 3.4 L 3.5-5.1 mmol/L Chloride Level 118 H 117 H 112 H 98-107 mmol/L Carbon Dioxide Level 17 L 15 L 19 L 20-31 mmol/L Anion Gap 12 14 11 5-15 Blood Urea Nitrogen < 5 L < 5 L < 5 L 9-23 mg/dL Creatinine 0.36 L 0.38 L 0.37 L 0.550-1.02 mg/dL Glomerular Filtration Rate Calc 123 121 122 >90 mL/min BUN/Creatinine Ratio 13.9 13.2 13.5 10.0-20.0 Serum Glucose 132 H 78 71 L 74-106 mg/dL Calcium Level 8.5 L 8.3 L 8.2 L 8.7-10.4 mg/dL Phosphorus Level 2.1 L 2.4-5.1 mg/dL Magnesium Level 1.8 1.6-2.6 mg/dL Total Bilirubin 0.2 0.3 0.2-1.0 mg/dL Aspartate Amino Transferase (AST) 18 21 13-40 U/L Alanine Aminotransferase (ALT) 9 11 7-40 U/L Alkaline Phosphatase 83 87 46-116 U/L Total Protein 5.7 5.6 L 5.7-8.2 g/dL Albumin 3.0 L 2.9 L 3.2-4.8 g/dL POC Glucose 106 70-106 mg/dl White Blood Count 6.0 6.2 4.4-10.8 10^3/uL Red Blood Count 4.50 3.94 L 4.0-5.20 10^6/uL Hemoglobin 9.8 #L 7.9 L 12.2-16.2 g/dL Hematocrit 31.8 #L 25.5 L 36.0-46.0 % Mean Corpuscular Volume 70.7 #L 64.8 L 80.0-100.0 fL Mean Corpuscular Hemoglobin 21.7 L 20.0 L 28.0-32.0 pg Mean Corpuscular Hemoglobin Concent 30.7 L 30.8 L 32.0-36.0 g/dL Red Cell Distribution Width 31.1 H 28.2 H 11.8-14.3 % Platelet Count 432 443 140-450 10^3/uL Mean Platelet Volume 8.2 8.1 6.9-10.8 fL Neutrophils (%) (Auto) 84.8 H 74.9 37.0-80.0 % Lymphocytes (%) (Auto) 9.9 L 14.4 10.0-50.0 % Monocytes (%) (Auto) 4.9 8.5 0.0-12.0 % Eosinophils (%) (Auto) 0.3 1.9 0.0-7.0 % Basophils (%) (Auto) 0.1 0.3 0.0-2.0 % Neutrophils # (Auto) 5.1 4.7 1.6-8.6 10 ^3/uL Lymphocytes # (Auto) 0.6 0.9 0.4-5.4 10 ^3/uL Monocytes # (Auto) 0.3 0.5 0-1.3 10 ^3/uL Eosinophils # (Auto) 0 0.1 0-0.8 10 ^3/uL Basophils # (Auto) 0 0 0-0.2 10 ^3/uL Nucleated Red Blood Cells 0.0 0.1 % Platelet Estimate Adequate Hypochromasia (manual) Slight Anisocytosis (manual) Moderate Microcytosis Slight Ovalocytes Few Jimenez Cells Moderate Schistocytes Few Prothrombin Time 11.8 9.3-11.8 sec Prothrombin Time INR 1.13 0.9-1.15 Activated Partial Thromboplast Time 25.1 24.5-34.5 SEC Test 08/11/24 07:38 08/10/24 04:37 08/09/24 05:06 08/08/24 05:44 Range/Units White Blood Count 6.0 6.0 6.2 6.1 4.4-10.8 10^3/uL Red Blood Count 3.89 L 4.05 3.91 L 3.84 L 4.0-5.20 10^6/uL Hemoglobin 7.6 L 8.1 L 7.6 L 7.4 L 12.2-16.2 g/dL Hematocrit 24.7 L 25.8 L 25.0 L 24.4 L 36.0-46.0 % Mean Corpuscular Volume 63.7 L 63.7 L 63.8 L 63.5 L 80.0-100.0 fL Mean Corpuscular Hemoglobin 19.6 L 20.1 L 19.5 L 19.3 L 28.0-32.0 pg Mean Corpuscular Hemoglobin Concent 30.8 L 31.5 L 30.5 L 30.3 L 32.0-36.0 g/dL Red Cell Distribution Width 28.3 H 28.5 H 28.7 H 28.5 H 11.8-14.3 % Platelet Count 505 H 498 H 501 H 537 H 140-450 10^3/uL Mean Platelet Volume 8.3 8.1 8.1 8.2 6.9-10.8 fL Neutrophils (%) (Auto) 73.5 71.8 72.5 74.8 37.0-80.0 % Lymphocytes (%) (Auto) 16.5 18.5 17.2 15.8 10.0-50.0 % Monocytes (%) (Auto) 8.4 8.1 9.0 8.3 0.0-12.0 % Eosinophils (%) (Auto) 1.4 1.4 1.1 0.9 0.0-7.0 % Basophils (%) (Auto) 0.2 0.2 0.2 0.2 0.0-2.0 % Neutrophils # (Auto) 4.4 4.3 4.5 4.6 1.6-8.6 10 ^3/uL Lymphocytes # (Auto) 1.0 1.1 1.1 1.0 0.4-5.4 10 ^3/uL Monocytes # (Auto) 0.5 0.5 0.6 0.5 0-1.3 10 ^3/uL Eosinophils # (Auto) 0.1 0.1 0.1 0.1 0-0.8 10 ^3/uL Basophils # (Auto) 0 0 0 0 0-0.2 10 ^3/uL Nucleated Red Blood Cells 0.0 0.0 0.0 0.0 % Sodium Level 143 143 144 140 136-145 mmol/L Potassium Level 3.3 L 3.3 L 3.7 3.5 3.5-5.1 mmol/L Chloride Level 109 H 109 H 113 H 108 H 98-107 mmol/L Carbon Dioxide Level 20 25 23 23 20-31 mmol/L Anion Gap 14 9 8 9 5-15 Blood Urea Nitrogen < 5 L < 5 L 6 L 9 9-23 mg/dL Creatinine 0.32 L 0.40 L 0.40 L 0.41 L 0.550-1.02 mg/dL Glomerular Filtration Rate Calc 126 120 120 119 >90 mL/min BUN/Creatinine Ratio 15.6 12.5 15.0 22.0 H 10.0-20.0 Serum Glucose 56 L 74 72 L 74 74-106 mg/dL Calcium Level 8.3 L 8.4 L 8.3 L 7.9 L 8.7-10.4 mg/dL Total Bilirubin 0.3 0.3 0.2 0.2 0.2-1.0 mg/dL Aspartate Amino Transferase (AST) 22 22 23 18 13-40 U/L Alanine Aminotransferase (ALT) 10 13 10 11 7-40 U/L Alkaline Phosphatase 91 102 87 93 46-116 U/L Total Protein 5.6 L 5.6 L 5.2 L 5.4 L 5.7-8.2 g/dL Albumin 2.9 L 3.0 L 2.7 L 2.9 L 3.2-4.8 g/dL Carcinoembryonic Antigen 1.24 <=5.0 ng/mL Platelet Estimate Increased Hypochromasia (manual) Moderate Anisocytosis (manual) Slight Microcytosis Moderate Test 08/07/24 06:30 08/07/24 05:35 08/06/24 14:55 08/06/24 11:27 Range/Units Stool Occult Blood Positive Negative Stool Occult Blood Sample #3 Negative White Blood Count 7.6 # 4.4-10.8 10^3/uL Red Blood Count 3.91 L 4.0-5.20 10^6/uL Hemoglobin 7.7 #L 12.2-16.2 g/dL Hematocrit 24.8 #L 36.0-46.0 % Mean Corpuscular Volume 63.4 L 80.0-100.0 fL Mean Corpuscular Hemoglobin 19.6 L 28.0-32.0 pg Mean Corpuscular Hemoglobin Concent 31.0 L 32.0-36.0 g/dL Red Cell Distribution Width 28.1 H 11.8-14.3 % Platelet Count 550 H 140-450 10^3/uL Mean Platelet Volume 8.3 6.9-10.8 fL Neutrophils (%) (Auto) 82.3 H 37.0-80.0 % Lymphocytes (%) (Auto) 11.1 10.0-50.0 % Monocytes (%) (Auto) 6.2 0.0-12.0 % Eosinophils (%) (Auto) 0.2 0.0-7.0 % Basophils (%) (Auto) 0.2 0.0-2.0 % Neutrophils # (Auto) 6.2 1.6-8.6 10 ^3/uL Lymphocytes # (Auto) 0.8 0.4-5.4 10 ^3/uL Monocytes # (Auto) 0.5 0-1.3 10 ^3/uL Eosinophils # (Auto) 0 0-0.8 10 ^3/uL Basophils # (Auto) 0 0-0.2 10 ^3/uL Nucleated Red Blood Cells 0.0 % Sodium Level 139 136-145 mmol/L Potassium Level 3.8 3.5-5.1 mmol/L Chloride Level 108 H 98-107 mmol/L Carbon Dioxide Level 23 20-31 mmol/L Anion Gap 8 5-15 Blood Urea Nitrogen 13 9-23 mg/dL Creatinine 0.42 #L 0.550-1.02 mg/dL Glomerular Filtration Rate Calc 118 >90 mL/min BUN/Creatinine Ratio 31.0 H 10.0-20.0 Serum Glucose 86 74-106 mg/dL Calcium Level 7.9 L 8.7-10.4 mg/dL Total Bilirubin 0.2 0.2-1.0 mg/dL Aspartate Amino Transferase (AST) 23 13-40 U/L Alanine Aminotransferase (ALT) 12 7-40 U/L Alkaline Phosphatase 93 46-116 U/L Total Protein 5.6 L 5.7-8.2 g/dL Albumin 3.0 L 3.2-4.8 g/dL Urine Color Dark yellow Yellow Urine Clarity Turbid H Clear Urine pH 8.0 5.0-9.0 Urine Specific [place] 1.019 1.001-1.035 Urine Protein 1+ H Negative Urine Ketones Negative Negative Urine Blood Negative Negative /uL Urine Nitrite 2+ H Negative Urine Bilirubin Negative Negative Urine Urobilinogen 2 H Negative mg/dL Urine Leukocyte Esterase 3+ Negative /uL Urine RBC 8 0 - 4 /hpf Urine Microscopic WBC 58 H 0-5 /HPF Urine Squamous Epithelial Cells Few <5 /hpf Urine Bacteria None seen None Seen /hpf Urine Mucus Few None Seen Urine Glucose Normal Normal mg/dL Troponin I High Sensitivity < 3 L </=34 ng/L Beta HCG, Quantitative 2.0 1.5-4.2 mIU/mL Test 08/06/24 10:35 08/06/24 10:32 08/06/24 10:02 Range/Units POC Glucose 135 H 106 70-106 mg/dl White Blood Count 10.8 4.4-10.8 10^3/uL Red Blood Count 4.61 4.0-5.20 10^6/uL Hemoglobin 9.1 L 12.2-16.2 g/dL Hematocrit 29.4 L 36.0-46.0 % Mean Corpuscular Volume 63.8 L 80.0-100.0 fL Mean Corpuscular Hemoglobin 19.7 L 28.0-32.0 pg Mean Corpuscular Hemoglobin Concent 30.9 L 32.0-36.0 g/dL Red Cell Distribution Width 28.3 H 11.8-14.3 % Platelet Count 680 H 140-450 10^3/uL Mean Platelet Volume 8.3 6.9-10.8 fL Neutrophils (%) (Auto) 85.7 H 37.0-80.0 % Lymphocytes (%) (Auto) 9.8 L 10.0-50.0 % Monocytes (%) (Auto) 4.2 0.0-12.0 % Eosinophils (%) (Auto) 0.2 0.0-7.0 % Basophils (%) (Auto) 0.1 0.0-2.0 % Neutrophils # (Auto) 9.3 H 1.6-8.6 10 ^3/uL Lymphocytes # (Auto) 1.1 0.4-5.4 10 ^3/uL Monocytes # (Auto) 0.5 0-1.3 10 ^3/uL Eosinophils # (Auto) 0 0-0.8 10 ^3/uL Basophils # (Auto) 0 0-0.2 10 ^3/uL Nucleated Red Blood Cells 0.0 % Platelet Estimate Increased Hypochromasia (manual) Moderate Anisocytosis (manual) Moderate Microcytosis Moderate Ovalocytes Few Prothrombin Time 11.0 9.3-11.8 sec Prothrombin Time INR 1.04 0.9-1.15 Activated Partial Thromboplast Time 23.6 L 24.5-34.5 SEC Sodium Level 137 136-145 mmol/L Potassium Level 4.1 3.5-5.1 mmol/L Chloride Level 102 98-107 mmol/L Carbon Dioxide Level 23 20-31 mmol/L Anion Gap 12 5-15 Blood Urea Nitrogen 15 9-23 mg/dL Creatinine 0.65 0.550-1.02 mg/dL Glomerular Filtration Rate Calc 107 >90 mL/min BUN/Creatinine Ratio 23.1 H 10.0-20.0 Serum Glucose 140 H 74-106 mg/dL Calcium Level 9.2 8.7-10.4 mg/dL Troponin I High Sensitivity < 3 L </=34 ng/L B-Type Natriuretic Peptide 10.57 0-100 pg/mL Microbiology Date/Time Source Procedure Growth Status 08/07/24 06:30 Stool Clostridium difficile Toxin Assay - Final Complete 08/06/24 14:55 Voided Urine Urine Culture - Final Escherichia coli - ESBL Complete Assessment Preserved renal function Hypophosphatemia due to decreased intestinal absorption rule out vitamin-D resistance Hypokalemia Hypomagnesemia Unlikely Fanconi syndrome//renal tubular acidosis Continue with aggressive electrolyte replacement per day. Transitioned to oral when able prefer when as safely possible Avoid hypotension Strict Is&Os Plan discussed with: Patient ESTEBAN RIZVI MD Aug 17, 2024 10:34
--- NOTE | 2024-08-17 11:57 | DVHPN2 ---
Progress Note Date Seen: Aug 17, 2024 Medical Necessity Reason Pt with a Central, PICC or Fol: No Objective vital signs Vital Sign Date Time Temp Pulse Resp B/P (MAP) Pulse Ox O2 Delivery O2 Flow Rate FiO2 08/17/24 09:00 98.3 100 16 111/77 (88) 95 98.3 08/16/24 20:00 Room Air* 0 21 Total Intake and Output 08/16/24 08/16/24 08/17/24 15:00 23:00 07:00 Intake Total 650 ml 290 ml 1000 ml Output Total 540 ml 20 ml 550 ml Balance 110 ml 270 ml 450 ml medications Current Medications Medications Dose Ordered Sig/Chris Route Start Time Stop Time Status Last Admin Dose Admin Sodium Chloride 10 ml Q8HR IV 08/06/24 22:00 08/17/24 06:00 10 ML Docusate Sodium 100 mg BIDPRN PRN PO 08/06/24 18:15 Acetaminophen 650 mg Q6HP PRN PO 08/06/24 18:15 08/06/24 19:39 650 MG Ondansetron HCl 4 mg Q4HP PRN IV 08/06/24 18:15 08/15/24 15:17 4 MG Ertapenem 1 gm/ Sodium Chloride 50 ml @ 100 mls/hr DAILY IV 08/09/24 10:00 08/17/24 10:04 100 MLS/HR Pantoprazole Sodium 40 mg DAILY IV 08/13/24 10:00 08/17/24 10:04 40 MG Amino Acids 0 ml @ 0 mls/hr PER PHARMACY IV 08/13/24 14:45 Amino Acids 1,000 ml @ 41 mls/hr DAILY@2200 IV 08/13/24 22:00 08/17/24 21:59 08/16/24 22:00 41 MLS/HR Diagnostic Test (Pha) 1 strip Q6HR 08/14/24 00:00 08/17/24 06:00 1 STRIP Insulin Human Regular FOLLOW SLIDING SCALE Q6HR SC 08/14/24 00:00 08/17/24 06:41 2 UNITS Dextrose 50 ml UD IV 08/13/24 22:00 Enteral Nutritional Formula 240 ml TIDWM PO 08/14/24 12:00 Hydromorphone HCl 0.5 mg Q6HPRN PRN IV 08/15/24 22:00 08/16/24 22:22 0.5 MG Potassium Chloride 40 meq/ Dextrose/Lactated Ringer's 1,020 ml @ 100 mls/hr [id number] IV 08/16/24 10:00 08/16/24 22:32 100 MLS/HR Guaifenesin 200 mg Q6HP PRN PO 08/17/24 11:15 Amino Acids/ Electrolytes/ Dextrose 1,000 ml @ 41 mls/hr DAILY@2200 IV 08/17/24 22:00 Cancel Amino Acids/ Electrolytes/ Dextrose 2,000 ml @ 41 mls/hr DAILY@2200 IV 08/17/24 22:00 laboratory and microbiology Laboratory Tests 08/17/24 05:30 Test 08/17/24 05:30 Range/Units Serum Glucose 136 H 74-106 mg/dL Problem List/Assessment/Plan Problem List/Assessment/Plan 08/17/24 doing well resumed bowel activity, wound clean and well approximated, MICHAEL drainage serous, labs OKstart po intake Plan discussed with: Patient, Spouse Dietary Evaluation Review Comments: 1) If patient remains NPO > 7 days, increase TPN to meet at least 75% of estimated needs 2) Advance to regular diet as medically feasible, pending OFFENSIVE COORDINATOR approval. Continue Ensure Enlive tid as previously ordered. Oral nutrition supplements provide 350 kcal and 20g Pro per 8 fl oz. 3) F/u with gastroenterology and oncology 4) Continue to monitor I&O, labs, and skin integrity. Oral nutrition supplements meet increased protein needs Expected Outcomes/Goals: 1) appetite and labs to improve 2) diet to advance 3) f/u in 2-3 days ABIOLA KING MD Aug 17, 2024 11:57
[2024-08-17] MEDS: guaiFENesin 200 MG/10 ML UD PO PRN (12:01)
[2024-08-17] MEDS: AMINO ACID INFUSION IN D10W 2,000 ML IV SCH (21:28)
[2024-08-17] MEDS ORDERED: AMINO ACID INFUSION IN D10W 1,000 ML IV SCH (22:00)
--- NOTE | 2024-08-17 22:27 | DVHPN2 ---
Progress Note - Dictate Date Seen: Aug 17, 2024 Medical Necessity Reason Pt with a Central, PICC or Fol: No vital signs Vital Sign Date Time Temp Pulse Resp B/P (MAP) Pulse Ox O2 Delivery O2 Flow Rate FiO2 08/17/24 21:29 98.5 08/17/24 21:00 94 18 110/71 (84) 96 08/17/24 20:00 Room Air* 0 21 Total Intake and Output 08/16/24 08/16/24 08/17/24 15:00 23:00 07:00 Intake Total 650 ml 290 ml 1000 ml Output Total 540 ml 20 ml 550 ml Balance 110 ml 270 ml 450 ml medications Current Medications Medications Dose Ordered Sig/Chris Route Start Time Stop Time Status Last Admin Dose Admin Sodium Chloride 10 ml Q8HR IV 08/06/24 22:00 08/17/24 21:36 10 ML Docusate Sodium 100 mg BIDPRN PRN PO 08/06/24 18:15 Acetaminophen 650 mg Q6HP PRN PO 08/06/24 18:15 08/17/24 20:29 650 MG Ondansetron HCl 4 mg Q4HP PRN IV 08/06/24 18:15 08/15/24 15:17 4 MG Ertapenem 1 gm/ Sodium Chloride 50 ml @ 100 mls/hr DAILY IV 08/09/24 10:00 08/17/24 10:04 100 MLS/HR Pantoprazole Sodium 40 mg DAILY IV 08/13/24 10:00 08/17/24 10:04 40 MG Amino Acids 0 ml @ 0 mls/hr PER PHARMACY IV 08/13/24 14:45 Diagnostic Test (Pha) 1 strip Q6HR 08/14/24 00:00 08/17/24 17:49 1 STRIP Insulin Human Regular FOLLOW SLIDING SCALE Q6HR SC 08/14/24 00:00 08/17/24 06:41 2 UNITS Dextrose 50 ml UD IV 08/13/24 22:00 Enteral Nutritional Formula 240 ml TIDWM PO 08/14/24 12:00 08/17/24 18:09 240 ML Hydromorphone HCl 0.5 mg Q6HPRN PRN IV 08/15/24 22:00 08/16/24 22:22 0.5 MG Potassium Chloride 40 meq/ Dextrose/Lactated Ringer's 1,020 ml @ 100 mls/hr [id number] IV 08/16/24 10:00 08/17/24 06:24 100 MLS/HR Guaifenesin 200 mg Q6HP PRN PO 08/17/24 11:15 08/17/24 18:14 200 MG Amino Acids/ Electrolytes/ Dextrose 1,000 ml @ 41 mls/hr DAILY@2200 IV 08/17/24 22:00 Cancel Amino Acids/ Electrolytes/ Dextrose 2,000 ml @ 41 mls/hr DAILY@2200 IV 08/17/24 22:00 08/17/24 21:28 41 MLS/HR laboratory and microbiology Laboratory Tests 08/17/24 05:30 Test 08/17/24 05:30 Range/Units Serum Glucose 136 H 74-106 mg/dL Prognosis Pt had 2 BMs; started soft diet Ambulation and PT Check pathology Dietary Evaluation Review Comments: 1) If patient remains NPO > 7 days, increase TPN to meet at least 75% of estimated needs 2) Advance to regular diet as medically feasible, pending [employer] approval. Continue Ensure Enlive tid as previously ordered. Oral nutrition supplements provide 350 kcal and 20g Pro per 8 fl oz. 3) F/u with gastroenterology and oncology 4) Continue to monitor I&O, labs, and skin integrity. Oral nutrition supplements meet increased protein needs Expected Outcomes/Goals: 1) appetite and labs to improve 2) diet to advance 3) f/u in 2-3 days Plan discussed with: Patient, Other (Nurse) SHREE VERDIN MD Aug 17, 2024 22:27
[2024-08-18] VITALS (8 sets, daily range): BP systolic 103–135; BP diastolic 45–82; PULSE 80–112; RESP 18–20; TEMP 97.9–98.9; O2SAT 92–98
[2024-08-18 05:46] LABS: Basophils # (auto) 0 10 ^3/uL (0-0.2); Basophils % (auto) 0.4 % (0.0-2.0); Eosinophils # (auto) 0.1 10 ^3/uL (0-0.8); Eosinophils % (auto) 3.1 % (0.0-7.0); Hematocrit 25.9 % (36.0-46.0); Hemoglobin 8.2 g/dL (12.2-16.2); Lymphocytes # (auto) 0.7 10 ^3/uL (0.4-5.4); Lymphocytes % (auto) 15.4 % (10.0-50.0); Mean Corpuscular Hgb Conc. 31.8 g/dL (32.0-36.0); Mean Corpuscular Volume 69.2 fL (80.0-100.0); Monocytes # (auto) 0.4 10 ^3/uL (0-1.3); Neutrophils # (auto) 3.4 10 ^3/uL (1.6-8.6); Neutrophils % (auto) 72.1 % (37.0-80.0); Nucleated Red Blood Cells % 0.1 %; Platelet Count (auto) 313 10^3/uL (140-450); Red Blood Cells 3.74 10^6/uL (4.0-5.20); Red Cell Distribution Width 30.9 % (11.8-14.3); White Blood Cell 4.7 10^3/uL (4.4-10.8)
[2024-08-18 06:05] LABS: Alanine Aminotransferase 20 U/L (7-40); Alkaline Phosphatase 109 U/L (46-116); Anion Gap 6 (5-15); BUN/Creatinine Ratio 28.6 (10.0-20.0); Bilirubin, Total 0.3 mg/dL (0.2-1.0); Carbon Dioxide 28 mmol/L (20-31); Potassium 3.8 mmol/L (3.5-5.1)
[2024-08-18 06:20] LABS: Chloride 111 mmol/L (98-107); Glucose 119 mg/dL (74-106); Sodium 145 mmol/L (136-145)
[2024-08-18 06:21] LABS: Albumin 2.8 g/dL (3.2-4.8); Aspartate Aminotransferase 55 U/L (13-40); Blood Urea Nitrogen 6 mg/dL (9-23); Calcium 8.4 mg/dL (8.7-10.4); Phosphorus 2.3 mg/dL (2.4-5.1); Total Protein 5.3 g/dL (5.7-8.2)
--- NOTE | 2024-08-18 08:48 | DVHPN2 ---
Reviewed: Care Plan, H&P, Labs, Medications, Previous Orders, Radiology Changes from previous H/P or p: No Changes Objective Vitals Vital Signs Date Time Temp Pulse Resp B/P (MAP) Pulse Ox O2 Delivery O2 Flow Rate FiO2 08/18/24 08:32 98.6 80 20 135/80 (98) 98 98.6 08/17/24 20:00 Room Air* 0 21 Intake/Output Intake and Output 08/18/24 07:00 Intake Total 950 ml Output Total 960 ml Balance -10 ml Intake Oral 700 ml IV Total 250 ml Output Urine Total 950 ml Gastric Drainage Total 10 ml # Bowel Movements 4 Medications Current Medications Medications Dose Ordered Sig/Chris Route Start Time Stop Time Status Last Admin Dose Admin Sodium Chloride 10 ml Q8HR IV 08/06/24 22:00 08/18/24 05:17 10 ML Docusate Sodium 100 mg BIDPRN PRN PO 08/06/24 18:15 Acetaminophen 650 mg Q6HP PRN PO 08/06/24 18:15 08/17/24 20:29 650 MG Ondansetron HCl 4 mg Q4HP PRN IV 08/06/24 18:15 08/15/24 15:17 4 MG Ertapenem 1 gm/ Sodium Chloride 50 ml @ 100 mls/hr DAILY IV 08/09/24 10:00 08/17/24 10:04 100 MLS/HR Pantoprazole Sodium 40 mg DAILY IV 08/13/24 10:00 08/17/24 10:04 40 MG Amino Acids 0 ml @ 0 mls/hr PER PHARMACY IV 08/13/24 14:45 Diagnostic Test (Pha) 1 strip Q6HR 08/14/24 00:00 08/18/24 05:40 1 STRIP Insulin Human Regular FOLLOW SLIDING SCALE Q6HR SC 08/14/24 00:00 08/17/24 06:41 2 UNITS Dextrose 50 ml UD IV 08/13/24 22:00 Enteral Nutritional Formula 240 ml TIDWM PO 08/14/24 12:00 08/17/24 18:09 240 ML Hydromorphone HCl 0.5 mg Q6HPRN PRN IV 08/15/24 22:00 08/16/24 22:22 0.5 MG Potassium Chloride 40 meq/ Dextrose/Lactated Ringer's 1,020 ml @ 100 mls/hr [id number] IV 08/16/24 10:00 08/18/24 02:48 100 MLS/HR Guaifenesin 200 mg Q6HP PRN PO 08/17/24 11:15 08/17/24 18:14 200 MG Amino Acids/ Electrolytes/ Dextrose 1,000 ml @ 41 mls/hr DAILY@2200 IV 08/17/24 22:00 Cancel Amino Acids/ Electrolytes/ Dextrose 2,000 ml @ 41 mls/hr DAILY@2200 IV 08/17/24 22:00 08/17/24 21:28 41 MLS/HR Laboratory Results Laboratory Tests 08/18/24 04:51 Chemistry Test 08/18/24 04:51 Albumin 2.8 g/dL (3.2-4.8) L Calcium Level 8.4 mg/dL (8.7-10.4) L Magnesium Level 2.0 mg/dL (1.6-2.6) Phosphorus Level 2.3 mg/dL (2.4-5.1) L Total Protein 5.3 g/dL (5.7-8.2) L LFT Test 08/18/24 04:51 Alanine Aminotransferase (ALT) 20 U/L (7-40) Alkaline Phosphatase 109 U/L (46-116) Aspartate Amino Transferase (AST) 55 U/L (13-40) H Total Bilirubin 0.3 mg/dL (0.2-1.0) Urinalysis Test 08/06/24 14:55 Urine Color Dark yellow (Yellow) Urine Clarity Turbid (Clear) H Urine pH 8.0 (5.0-9.0) Urine Specific [place] 1.019 (1.001-1.035) Urine Protein 1+ (Negative) H Urine Ketones Negative (Negative) Urine Blood Negative /uL (Negative) Urine Nitrite 2+ (Negative) H Urine Bilirubin Negative (Negative) Urine Urobilinogen 2 mg/dL (Negative) H Urine Leukocyte Esterase 3+ /uL (Negative) Urine RBC 8 /hpf (0 - 4) Urine Microscopic WBC 58 /HPF (0-5) H Urine Squamous Epithelial Cells Few /hpf (<5) Urine Bacteria None seen /hpf (None Seen) Urine Mucus Few (None Seen) Urine Glucose Normal mg/dL (Normal) Microbiology Microbiology Date/Time Source Procedure Growth Status 08/07/24 06:30 Stool Clostridium difficile Toxin Assay - Final Complete 08/06/24 14:55 Voided Urine Urine Culture - Final Escherichia coli - ESBL Complete Labs and/or images reviewed: Labs reviewed by me, Image(s) reviewed by me Assessment/Plan Assessment/Plan 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 Wilkins, biopsy result shows adenocarcinoma Status post Laparoscopic right colectomy converted to open right colectomy by Dr Hicks on 08-12-24, Gastritis by EGD by Dr. Wilkins, Acute urinary tract infection: Urine cultures growing Gram-negative rods, continue Rocephin History of anemia History of multiple blood transfusions Anemia hemoglobin 7.9: 1 unit RBC transfused during surgery hemoglobin now 9.8 Acute hypophosphatemia phosphorus 1.0, replace phosphorus, consult by Dr Langston appreciated Hypomagnesemia magnesium 1.5, IV magnesium 2 g times one Severe hypoalbuminemia albumin 2.8: Albumin transfusion Physical therapy ordered Patient is feeling better Advanced diet as tolerated Nutrition supplement : Ensure, clinimix Continue current management Physical therapy ordered Plan discussed with: Patient Date of Service: Aug 18, 2024 Billing Provider: SHAWANDA TRAN MD Common Visit Codes: [id number] INP/OBS CARE(HIGH) Secondary Visit Codes: [id number] CARE PLAN 30 MINUTES SHAWANDA TRAN MD Aug 18, 2024 08:48
[2024-08-18] MEDS: ALBUMIN 25% 100 ML IV SCH (12:01)
--- NOTE | 2024-08-18 13:34 | DVHPN2 ---
Progress Note Date Seen: Aug 18, 2024 Medical Necessity Reason Pt with a Central, PICC or Fol: Yes The following are medically ne: Tejada Catheter Subjective Patient reports: Feels better Objective vital signs Vital Sign Date Time Temp Pulse Resp B/P (MAP) Pulse Ox O2 Delivery O2 Flow Rate FiO2 08/18/24 12:33 98.9 104 20 118/76 (90) 96 98.9 08/18/24 08:00 Room Air* 0 21 Total Intake and Output 08/17/24 08/17/24 08/18/24 15:00 23:00 07:00 Intake Total 450 ml 500 ml Output Total 550 ml 410 ml Balance 450 ml -50 ml -410 ml medications Current Medications Medications Dose Ordered Sig/Chris Route Start Time Stop Time Status Last Admin Dose Admin Sodium Chloride 10 ml Q8HR IV 08/06/24 22:00 08/18/24 05:17 10 ML Docusate Sodium 100 mg BIDPRN PRN PO 08/06/24 18:15 Acetaminophen 650 mg Q6HP PRN PO 08/06/24 18:15 08/17/24 20:29 650 MG Ondansetron HCl 4 mg Q4HP PRN IV 08/06/24 18:15 08/15/24 15:17 4 MG Ertapenem 1 gm/ Sodium Chloride 50 ml @ 100 mls/hr DAILY IV 08/09/24 10:00 08/18/24 12:05 100 MLS/HR Pantoprazole Sodium 40 mg DAILY IV 08/13/24 10:00 08/18/24 11:43 40 MG Amino Acids 0 ml @ 0 mls/hr PER PHARMACY IV 08/13/24 14:45 Diagnostic Test (Pha) 1 strip Q6HR 08/14/24 00:00 08/18/24 12:07 1 STRIP Insulin Human Regular FOLLOW SLIDING SCALE Q6HR SC 08/14/24 00:00 08/17/24 06:41 2 UNITS Dextrose 50 ml UD IV 08/13/24 22:00 Enteral Nutritional Formula 240 ml TIDWM PO 08/14/24 12:00 08/18/24 12:07 240 ML Hydromorphone HCl 0.5 mg Q6HPRN PRN IV 08/15/24 22:00 08/16/24 22:22 0.5 MG Guaifenesin 200 mg Q6HP PRN PO 08/17/24 11:15 08/17/24 18:14 200 MG Amino Acids/ Electrolytes/ Dextrose 1,000 ml @ 41 mls/hr DAILY@2200 IV 08/17/24 22:00 Cancel Amino Acids/ Electrolytes/ Dextrose 2,000 ml @ 41 mls/hr DAILY@2200 IV 08/17/24 22:00 08/17/24 21:28 41 MLS/HR Albumin Human 100 ml @ 100 mls/hr Q8H IV 08/18/24 08:45 08/19/24 01:44 08/18/24 12:01 100 MLS/HR Examination: GENERAL:Normal, SKIN:Abnormal laboratory and microbiology Laboratory Tests 08/18/24 04:51 Test 08/18/24 04:51 Range/Units Serum Glucose 119 H 74-106 mg/dL Microbiology Date/Time Source Procedure Growth Status 08/07/24 06:30 Stool Clostridium difficile Toxin Assay - Final Complete 08/06/24 14:55 Voided Urine Urine Culture - Final Escherichia coli - ESBL Complete Problem List/Assessment/Plan Problem List/Assessment/Plan obstructive colonic adenocarcinoma s/p surgery Preserved renal function Hypophosphatemia due to decreased intestinal absorption Hypokalemia Hypomagnesemia tolerated po today > 25% per nurse, legs are swollen. Reviewed getting high volume of fluids. recommend stop continuous fluids will hold off on lasix today to prevent excessive electrolyte losses but tomorrow will give low dose if edema continues tomorrow increase po intake Avoid hypotension Strict Is&Os Plan discussed with: Patient Dietary Evaluation Review Comments: 1) If patient remains NPO > 7 days, increase TPN to meet at least 75% of estimated needs 2) Advance to regular diet as medically feasible, pending NON DESTRUCTIVE EVALUATION TECHNICIAN approval. Continue Ensure Enlive tid as previously ordered. Oral nutrition supplements provide 350 kcal and 20g Pro per 8 fl oz. 3) F/u with gastroenterology and oncology 4) Continue to monitor I&O, labs, and skin integrity. Oral nutrition supplements meet increased protein needs Expected Outcomes/Goals: 1) appetite and labs to improve 2) diet to advance 3) f/u in 2-3 days ESTEBAN RIZVI MD Aug 18, 2024 13:34
--- NOTE | 2024-08-18 14:10 | DVHPN2 ---
Subjective Date Seen: Aug 18, 2024 Post op day Post op day: 6 Patient reports: Feels better Nursing reports: No new complaints, No abdominal pain General: Normal HNT: Normal Cardiovascular: Normal Respiratory: Normal Gastrointestinal: Normal Genitourinary: Normal Musculoskeletal: Normal Neurological: Normal Objective Vitals Vital Sign Date Time Temp Pulse Resp B/P (MAP) Pulse Ox O2 Delivery O2 Flow Rate FiO2 08/18/24 12:33 98.9 104 20 118/76 (90) 96 98.9 08/18/24 08:00 Room Air* 0 21 Total Intake and Output 08/17/24 08/17/24 08/18/24 15:00 23:00 07:00 Intake Total 450 ml 500 ml Output Total 550 ml 410 ml Balance 450 ml -50 ml -410 ml Medications Current Medications Medications Dose Ordered Sig/Chris Route Start Time Stop Time Status Last Admin Dose Admin Sodium Chloride 10 ml Q8HR IV 08/06/24 22:00 08/18/24 05:17 10 ML Docusate Sodium 100 mg BIDPRN PRN PO 08/06/24 18:15 Acetaminophen 650 mg Q6HP PRN PO 08/06/24 18:15 08/17/24 20:29 650 MG Ondansetron HCl 4 mg Q4HP PRN IV 08/06/24 18:15 08/15/24 15:17 4 MG Ertapenem 1 gm/ Sodium Chloride 50 ml @ 100 mls/hr DAILY IV 08/09/24 10:00 08/18/24 12:05 100 MLS/HR Pantoprazole Sodium 40 mg DAILY IV 08/13/24 10:00 08/18/24 11:43 40 MG Amino Acids 0 ml @ 0 mls/hr PER PHARMACY IV 08/13/24 14:45 Diagnostic Test (Pha) 1 strip Q6HR 08/14/24 00:00 08/18/24 12:07 1 STRIP Insulin Human Regular FOLLOW SLIDING SCALE Q6HR SC 08/14/24 00:00 08/17/24 06:41 2 UNITS Dextrose 50 ml UD IV 08/13/24 22:00 Enteral Nutritional Formula 240 ml TIDWM PO 08/14/24 12:00 08/18/24 12:07 240 ML Hydromorphone HCl 0.5 mg Q6HPRN PRN IV 08/15/24 22:00 08/16/24 22:22 0.5 MG Guaifenesin 200 mg Q6HP PRN PO 08/17/24 11:15 08/18/24 13:23 200 MG Amino Acids/ Electrolytes/ Dextrose 1,000 ml @ 41 mls/hr DAILY@2200 IV 08/17/24 22:00 Cancel Amino Acids/ Electrolytes/ Dextrose 2,000 ml @ 41 mls/hr DAILY@2200 IV 08/17/24 22:00 08/17/24 21:28 41 MLS/HR Albumin Human 100 ml @ 100 mls/hr Q8H IV 08/18/24 08:45 08/19/24 01:44 08/18/24 13:24 100 MLS/HR General: Normal, Well developed, Well nourished, Normal Appearance Head/Eyes: Normal ENT: Normal, Normal ears, Normal nose Neck: Normal, Supple, No JVD Lungs: Normal, Normal inspection Cardiovascular: Normal, Regular rate and rhythm Abdominal: Normal, Soft, Normal inspection, Non tender Musculoskeletal: Normal Extremities: Normal Skin: Normal Neurological: Normal Labs and Microbiology Laboratory Tests 08/18/24 04:51 Test 08/18/24 04:51 Range/Units Serum Glucose 119 H 74-106 mg/dL Ass/Plan Labs and/or images reviewed: Labs reviewed by me, Image(s) reviewed by me Problem List obstructive colonic adenocarcinoma s/p surgery Preserved renal function Hypophosphatemia due to decreased intestinal absorption Hypokalemia Hypomagnesemia tolerated po today > 25% per nurse, legs are swollen. Reviewed getting high volume of fluids. recommend stop continuous fluids will hold off on lasix today to prevent excessive electrolyte losses but tomorrow will give low dose if edema continues tomorrow increase po intake Avoid hypotension Strict Is&Os Assessment/Plan status post right colectomy , no new complaints, afebrile, abdomen soft, non distended, appropriately tender, denies nausea or vomiting, MICHAEL drain serous fluid tender passing gas, no BM, afebrile, Normal WBC Plan: patent to ambulate NPO except ICE chips continue IV hydration Continue IV antibiotics 08/18/2024 Surgery: Laparoscopic right colectomy converted to open Post-Op Day: 6 - No new complaints - Resting comfortably in bed - Tolerating diet - Denies fever, nausea, vomiting - Passing gas - No bowel movement Physical Exam: - Abdomen soft, non-distended - Appropriately tender - MICHAEL drain serous fluid Plan: - Advance diet as tolerated - Use incentive spirometer hourly - continue IV hydration and antibiotics Prognosis: Excellent Plan discussed with patient, Dr. Abernathy Visit Coding Surgery Date of Service if different f: Aug 18, 2024 Billing Provider: ABIOLA ABERNATHY MD Surgery Visit Codes: [id number] INP/OBS CARE(HIGH) TERI MCBRIDE [facility] Aug 18, 2024 14:10
[2024-08-18] MEDS: SODIUM PHOSPHATES 20 MEQ in SODIUM CHL 0.9% 100 ML IV ONE (15:59)
[2024-08-18 20:51] LABS: Urine Bacteria None Seen /hpf (None Seen)
[2024-08-18 21:23] LABS: Urine Blood Negative /uL (Negative); Urine Clarity Clear (Clear); Urine Color Light-Yellow (Yellow); Urine Mucus FEW (None Seen); Urine Protein, UAD Negative (Negative); Urine Specific Gravity 1.009 (1.001-1.035); Urine Squamous Epithelial Cell FEW /hpf (<5); Urine Urobilinogen 2 mg/dL (Negative); Urine WBC 8 /HPF (0-5)
[2024-08-19] VITALS (8 sets, daily range): BP systolic 109–135; BP diastolic 50–85; PULSE 48–118; RESP 16–20; TEMP 98.1–99.4; O2SAT 93–100
--- NOTE | 2024-08-19 08:20 | DVHPN2 ---
Reviewed: Care Plan, H&P, Labs, Medications, Previous Orders, Radiology Changes from previous H/P or p: No Changes Objective Vitals Vital Signs Date Time Temp Pulse Resp B/P (MAP) Pulse Ox O2 Delivery O2 Flow Rate FiO2 08/19/24 05:00 98.7 91 19 130/85 (100) 94 98.7 08/18/24 20:00 Room Air* 0 21 Intake/Output Intake and Output 08/19/24 06:59 Intake Total 2280 ml Output Total 2700 ml Balance -420 ml Intake Oral 1200 ml IV Total 1080 ml Output Urine Total 2700 ml Medications Current Medications Medications Dose Ordered Sig/Chris Route Start Time Stop Time Status Last Admin Dose Admin Sodium Chloride 10 ml Q8HR IV 08/06/24 22:00 08/19/24 06:16 10 ML Docusate Sodium 100 mg BIDPRN PRN PO 08/06/24 18:15 Acetaminophen 650 mg Q6HP PRN PO 08/06/24 18:15 08/17/24 20:29 650 MG Ondansetron HCl 4 mg Q4HP PRN IV 08/06/24 18:15 08/15/24 15:17 4 MG Ertapenem 1 gm/ Sodium Chloride 50 ml @ 100 mls/hr DAILY IV 08/09/24 10:00 08/18/24 12:05 100 MLS/HR Pantoprazole Sodium 40 mg DAILY IV 08/13/24 10:00 08/18/24 11:43 40 MG Amino Acids 0 ml @ 0 mls/hr PER PHARMACY IV 08/13/24 14:45 Diagnostic Test (Pha) 1 strip Q6HR 08/14/24 00:00 08/19/24 06:13 1 STRIP Insulin Human Regular FOLLOW SLIDING SCALE Q6HR SC 08/14/24 00:00 08/17/24 06:41 2 UNITS Dextrose 50 ml UD IV 08/13/24 22:00 Enteral Nutritional Formula 240 ml TIDWM PO 08/14/24 12:00 08/18/24 18:59 240 ML Hydromorphone HCl 0.5 mg Q6HPRN PRN IV 08/15/24 22:00 08/16/24 22:22 0.5 MG Guaifenesin 200 mg Q6HP PRN PO 08/17/24 11:15 08/18/24 22:01 200 MG Amino Acids/ Electrolytes/ Dextrose 1,000 ml @ 41 mls/hr DAILY@2200 IV 08/17/24 22:00 Cancel Amino Acids/ Electrolytes/ Dextrose 2,000 ml @ 41 mls/hr DAILY@2200 IV 08/17/24 22:00 08/18/24 21:43 41 MLS/HR Laboratory Results Laboratory Tests 08/18/24 04:51 Urinalysis Test 08/18/24 18:57 Urine Color Light-yellow (Yellow) Urine Clarity Clear (Clear) Urine pH 8.0 (5.0-9.0) Urine Specific [place] 1.009 (1.001-1.035) Urine Protein Negative (Negative) Urine Ketones Negative (Negative) Urine Blood Negative /uL (Negative) Urine Nitrite Negative (Negative) Urine Bilirubin Negative (Negative) Urine Urobilinogen 2 mg/dL (Negative) H Urine Leukocyte Esterase Negative /uL (Negative) Urine RBC 2 /hpf (0 - 4) Urine Microscopic WBC 8 /HPF (0-5) H Urine Squamous Epithelial Cells Few /hpf (<5) Urine Bacteria None seen /hpf (None Seen) Urine Mucus Few (None Seen) Urine Glucose Normal mg/dL (Normal) Microbiology Microbiology Date/Time Source Procedure Growth Status 08/07/24 06:30 Stool Clostridium difficile Toxin Assay - Final Complete 08/06/24 14:55 Voided Urine Urine Culture - Final Escherichia coli - ESBL Complete Labs and/or images reviewed: Labs reviewed by me, Image(s) reviewed by me Assessment/Plan Assessment/Plan 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 Wilkins, biopsy result shows adenocarcinoma Status post Laparoscopic right colectomy converted to open right colectomy by Dr Hicks on 08-12-24, Gastritis by EGD by Dr. Wilkins, Acute urinary tract infection: Urine cultures growing Gram-negative rods, continue Rocephin History of anemia History of multiple blood transfusions Anemia hemoglobin 7.9: 1 unit RBC transfused during surgery hemoglobin now 9.8 Acute hypophosphatemia phosphorus 1.0, replace phosphorus, consult by Dr Langston appreciated Hypomagnesemia magnesium 1.5, IV magnesium 2 g times one Severe hypoalbuminemia albumin 2.8: Albumin transfusion Physical therapy ordered Patient is feeling better Advanced diet as tolerated Nutrition supplement : Ensure, clinimix Continue current management Physical therapy ordered IV fluids stopped: Patient is tolerating soft diet Plan discussed with: Patient Date of Service: Aug 19, 2024 Billing Provider: SHAWANDA TRAN MD Common Visit Codes: [id number] INP/OBS CARE(HIGH) SHAWANDA TRAN MD Aug 19, 2024 08:20
[2024-08-19 09:23] LABS: Basophils # (auto) 0 10 ^3/uL (0-0.2); Eosinophils # (auto) 0.1 10 ^3/uL (0-0.8); Eosinophils % (auto) 2.7 % (0.0-7.0); Lymphocytes % (auto) 14.3 % (10.0-50.0); Monocytes # (auto) 0.4 10 ^3/uL (0-1.3); Neutrophils # (auto) 3.9 10 ^3/uL (1.6-8.6); Platelet Count (auto) 314 10^3/uL (140-450)
[2024-08-19 09:25] LABS: Basophils % (auto) 0.2 % (0.0-2.0); Hematocrit 25.5 % (36.0-46.0); Hemoglobin 8.3 g/dL (12.2-16.2); Lymphocytes # (auto) 0.7 10 ^3/uL (0.4-5.4); Mean Corpuscular Hemoglobin 22.3 pg (28.0-32.0); Mean Corpuscular Hgb Conc. 32.5 g/dL (32.0-36.0); Mean Corpuscular Volume 68.6 fL (80.0-100.0); Monocytes % (auto) 8.3 % (0.0-12.0); Neutrophils % (auto) 74.5 % (37.0-80.0); Red Blood Cells 3.72 10^6/uL (4.0-5.20); White Blood Cell 5.2 10^3/uL (4.4-10.8)
[2024-08-19 09:40] LABS: Alanine Aminotransferase 20 U/L (7-40); Alkaline Phosphatase 108 U/L (46-116); Anion Gap 10 (5-15); Carbon Dioxide 27 mmol/L (20-31); Magnesium 1.7 mg/dL (1.6-2.6); Potassium 3.5 mmol/L (3.5-5.1)
[2024-08-19 09:41] LABS: Albumin 3.7 g/dL (3.2-4.8); Aspartate Aminotransferase 33 U/L (13-40); Bilirubin, Total 0.5 mg/dL (0.2-1.0); Phosphorus 2.7 mg/dL (2.4-5.1)
[2024-08-19 09:42] LABS: BUN/Creatinine Ratio 18.5 (10.0-20.0); Blood Urea Nitrogen < 5 mg/dL (9-23); Chloride 108 mmol/L (98-107); Glucose 118 mg/dL (74-106); Sodium 145 mmol/L (136-145)
[2024-08-19 11:13] LABS: Anisocytosis Marked; Hypochromia Moderate; Ovalocytes FEW; Platelet Estimate Adequate
--- NOTE | 2024-08-19 12:30 | DVHPN2 ---
Subjective Date Seen: Aug 19, 2024 Post op day Post op day: 7 Patient reports: Feels better Nursing reports: No new complaints, No abdominal pain General: Normal HNT: Normal Cardiovascular: Normal Respiratory: Normal Gastrointestinal: Normal Genitourinary: Normal Musculoskeletal: Normal Neurological: Normal Objective Vitals Vital Sign Date Time Temp Pulse Resp B/P (MAP) Pulse Ox O2 Delivery O2 Flow Rate FiO2 08/19/24 08:30 98.8 56 16 135/82 (99) 96 98.8 08/18/24 20:00 Room Air* 0 21 Total Intake and Output 08/18/24 08/18/24 08/19/24 15:00 23:00 07:00 Intake Total 1280 ml 1000 ml Output Total 2100 ml 600 ml Balance -820 ml 400 ml Medications Current Medications Medications Dose Ordered Sig/Chris Route Start Time Stop Time Status Last Admin Dose Admin Sodium Chloride 10 ml Q8HR IV 08/06/24 22:00 08/19/24 06:16 10 ML Docusate Sodium 100 mg BIDPRN PRN PO 08/06/24 18:15 Acetaminophen 650 mg Q6HP PRN PO 08/06/24 18:15 08/17/24 20:29 650 MG Ondansetron HCl 4 mg Q4HP PRN IV 08/06/24 18:15 08/15/24 15:17 4 MG Ertapenem 1 gm/ Sodium Chloride 50 ml @ 100 mls/hr DAILY IV 08/09/24 10:00 08/19/24 09:49 100 MLS/HR Pantoprazole Sodium 40 mg DAILY IV 08/13/24 10:00 08/19/24 09:44 40 MG Amino Acids 0 ml @ 0 mls/hr PER PHARMACY IV 08/13/24 14:45 Diagnostic Test (Pha) 1 strip Q6HR 08/14/24 00:00 08/19/24 11:32 1 STRIP Insulin Human Regular FOLLOW SLIDING SCALE Q6HR SC 08/14/24 00:00 08/17/24 06:41 2 UNITS Dextrose 50 ml UD IV 08/13/24 22:00 Enteral Nutritional Formula 240 ml TIDWM PO 08/14/24 12:00 08/19/24 08:00 240 ML Hydromorphone HCl 0.5 mg Q6HPRN PRN IV 08/15/24 22:00 08/16/24 22:22 0.5 MG Guaifenesin 200 mg Q6HP PRN PO 08/17/24 11:15 08/18/24 22:01 200 MG Amino Acids/ Electrolytes/ Dextrose 1,000 ml @ 41 mls/hr DAILY@2200 IV 08/17/24 22:00 Cancel Amino Acids/ Electrolytes/ Dextrose 2,000 ml @ 41 mls/hr DAILY@2200 IV 08/17/24 22:00 08/18/24 21:43 41 MLS/HR General: Normal, Well developed, Well nourished, Normal Appearance Head/Eyes: Normal ENT: Normal, Normal ears, Normal nose Neck: Normal, Supple, No JVD Lungs: Normal, Normal inspection Cardiovascular: Normal, Regular rate and rhythm Abdominal: Normal, Soft, Normal inspection, Non tender Musculoskeletal: Normal Extremities: Normal Skin: Normal Neurological: Normal Labs and Microbiology Laboratory Tests 08/19/24 09:04 Test 08/19/24 09:04 Range/Units Serum Glucose 118 H 74-106 mg/dL Ass/Plan Labs and/or images reviewed: Labs reviewed by me, Image(s) reviewed by me Problem List obstructive colonic adenocarcinoma s/p surgery Preserved renal function Hypophosphatemia due to decreased intestinal absorption Hypokalemia Hypomagnesemia tolerated po today > 25% per nurse, legs are swollen. Reviewed getting high volume of fluids. recommend stop continuous fluids will hold off on lasix today to prevent excessive electrolyte losses but tomorrow will give low dose if edema continues tomorrow increase po intake Avoid hypotension Strict Is&Os Assessment/Plan status post right colectomy , no new complaints, afebrile, abdomen soft, non distended, appropriately tender, denies nausea or vomiting, MICHAEL drain serous fluid tender passing gas, no BM, afebrile, Normal WBC Plan: patent to ambulate NPO except ICE chips continue IV hydration Continue IV antibiotics 08/18/2024 Surgery: Laparoscopic right colectomy converted to open Post-Op Day: 6 - No new complaints - Resting comfortably in bed - Tolerating diet - Denies fever, nausea, vomiting - Passing gas - No bowel movement Physical Exam: - Abdomen soft, non-distended - Appropriately tender - MICHAEL drain serous fluid Plan: - Advance diet as tolerated - Use incentive spirometer hourly - continue IV hydration and antibiotics 08/19/24 post op day 7 no new complaints feeling better tolerating diet, denies nausea or vomiting, passing gas Plan: Patient to ambulate remove drains tomorrow Prognosis: Excellent Plan discussed with patient, Dr. Abernathy Visit Coding Surgery Date of Service if different f: Aug 19, 2024 Billing Provider: ABIOLA ABERNATHY MD Surgery Visit Codes: [id number] INP/OBS CARE(HIGH) TERI MCBRIDE DNP Aug 19, 2024 12:29
[2024-08-19] MEDS: FUROSEMIDE 20 MG/2 ML VIAL IV ONE (13:15)
--- NOTE | 2024-08-19 13:15 | DVHPN2 ---
Progress Note Date Seen: Aug 19, 2024 Medical Necessity Reason Pt with a Central, PICC or Fol: Yes The following are medically ne: Tejada Catheter Subjective Patient reports: Feels better Objective vital signs Vital Sign Date Time Temp Pulse Resp B/P (MAP) Pulse Ox O2 Delivery O2 Flow Rate FiO2 08/19/24 12:56 98.5 78 16 109/72 (84) 93 98.5 08/18/24 20:00 Room Air* 0 21 Total Intake and Output 08/18/24 08/18/24 08/19/24 15:00 23:00 07:00 Intake Total 1280 ml 1000 ml Output Total 2100 ml 600 ml Balance -820 ml 400 ml medications Current Medications Medications Dose Ordered Sig/Chris Route Start Time Stop Time Status Last Admin Dose Admin Sodium Chloride 10 ml Q8HR IV 08/06/24 22:00 08/19/24 06:16 10 ML Docusate Sodium 100 mg BIDPRN PRN PO 08/06/24 18:15 Acetaminophen 650 mg Q6HP PRN PO 08/06/24 18:15 08/17/24 20:29 650 MG Ondansetron HCl 4 mg Q4HP PRN IV 08/06/24 18:15 08/15/24 15:17 4 MG Ertapenem 1 gm/ Sodium Chloride 50 ml @ 100 mls/hr DAILY IV 08/09/24 10:00 08/19/24 09:49 100 MLS/HR Pantoprazole Sodium 40 mg DAILY IV 08/13/24 10:00 08/19/24 09:44 40 MG Amino Acids 0 ml @ 0 mls/hr PER PHARMACY IV 08/13/24 14:45 Diagnostic Test (Pha) 1 strip Q6HR 08/14/24 00:00 08/19/24 11:32 1 STRIP Insulin Human Regular FOLLOW SLIDING SCALE Q6HR SC 08/14/24 00:00 08/17/24 06:41 2 UNITS Dextrose 50 ml UD IV 08/13/24 22:00 Enteral Nutritional Formula 240 ml TIDWM PO 08/14/24 12:00 08/19/24 08:00 240 ML Hydromorphone HCl 0.5 mg Q6HPRN PRN IV 08/15/24 22:00 08/16/24 22:22 0.5 MG Guaifenesin 200 mg Q6HP PRN PO 08/17/24 11:15 08/18/24 22:01 200 MG Amino Acids/ Electrolytes/ Dextrose 1,000 ml @ 41 mls/hr DAILY@2200 IV 08/17/24 22:00 Cancel Amino Acids/ Electrolytes/ Dextrose 2,000 ml @ 41 mls/hr DAILY@2200 IV 08/17/24 22:00 08/18/24 21:43 41 MLS/HR Examination: GENERAL:Normal, ABDOMEN:Abnormal, SKIN:Abnormal laboratory and microbiology Laboratory Tests 08/19/24 09:04 Test 08/19/24 09:04 Range/Units Serum Glucose 118 H 74-106 mg/dL Microbiology Date/Time Source Procedure Growth Status 08/07/24 06:30 Stool Clostridium difficile Toxin Assay - Final Complete 08/06/24 14:55 Voided Urine Urine Culture - Final Escherichia coli - ESBL Complete Problem List/Assessment/Plan Problem List/Assessment/Plan obstructive colonic adenocarcinoma s/p surgery Preserved renal function Hypophosphatemia due to decreased intestinal absorption Hypokalemia Hypomagnesemia tolerating po labs improved lasix 20mg today due to ankle edema, taper off fluids to prevent overload Avoid hypotension Strict Is&Os Plan discussed with: Patient Dietary Evaluation Review Comments: 1) If patient remains NPO > 7 days, increase TPN to meet at least 75% of estimated needs 2) Advance to regular diet as medically feasible, pending FREIGHT AND PASSENGER AGENT approval. Continue Ensure Enlive tid as previously ordered. Oral nutrition supplements provide 350 kcal and 20g Pro per 8 fl oz. 3) F/u with gastroenterology and oncology 4) Continue to monitor I&O, labs, and skin integrity. Oral nutrition supplements meet increased protein needs Expected Outcomes/Goals: 1) appetite and labs to improve 2) diet to advance 3) f/u in 2-3 days ESTEBAN RIZVI MD Aug 19, 2024 13:15
--- NOTE | 2024-08-19 22:19 | DVHPN2 ---
Progress Note - Dictate Date Seen: Aug 19, 2024 Medical Necessity Reason Pt with a Central, PICC or Fol: Yes The following are medically ne: Tejada Catheter Subjective No new complaints Patient is moving her bowels She was out of bed to chair She is tolerating diet vital signs Vital Sign Date Time Temp Pulse Resp B/P (MAP) Pulse Ox O2 Delivery O2 Flow Rate FiO2 08/19/24 20:59 98.1 118 19 113/66 (82) 97 98.1 08/19/24 08:00 Room Air* 0 21 Total Intake and Output 08/18/24 08/18/24 08/19/24 15:00 23:00 07:00 Intake Total 1280 ml 1000 ml Output Total 2100 ml 600 ml Balance -820 ml 400 ml medications Current Medications Medications Dose Ordered Sig/Chris Route Start Time Stop Time Status Last Admin Dose Admin Sodium Chloride 10 ml Q8HR IV 08/06/24 22:00 08/19/24 21:34 10 ML Docusate Sodium 100 mg BIDPRN PRN PO 08/06/24 18:15 Acetaminophen 650 mg Q6HP PRN PO 08/06/24 18:15 08/17/24 20:29 650 MG Ondansetron HCl 4 mg Q4HP PRN IV 08/06/24 18:15 08/15/24 15:17 4 MG Ertapenem 1 gm/ Sodium Chloride 50 ml @ 100 mls/hr DAILY IV 08/09/24 10:00 08/19/24 09:49 100 MLS/HR Pantoprazole Sodium 40 mg DAILY IV 08/13/24 10:00 08/19/24 09:44 40 MG Amino Acids 0 ml @ 0 mls/hr PER PHARMACY IV 08/13/24 14:45 Diagnostic Test (Pha) 1 strip Q6HR 08/14/24 00:00 08/19/24 17:00 1 STRIP Insulin Human Regular FOLLOW SLIDING SCALE Q6HR SC 08/14/24 00:00 08/17/24 06:41 2 UNITS Dextrose 50 ml UD IV 08/13/24 22:00 Enteral Nutritional Formula 240 ml TIDWM PO 08/14/24 12:00 08/19/24 18:00 240 ML Hydromorphone HCl 0.5 mg Q6HPRN PRN IV 08/15/24 22:00 08/16/24 22:22 0.5 MG Guaifenesin 200 mg Q6HP PRN PO 08/17/24 11:15 08/18/24 22:01 200 MG Amino Acids/ Electrolytes/ Dextrose 1,000 ml @ 41 mls/hr DAILY@2200 IV 08/17/24 22:00 Cancel Amino Acids/ Electrolytes/ Dextrose 2,000 ml @ 41 mls/hr DAILY@2200 IV 08/17/24 22:00 08/19/24 21:22 41 MLS/HR objective GENERAL:Normal, ABDOMEN:Abnormal, SKIN:Abnormal laboratory and microbiology Laboratory Tests 08/19/24 09:04 Test 08/19/24 09:04 Range/Units Serum Glucose 118 H 74-106 mg/dL Problems(with codes): (1) Acute metabolic encephalopathy (2) Generalized weakness (3) UTI (urinary tract infection) (4) Severe anemia (5) Unintentional weight loss Prognosis Plan Advance diet as tolerated Continue physical therapy encourage ambulation Check final pathology results Dietary Evaluation Review Comments: 1) If patient remains NPO > 7 days, increase TPN to meet at least 75% of estimated needs 2) Advance to regular diet as medically feasible, pending KERRICK KLEANER OPERATOR approval. Continue Ensure Enlive tid as previously ordered. Oral nutrition supplements provide 350 kcal and 20g Pro per 8 fl oz. 3) F/u with gastroenterology and oncology 4) Continue to monitor I&O, labs, and skin integrity. Oral nutrition supplements meet increased protein needs Expected Outcomes/Goals: 1) appetite and labs to improve 2) diet to advance 3) f/u in 2-3 days Plan discussed with: Patient, Other (Nurse) SHREE VERDIN MD Aug 19, 2024 22:19
[2024-08-20] VITALS (8 sets, daily range): BP systolic 89–117; BP diastolic 44–76; PULSE 60–113; RESP 17–21; TEMP 98–99.1; O2SAT 93–95
[2024-08-20 08:10] LABS: Alanine Aminotransferase 14 U/L (7-40); Albumin 3.5 g/dL (3.2-4.8); Alkaline Phosphatase 100 U/L (46-116); Anion Gap 9 (5-15); Aspartate Aminotransferase 22 U/L (13-40); Carbon Dioxide 28 mmol/L (20-31); Magnesium 1.7 mg/dL (1.6-2.6); Sodium 144 mmol/L (136-145); Total Protein 5.9 g/dL (5.7-8.2)
[2024-08-20 08:11] LABS: Basophils # (auto) 0 10 ^3/uL (0-0.2); Bilirubin, Total 0.4 mg/dL (0.2-1.0); Eosinophils % (auto) 3.1 % (0.0-7.0); Hemoglobin 8.7 g/dL (12.2-16.2); Lymphocytes # (auto) 0.8 10 ^3/uL (0.4-5.4); Phosphorus 2.7 mg/dL (2.4-5.1)
[2024-08-20 08:12] LABS: Blood Urea Nitrogen 9 mg/dL (9-23); Chloride 107 mmol/L (98-107); Glucose 118 mg/dL (74-106); Potassium 3.3 mmol/L (3.5-5.1)
[2024-08-20 08:13] LABS: Basophils % (auto) 0.3 % (0.0-2.0); Eosinophils # (auto) 0.1 10 ^3/uL (0-0.8); Hematocrit 27.3 % (36.0-46.0); Lymphocytes % (auto) 16.4 % (10.0-50.0); Mean Corpuscular Hgb Conc. 31.8 g/dL (32.0-36.0); Mean Corpuscular Volume 69.1 fL (80.0-100.0); Monocytes # (auto) 0.5 10 ^3/uL (0-1.3); Neutrophils # (auto) 3.4 10 ^3/uL (1.6-8.6); Neutrophils % (auto) 70.2 % (37.0-80.0); Nucleated Red Blood Cells % 0.1 %; Platelet Count (auto) 336 10^3/uL (140-450); Red Blood Cells 3.95 10^6/uL (4.0-5.20); White Blood Cell 4.8 10^3/uL (4.4-10.8)
--- NOTE | 2024-08-20 08:20 | DVHPN2 ---
Reviewed: Care Plan, H&P, Labs, Medications, Previous Orders, Radiology Changes from previous H/P or p: No Changes Objective Vitals Vital Signs Date Time Temp Pulse Resp B/P (MAP) Pulse Ox O2 Delivery O2 Flow Rate FiO2 08/20/24 08:00 17 Room Air* 0 21 08/20/24 05:05 98.3 98 117/76 (90) 95 98.3 Intake/Output Intake and Output 08/20/24 07:00 Intake Total 1650 ml Output Total 2700 ml Balance -1050 ml Intake Oral 650 ml IV Total 1000 ml Output Urine Total 2700 ml # Bowel Movements 2 Medications Current Medications Medications Dose Ordered Sig/Chris Route Start Time Stop Time Status Last Admin Dose Admin Sodium Chloride 10 ml Q8HR IV 08/06/24 22:00 08/20/24 05:36 10 ML Docusate Sodium 100 mg BIDPRN PRN PO 08/06/24 18:15 Acetaminophen 650 mg Q6HP PRN PO 08/06/24 18:15 08/17/24 20:29 650 MG Ondansetron HCl 4 mg Q4HP PRN IV 08/06/24 18:15 08/15/24 15:17 4 MG Ertapenem 1 gm/ Sodium Chloride 50 ml @ 100 mls/hr DAILY IV 08/09/24 10:00 08/19/24 09:49 100 MLS/HR Pantoprazole Sodium 40 mg DAILY IV 08/13/24 10:00 08/19/24 09:44 40 MG Amino Acids 0 ml @ 0 mls/hr PER PHARMACY IV 08/13/24 14:45 Diagnostic Test (Pha) 1 strip Q6HR 08/14/24 00:00 08/20/24 05:29 1 STRIP Insulin Human Regular FOLLOW SLIDING SCALE Q6HR SC 08/14/24 00:00 08/20/24 05:36 2 UNITS Dextrose 50 ml UD IV 08/13/24 22:00 Enteral Nutritional Formula 240 ml TIDWM PO 08/14/24 12:00 08/19/24 18:00 240 ML Hydromorphone HCl 0.5 mg Q6HPRN PRN IV 08/15/24 22:00 08/16/24 22:22 0.5 MG Guaifenesin 200 mg Q6HP PRN PO 08/17/24 11:15 08/18/24 22:01 200 MG Amino Acids/ Electrolytes/ Dextrose 1,000 ml @ 41 mls/hr DAILY@2200 IV 08/17/24 22:00 Cancel Amino Acids/ Electrolytes/ Dextrose 2,000 ml @ 41 mls/hr DAILY@2200 IV 08/17/24 22:00 08/19/24 21:22 41 MLS/HR Laboratory Results Laboratory Tests 08/20/24 07:13 Chemistry Test 08/19/24 09:04 08/20/24 07:13 Albumin 3.7 g/dL (3.2-4.8) 3.5 g/dL (3.2-4.8) Calcium Level 9.0 mg/dL (8.7-10.4) 9.0 mg/dL (8.7-10.4) Magnesium Level 1.7 mg/dL (1.6-2.6) 1.7 mg/dL (1.6-2.6) Phosphorus Level 2.7 mg/dL (2.4-5.1) 2.7 mg/dL (2.4-5.1) Total Protein 6.0 g/dL (5.7-8.2) 5.9 g/dL (5.7-8.2) LFT Test 08/19/24 09:04 08/20/24 07:13 Alanine Aminotransferase (ALT) 20 U/L (7-40) 14 U/L (7-40) Alkaline Phosphatase 108 U/L (46-116) 100 U/L (46-116) Aspartate Amino Transferase (AST) 33 U/L (13-40) 22 U/L (13-40) Total Bilirubin 0.5 mg/dL (0.2-1.0) 0.4 mg/dL (0.2-1.0) Urinalysis Test 08/18/24 18:57 Urine Color Light-yellow (Yellow) Urine Clarity Clear (Clear) Urine pH 8.0 (5.0-9.0) Urine Specific [place] 1.009 (1.001-1.035) Urine Protein Negative (Negative) Urine Ketones Negative (Negative) Urine Blood Negative /uL (Negative) Urine Nitrite Negative (Negative) Urine Bilirubin Negative (Negative) Urine Urobilinogen 2 mg/dL (Negative) H Urine Leukocyte Esterase Negative /uL (Negative) Urine RBC 2 /hpf (0 - 4) Urine Microscopic WBC 8 /HPF (0-5) H Urine Squamous Epithelial Cells Few /hpf (<5) Urine Bacteria None seen /hpf (None Seen) Urine Mucus Few (None Seen) Urine Glucose Normal mg/dL (Normal) Microbiology Microbiology Date/Time Source Procedure Growth Status 08/07/24 06:30 Stool Clostridium difficile Toxin Assay - Final Complete 08/06/24 14:55 Voided Urine Urine Culture - Final Escherichia coli - ESBL Complete Labs and/or images reviewed: Labs reviewed by me, Image(s) reviewed by me Assessment/Plan Assessment/Plan 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 Wilkins, biopsy result shows adenocarcinoma Status post Laparoscopic right colectomy converted to open right colectomy by Dr Hicks on 08-12-24, Gastritis by EGD by Dr. Wilkins, Acute urinary tract infection: Urine cultures growing ESBL E coli: Continue Invanz History of anemia History of multiple blood transfusions Anemia hemoglobin 7.9: 1 unit RBC transfused during surgery hemoglobin now 9.8 Acute hypophosphatemia phosphorus 1.0, replace phosphorus, consult by Dr Langston appreciated Hypomagnesemia magnesium 1.5, IV magnesium 2 g times one Severe hypoalbuminemia albumin 2.8: Albumin transfusion Physical therapy ordered Patient is feeling better Advanced diet as tolerated Nutrition supplement : Ensure, we will DC clindamycin as the patient is able to eat now; Continue current management Physical therapy ordered Continue current management Plan discussed with: Patient, Other (RN) Date of Service: Aug 20, 2024 Billing Provider: SHAWANDA TRAN MD Common Visit Codes: [id number] INP/OBS CARE(HIGH) SHAWANDA TRAN MD Aug 20, 2024 08:20
--- NOTE | 2024-08-20 10:57 | DVHPN2 ---
Subjective Date Seen: Aug 20, 2024 Post op day Post op day: 7 Patient reports: Feels better Nursing reports: No new complaints, No abdominal pain General: Normal HNT: Normal Cardiovascular: Normal Respiratory: Normal Gastrointestinal: Normal Genitourinary: Normal Musculoskeletal: Normal Neurological: Normal Objective Vitals Vital Sign Date Time Temp Pulse Resp B/P (MAP) Pulse Ox O2 Delivery O2 Flow Rate FiO2 08/20/24 08:59 98.3 95 19 116/69 (85) 95 98.3 08/20/24 08:00 Room Air* 0 21 Total Intake and Output 08/19/24 08/19/24 08/20/24 15:00 23:00 07:00 Intake Total 50 ml 1400 ml 200 ml Output Total 1700 ml 1000 ml Balance 50 ml -300 ml -800 ml Medications Current Medications Medications Dose Ordered Sig/Chris Route Start Time Stop Time Status Last Admin Dose Admin Sodium Chloride 10 ml Q8HR IV 08/06/24 22:00 08/20/24 05:36 10 ML Docusate Sodium 100 mg BIDPRN PRN PO 08/06/24 18:15 Acetaminophen 650 mg Q6HP PRN PO 08/06/24 18:15 08/17/24 20:29 650 MG Ondansetron HCl 4 mg Q4HP PRN IV 08/06/24 18:15 08/15/24 15:17 4 MG Ertapenem 1 gm/ Sodium Chloride 50 ml @ 100 mls/hr DAILY IV 08/09/24 10:00 08/20/24 10:09 100 MLS/HR Pantoprazole Sodium 40 mg DAILY IV 08/13/24 10:00 08/20/24 10:09 40 MG Diagnostic Test (Pha) 1 strip Q6HR 08/14/24 00:00 08/20/24 05:29 1 STRIP Insulin Human Regular FOLLOW SLIDING SCALE Q6HR SC 08/14/24 00:00 08/20/24 05:36 2 UNITS Dextrose 50 ml UD IV 08/13/24 22:00 Enteral Nutritional Formula 240 ml TIDWM PO 08/14/24 12:00 08/20/24 08:00 240 ML Hydromorphone HCl 0.5 mg Q6HPRN PRN IV 08/15/24 22:00 08/16/24 22:22 0.5 MG Guaifenesin 200 mg Q6HP PRN PO 08/17/24 11:15 08/18/24 22:01 200 MG Amino Acids/ Electrolytes/ Dextrose 1,000 ml @ 41 mls/hr DAILY@2200 IV 08/17/24 22:00 Cancel General: Normal, Well developed, Well nourished, Normal Appearance Head/Eyes: Normal ENT: Normal, Normal ears, Normal nose Neck: Normal, Supple, No JVD Lungs: Normal, Normal inspection Cardiovascular: Normal, Regular rate and rhythm Abdominal: Normal, Soft, Normal inspection, Non tender Musculoskeletal: Normal Extremities: Normal Skin: Normal Neurological: Normal Labs and Microbiology Laboratory Tests 08/20/24 07:13 Test 08/20/24 07:13 Range/Units Serum Glucose 118 H 74-106 mg/dL Ass/Plan Labs and/or images reviewed: Labs reviewed by me, Image(s) reviewed by me Problem List obstructive colonic adenocarcinoma s/p surgery Preserved renal function Hypophosphatemia due to decreased intestinal absorption Hypokalemia Hypomagnesemia tolerating po labs improved lasix 20mg today due to ankle edema, taper off fluids to prevent overload Avoid hypotension Strict Is&Os Assessment/Plan status post right colectomy , no new complaints, afebrile, abdomen soft, non distended, appropriately tender, denies nausea or vomiting, MICHAEL drain serous fluid tender passing gas, no BM, afebrile, Normal WBC Plan: patent to ambulate NPO except ICE chips continue IV hydration Continue IV antibiotics 08/18/2024 Surgery: Laparoscopic right colectomy converted to open Post-Op Day: 6 - No new complaints - Resting comfortably in bed - Tolerating diet - Denies fever, nausea, vomiting - Passing gas - No bowel movement Physical Exam: - Abdomen soft, non-distended - Appropriately tender - MICAHEL drain serous fluid Plan: - Advance diet as tolerated - Use incentive spirometer hourly - continue IV hydration and antibiotics 08/19/24 post op day 7 no new complaints feeling better tolerating diet, denies nausea or vomiting, passing gas Plan: Patient to ambulate remove drains tomorrow 08/20/24 s/p Laparoscopic right colectomy converted to open post op day 7 abdomen Soft, non distended, MICHAEL drain serous fluid, tolerating diet, BM, passing gas , denies nausea or vomiting Plan: MICHAEL drains removed, per surgery point of view ok to discharge patient patient to follow up in clinic in 7-10 days Prognosis: Excellent Plan discussed with patient Visit Coding Surgery Date of Service if different f: Aug 20, 2024 Billing Provider: ABIOLA KING MD Surgery Visit Codes: [id number] INP/OBS CARE(HIGH) TERI MCBRIDE DNP Aug 20, 2024 10:57
--- NOTE | 2024-08-20 15:38 | DVHPN2 ---
Progress Note Date Seen: Aug 20, 2024 Medical Necessity Reason Pt with a Central, PICC or Fol: Yes The following are medically ne: Tejada Catheter Subjective Patient reports: Feels better Objective vital signs Vital Sign Date Time Temp Pulse Resp B/P (MAP) Pulse Ox O2 Delivery O2 Flow Rate FiO2 08/20/24 13:00 98.1 107 21 99/67 (78) 95 98.1 08/20/24 08:00 Room Air* 0 21 Total Intake and Output 08/19/24 08/19/24 08/20/24 15:00 23:00 07:00 Intake Total 50 ml 1400 ml 200 ml Output Total 1700 ml 1000 ml Balance 50 ml -300 ml -800 ml medications Current Medications Medications Dose Ordered Sig/Chris Route Start Time Stop Time Status Last Admin Dose Admin Sodium Chloride 10 ml Q8HR IV 08/06/24 22:00 08/20/24 14:00 10 ML Docusate Sodium 100 mg BIDPRN PRN PO 08/06/24 18:15 Acetaminophen 650 mg Q6HP PRN PO 08/06/24 18:15 08/17/24 20:29 650 MG Ondansetron HCl 4 mg Q4HP PRN IV 08/06/24 18:15 08/15/24 15:17 4 MG Ertapenem 1 gm/ Sodium Chloride 50 ml @ 100 mls/hr DAILY IV 08/09/24 10:00 08/20/24 10:09 100 MLS/HR Pantoprazole Sodium 40 mg DAILY IV 08/13/24 10:00 08/20/24 10:09 40 MG Diagnostic Test (Pha) 1 strip Q6HR 08/14/24 00:00 08/20/24 05:29 1 STRIP Insulin Human Regular FOLLOW SLIDING SCALE Q6HR SC 08/14/24 00:00 08/20/24 05:36 2 UNITS Dextrose 50 ml UD IV 08/13/24 22:00 Enteral Nutritional Formula 240 ml TIDWM PO 08/14/24 12:00 08/20/24 12:00 240 ML Hydromorphone HCl 0.5 mg Q6HPRN PRN IV 08/15/24 22:00 08/16/24 22:22 0.5 MG Guaifenesin 200 mg Q6HP PRN PO 08/17/24 11:15 08/18/24 22:01 200 MG Amino Acids/ Electrolytes/ Dextrose 1,000 ml @ 41 mls/hr DAILY@2200 IV 08/17/24 22:00 Cancel Examination: GENERAL:Normal, CVS:Normal, ABDOMEN:Abnormal laboratory and microbiology Laboratory Tests 08/20/24 07:13 Test 08/20/24 07:13 Range/Units Serum Glucose 118 H 74-106 mg/dL Microbiology Date/Time Source Procedure Growth Status 08/07/24 06:30 Stool Clostridium difficile Toxin Assay - Final Complete 08/06/24 14:55 Voided Urine Urine Culture - Final Escherichia coli - ESBL Complete Problem List/Assessment/Plan Problem List/Assessment/Plan obstructive colonic adenocarcinoma s/p surgery Preserved renal function Hypophosphatemia due to decreased intestinal absorption Hypokalemia Hypomagnesemia tolerating po labs improved off fluids now Avoid hypotension Strict Is&Os rec trial of void Plan discussed with: Patient Dietary Evaluation Review Comments: 1) If patient remains NPO > 7 days, increase TPN to meet at least 75% of estimated needs 2) Advance to regular diet as medically feasible, pending MEETING/EVENT PLANNER approval. Continue Ensure Enlive tid as previously ordered. Oral nutrition supplements provide 350 kcal and 20g Pro per 8 fl oz. 3) F/u with gastroenterology and oncology 4) Continue to monitor I&O, labs, and skin integrity. Oral nutrition supplements meet increased protein needs Expected Outcomes/Goals: 1) appetite and labs to improve 2) diet to advance 3) f/u in 2-3 days ESTEBAN RIZVI MD Aug 20, 2024 15:38
[2024-08-20] MEDS: POTASSIUM CHL 20 Meq TABLET PO ONE (22:22)
--- NOTE | 2024-08-20 22:43 | DVHPN2 ---
Progress Note - Dictate Date Seen: Aug 20, 2024 Medical Necessity Reason Pt with a Central, PICC or Fol: Yes The following are medically ne: Tejada Catheter Subjective No new complaints Patient is moving her bowels She was out of bed to chair She is tolerating diet vital signs Vital Sign Date Time Temp Pulse Resp B/P (MAP) Pulse Ox O2 Delivery O2 Flow Rate FiO2 08/20/24 21:00 98.1 113 20 112/72 (85) 95 98.1 08/20/24 08:00 Room Air* 0 21 Total Intake and Output 08/19/24 08/19/24 08/20/24 15:00 23:00 07:00 Intake Total 50 ml 1400 ml 200 ml Output Total 1700 ml 1000 ml Balance 50 ml -300 ml -800 ml medications Current Medications Medications Dose Ordered Sig/Chris Route Start Time Stop Time Status Last Admin Dose Admin Sodium Chloride 10 ml Q8HR IV 08/06/24 22:00 08/20/24 22:24 10 ML Docusate Sodium 100 mg BIDPRN PRN PO 08/06/24 18:15 Acetaminophen 650 mg Q6HP PRN PO 08/06/24 18:15 08/17/24 20:29 650 MG Ondansetron HCl 4 mg Q4HP PRN IV 08/06/24 18:15 08/15/24 15:17 4 MG Ertapenem 1 gm/ Sodium Chloride 50 ml @ 100 mls/hr DAILY IV 08/09/24 10:00 08/20/24 10:09 100 MLS/HR Pantoprazole Sodium 40 mg DAILY IV 08/13/24 10:00 08/20/24 10:09 40 MG Diagnostic Test (Pha) 1 strip Q6HR 08/14/24 00:00 08/20/24 05:29 1 STRIP Insulin Human Regular FOLLOW SLIDING SCALE Q6HR SC 08/14/24 00:00 08/20/24 05:36 2 UNITS Dextrose 50 ml UD IV 08/13/24 22:00 Enteral Nutritional Formula 240 ml TIDWM PO 08/14/24 12:00 08/20/24 17:59 240 ML Hydromorphone HCl 0.5 mg Q6HPRN PRN IV 08/15/24 22:00 08/16/24 22:22 0.5 MG Guaifenesin 200 mg Q6HP PRN PO 08/17/24 11:15 08/18/24 22:01 200 MG Amino Acids/ Electrolytes/ Dextrose 1,000 ml @ 41 mls/hr DAILY@2200 IV 08/17/24 22:00 Cancel objective GENERAL:Normal, ABDOMEN:Abnormal, SKIN:Abnormal laboratory and microbiology Laboratory Tests 08/20/24 07:13 Test 08/20/24 07:13 Range/Units Serum Glucose 118 H 74-106 mg/dL Problems(with codes): (1) Severe anemia (2) Unintentional weight loss (3) Acute metabolic encephalopathy (4) Generalized weakness Prognosis Plan Review final pathology results Continue PT Patient was encouraged to ambulate Advance diet as tolerated Dietary Evaluation Review Comments: 1) If patient remains NPO > 7 days, increase TPN to meet at least 75% of estimated needs 2) Advance to regular diet as medically feasible, pending EDI SPECIALIST approval. Continue Ensure Enlive tid as previously ordered. Oral nutrition supplements provide 350 kcal and 20g Pro per 8 fl oz. 3) F/u with gastroenterology and oncology 4) Continue to monitor I&O, labs, and skin integrity. Oral nutrition supplements meet increased protein needs Expected Outcomes/Goals: 1) appetite and labs to improve 2) diet to advance 3) f/u in 2-3 days Plan discussed with: Patient SHREE VERDIN MD Aug 20, 2024 22:43
[2024-08-21] VITALS (8 sets, daily range): BP systolic 103–154; BP diastolic 66–81; PULSE 81–119; RESP 16–20; TEMP 98–98.9; O2SAT 94–97
[2024-08-21 05:45] LABS: Basophils # (auto) 0 10 ^3/uL (0-0.2); Basophils % (auto) 0.4 % (0.0-2.0); Eosinophils # (auto) 0.2 10 ^3/uL (0-0.8); Eosinophils % (auto) 4.1 % (0.0-7.0); Hematocrit 26.2 % (36.0-46.0); Hemoglobin 8.2 g/dL (12.2-16.2); Lymphocytes # (auto) 0.9 10 ^3/uL (0.4-5.4); Lymphocytes % (auto) 19.8 % (10.0-50.0); Mean Corpuscular Hgb Conc. 31.5 g/dL (32.0-36.0); Mean Corpuscular Volume 69.9 fL (80.0-100.0); Monocytes # (auto) 0.5 10 ^3/uL (0-1.3); Monocytes % (auto) 11.9 % (0.0-12.0); Neutrophils # (auto) 2.8 10 ^3/uL (1.6-8.6); Neutrophils % (auto) 63.8 % (37.0-80.0); Nucleated Red Blood Cells % 0.1 %; Platelet Count (auto) 335 10^3/uL (140-450); Red Blood Cells 3.74 10^6/uL (4.0-5.20); White Blood Cell 4.4 10^3/uL (4.4-10.8)
[2024-08-21 06:08] LABS: Alanine Aminotransferase 14 U/L (7-40); Albumin 3.4 g/dL (3.2-4.8); Alkaline Phosphatase 94 U/L (46-116); Anion Gap 8 (5-15); Aspartate Aminotransferase 28 U/L (13-40); BUN/Creatinine Ratio 24.1 (10.0-20.0); Carbon Dioxide 26 mmol/L (20-31); Glucose 96 mg/dL (74-106); Potassium 3.7 mmol/L (3.5-5.1); Sodium 144 mmol/L (136-145); Total Protein 5.7 g/dL (5.7-8.2)
[2024-08-21 06:09] LABS: Bilirubin, Total 0.4 mg/dL (0.2-1.0)
[2024-08-21 06:22] LABS: Blood Urea Nitrogen 7 mg/dL (9-23); Chloride 110 mmol/L (98-107)
--- NOTE | 2024-08-21 07:40 | DVHPN2 ---
Reviewed: Care Plan, H&P, Labs, Medications, Previous Orders, Radiology Changes from previous H/P or p: No Changes Objective Vitals Vital Signs Date Time Temp Pulse Resp B/P (MAP) Pulse Ox O2 Delivery O2 Flow Rate FiO2 08/21/24 05:00 98.0 100 16 154/69 (97) 94 98.0 08/20/24 20:00 Room Air* 0 21 Intake/Output Intake and Output 08/21/24 07:00 Intake Total 1630 ml Output Total 700 ml Balance 930 ml Intake Oral 1080 ml IV Total 550 ml Output Urine Total 700 ml # Voids 1 # Bowel Movements 1 Medications Current Medications Medications Dose Ordered Sig/Chris Route Start Time Stop Time Status Last Admin Dose Admin Sodium Chloride 10 ml Q8HR IV 08/06/24 22:00 08/21/24 05:11 10 ML Docusate Sodium 100 mg BIDPRN PRN PO 08/06/24 18:15 Acetaminophen 650 mg Q6HP PRN PO 08/06/24 18:15 08/17/24 20:29 650 MG Ondansetron HCl 4 mg Q4HP PRN IV 08/06/24 18:15 08/15/24 15:17 4 MG Ertapenem 1 gm/ Sodium Chloride 50 ml @ 100 mls/hr DAILY IV 08/09/24 10:00 08/20/24 10:09 100 MLS/HR Pantoprazole Sodium 40 mg DAILY IV 08/13/24 10:00 08/20/24 10:09 40 MG Diagnostic Test (Pha) 1 strip Q6HR 08/14/24 00:00 08/21/24 05:12 1 STRIP Insulin Human Regular FOLLOW SLIDING SCALE Q6HR SC 08/14/24 00:00 08/20/24 05:36 2 UNITS Dextrose 50 ml UD IV 08/13/24 22:00 Enteral Nutritional Formula 240 ml TIDWM PO 08/14/24 12:00 08/20/24 17:59 240 ML Hydromorphone HCl 0.5 mg Q6HPRN PRN IV 08/15/24 22:00 08/16/24 22:22 0.5 MG Guaifenesin 200 mg Q6HP PRN PO 08/17/24 11:15 08/18/24 22:01 200 MG Amino Acids/ Electrolytes/ Dextrose 1,000 ml @ 41 mls/hr DAILY@2200 IV 08/17/24 22:00 Cancel Laboratory Results Laboratory Tests 08/21/24 05:09 Chemistry Test 08/21/24 05:09 Albumin 3.4 g/dL (3.2-4.8) Calcium Level 9.0 mg/dL (8.7-10.4) Total Protein 5.7 g/dL (5.7-8.2) LFT Test 08/21/24 05:09 Alanine Aminotransferase (ALT) 14 U/L (7-40) Alkaline Phosphatase 94 U/L (46-116) Aspartate Amino Transferase (AST) 28 U/L (13-40) Total Bilirubin 0.4 mg/dL (0.2-1.0) Urinalysis Test 08/18/24 18:57 Urine Color Light-yellow (Yellow) Urine Clarity Clear (Clear) Urine pH 8.0 (5.0-9.0) Urine Specific [place] 1.009 (1.001-1.035) Urine Protein Negative (Negative) Urine Ketones Negative (Negative) Urine Blood Negative /uL (Negative) Urine Nitrite Negative (Negative) Urine Bilirubin Negative (Negative) Urine Urobilinogen 2 mg/dL (Negative) H Urine Leukocyte Esterase Negative /uL (Negative) Urine RBC 2 /hpf (0 - 4) Urine Microscopic WBC 8 /HPF (0-5) H Urine Squamous Epithelial Cells Few /hpf (<5) Urine Bacteria None seen /hpf (None Seen) Urine Mucus Few (None Seen) Urine Glucose Normal mg/dL (Normal) Microbiology Microbiology Date/Time Source Procedure Growth Status 08/07/24 06:30 Stool Clostridium difficile Toxin Assay - Final Complete 08/06/24 14:55 Voided Urine Urine Culture - Final Escherichia coli - ESBL Complete Labs and/or images reviewed: Labs reviewed by me, Image(s) reviewed by me Assessment/Plan Assessment/Plan Adenocarcinoma hepatic flexure colon, Status post Laparoscopic right colectomy converted to open right colectomy by Dr Hicks on 08-12-24, Gastritis by EGD by Dr. Wilkins, Acute urinary tract infection: Urine cultures growing ESBL E coli: Continue Invanz History of anemia History of multiple blood transfusions Anemia hemoglobin 7.9: 1 unit RBC transfused during surgery hemoglobin now 9.8 Acute hypophosphatemia phosphorus 1.0, replace phosphorus, consult by Dr Langston appreciated Hypomagnesemia magnesium 1.5, IV magnesium 2 g times one Severe hypoalbuminemia albumin 2.8: Albumin transfusion Physical therapy ordered Patient is feeling better Advanced diet as tolerated Nutrition supplement : Ensure, clinimex discontinued as the patient is able to tolerate regular diet Continue current management Physical therapy ordered Continue current management Possible DC on Friday Plan discussed with: Patient Date of Service: Aug 21, 2024 Billing Provider: SHAWANDA TRAN MD Common Visit Codes: [id number] INP/OBS CARE(HIGH) SHAWANDA TRAN MD Aug 21, 2024 07:40
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
--- NOTE | 2024-08-21 22:59 | DVHPN2 ---
Progress Note - Dictate Date Seen: Aug 21, 2024 Medical Necessity Reason Pt with a Central, PICC or Fol: No Subjective No new complaints Patient is moving her bowels Patient states she has to use the restroom every time she eats She was out of bed to chair She is tolerating diet vital signs Vital Sign Date Time Temp Pulse Resp B/P (MAP) Pulse Ox O2 Delivery O2 Flow Rate FiO2 08/21/24 21:00 98.7 107 20 111/66 (81) 96 98.7 08/21/24 08:00 Room Air* 0 21 Total Intake and Output 08/20/24 08/20/24 08/21/24 15:00 23:00 07:00 Intake Total 550 ml 480 ml 600 ml Output Total 100 ml 600 ml Balance 550 ml 380 ml 0 ml medications Current Medications Medications Dose Ordered Sig/Chris Route Start Time Stop Time Status Last Admin Dose Admin Sodium Chloride 10 ml Q8HR IV 08/06/24 22:00 08/21/24 22:31 10 ML Docusate Sodium 100 mg BIDPRN PRN PO 08/06/24 18:15 Acetaminophen 650 mg Q6HP PRN PO 08/06/24 18:15 08/17/24 20:29 650 MG Ondansetron HCl 4 mg Q4HP PRN IV 08/06/24 18:15 08/15/24 15:17 4 MG Ertapenem 1 gm/ Sodium Chloride 50 ml @ 100 mls/hr DAILY IV 08/09/24 10:00 08/21/24 09:36 100 MLS/HR Pantoprazole Sodium 40 mg DAILY IV 08/13/24 10:00 08/21/24 09:36 40 MG Diagnostic Test (Pha) 1 strip Q6HR 08/14/24 00:00 08/21/24 17:03 1 STRIP Insulin Human Regular FOLLOW SLIDING SCALE Q6HR SC 08/14/24 00:00 08/20/24 05:36 2 UNITS Dextrose 50 ml UD IV 08/13/24 22:00 Enteral Nutritional Formula 240 ml TIDWM PO 08/14/24 12:00 08/21/24 18:55 240 ML Hydromorphone HCl 0.5 mg Q6HPRN PRN IV 08/15/24 22:00 08/16/24 22:22 0.5 MG Guaifenesin 200 mg Q6HP PRN PO 08/17/24 11:15 08/18/24 22:01 200 MG Amino Acids/ Electrolytes/ Dextrose 1,000 ml @ 41 mls/hr DAILY@2200 IV 08/17/24 22:00 Cancel objective GENERAL:Normal, ABDOMEN:Abnormal, SKIN:Abnormal laboratory and microbiology Laboratory Tests 08/21/24 05:09 Test 08/21/24 05:09 Range/Units Serum Glucose 96 74-106 mg/dL Problems(with codes): (1) Severe anemia (2) Unintentional weight loss (3) Acute metabolic encephalopathy (4) Generalized weakness (5) UTI (urinary tract infection) (6) Thrombocytosis Prognosis Plan Review final pathology results Continue PT Patient was encouraged to ambulate Advance diet as tolerated Monitor bowel activity Taper off IV antibiotics Dietary Evaluation Review Comments: 1) If patient remains NPO > 7 days, increase TPN to meet at least 75% of estimated needs 2) Advance to regular diet as medically feasible, pending ASSISTANT FEDERAL PUBLIC DEFENDER approval. Continue Ensure Enlive tid as previously ordered. Oral nutrition supplements provide 350 kcal and 20g Pro per 8 fl oz. 3) F/u with gastroenterology and oncology 4) Continue to monitor I&O, labs, and skin integrity. Oral nutrition supplements meet increased protein needs Expected Outcomes/Goals: 1) appetite and labs to improve 2) diet to advance 3) f/u in 2-3 days Plan discussed with: Patient SHREE VERIDN MD Aug 21, 2024 22:59
[2024-08-22] VITALS (9 sets, daily range): BP systolic 111–122; BP diastolic 54–76; PULSE 82–113; RESP 16–18; TEMP 97.8–99.1; O2SAT 92–100
--- NOTE | 2024-08-22 08:03 | DVHPN2 ---
Reviewed: Care Plan, H&P, Labs, Medications, Previous Orders, Radiology Changes from previous H/P or p: No Changes Objective Vitals Vital Signs Date Time Temp Pulse Resp B/P (MAP) Pulse Ox O2 Delivery O2 Flow Rate FiO2 08/22/24 04:54 98.1 82 16 113/68 (83) 100 98.1 08/21/24 20:00 Room Air* 0 21 Intake/Output Intake and Output 08/22/24 07:00 Intake Total 1384 ml Output Total 600 ml Balance 784 ml Intake Oral 1334 ml IV Total 50 ml Output Urine Total 600 ml # Voids 1 # Bowel Movements 1 Medications Current Medications Medications Dose Ordered Sig/Chris Route Start Time Stop Time Status Last Admin Dose Admin Sodium Chloride 10 ml Q8HR IV 08/06/24 22:00 08/22/24 06:00 10 ML Docusate Sodium 100 mg BIDPRN PRN PO 08/06/24 18:15 Acetaminophen 650 mg Q6HP PRN PO 08/06/24 18:15 08/17/24 20:29 650 MG Ondansetron HCl 4 mg Q4HP PRN IV 08/06/24 18:15 08/15/24 15:17 4 MG Ertapenem 1 gm/ Sodium Chloride 50 ml @ 100 mls/hr DAILY IV 08/09/24 10:00 08/21/24 09:36 100 MLS/HR Pantoprazole Sodium 40 mg DAILY IV 08/13/24 10:00 08/21/24 09:36 40 MG Diagnostic Test (Pha) 1 strip Q6HR 08/14/24 00:00 08/22/24 06:00 1 STRIP Insulin Human Regular FOLLOW SLIDING SCALE Q6HR SC 08/14/24 00:00 08/20/24 05:36 2 UNITS Dextrose 50 ml UD IV 08/13/24 22:00 Enteral Nutritional Formula 240 ml TIDWM PO 08/14/24 12:00 08/21/24 18:55 240 ML Hydromorphone HCl 0.5 mg Q6HPRN PRN IV 08/15/24 22:00 08/16/24 22:22 0.5 MG Guaifenesin 200 mg Q6HP PRN PO 08/17/24 11:15 08/18/24 22:01 200 MG Amino Acids/ Electrolytes/ Dextrose 1,000 ml @ 41 mls/hr DAILY@2200 IV 08/17/24 22:00 Cancel Laboratory Results Laboratory Tests 08/21/24 05:09 Urinalysis Test 08/18/24 18:57 Urine Color Light-yellow (Yellow) Urine Clarity Clear (Clear) Urine pH 8.0 (5.0-9.0) Urine Specific [place] 1.009 (1.001-1.035) Urine Protein Negative (Negative) Urine Ketones Negative (Negative) Urine Blood Negative /uL (Negative) Urine Nitrite Negative (Negative) Urine Bilirubin Negative (Negative) Urine Urobilinogen 2 mg/dL (Negative) H Urine Leukocyte Esterase Negative /uL (Negative) Urine RBC 2 /hpf (0 - 4) Urine Microscopic WBC 8 /HPF (0-5) H Urine Squamous Epithelial Cells Few /hpf (<5) Urine Bacteria None seen /hpf (None Seen) Urine Mucus Few (None Seen) Urine Glucose Normal mg/dL (Normal) Microbiology Microbiology Date/Time Source Procedure Growth Status 08/07/24 06:30 Stool Clostridium difficile Toxin Assay - Final Complete 08/06/24 14:55 Voided Urine Urine Culture - Final Escherichia coli - ESBL Complete Labs and/or images reviewed: Labs reviewed by me, Image(s) reviewed by me Assessment/Plan Assessment/Plan Adenocarcinoma hepatic flexure colon, Status post Laparoscopic right colectomy converted to open right colectomy by Dr Hicks on 08-12-24, Gastritis by EGD by Dr. Wilkins, Acute urinary tract infection: Urine cultures growing ESBL E coli: Treated with Invanz History of anemia History of multiple blood transfusions Anemia hemoglobin 7.9: 1 unit RBC transfused during surgery hemoglobin now 9.8 Acute hypophosphatemia phosphorus 1.0, replace phosphorus, consult by Dr Langston appreciated Hypomagnesemia magnesium 1.5, IV magnesium 2 g times one Severe hypoalbuminemia albumin 2.8: Albumin transfusion Physical therapy ordered Patient is feeling better Advanced diet as tolerated Nutrition supplement : Ensure, clinimex discontinued as the patient is able to tolerate regular diet Patient is still feeling very weak Physical therapy ordered Possible discharge in one or two days Plan discussed with: Patient Date of Service: Aug 22, 2024 Billing Provider: SHAWANDA TRAN MD Common Visit Codes: [id number] INP/OBS CARE(HIGH) SHAWANDA TRAN MD Aug 22, 2024 08:03
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
--- NOTE | 2024-08-22 13:30 | DVH ---
EXAM: US ABDOMEN LIMITED Clinical History: Possible incision drainage Comparison: None Technique: Grayscale ultrasound of the abdominal soft tissues performed with color Doppler and spect ral/pulsed waveform as indicated. Findings/Impression: In the abdominal wall soft tissues superior to the umbilicus, there is a 4.0 x 2.6 x 8.0 cm anechoic lesion with internal echoes and minimal peripheral vascularity. Findings may reflect a postoperative seroma. Abscess not excluded.
--- NOTE | 2024-08-22 21:25 | DVHPN2 ---
Progress Note - Dictate Date Seen: Aug 22, 2024 Medical Necessity Reason Pt with a Central, PICC or Fol: Yes The following are medically ne: Zuleta Catheter Reason for zuleta catheter: Bladder Retention/Obstruc Subjective No new complaints Patient is moving her bowels Patient states she has to use the restroom every time she eats She was out of bed to chair She is tolerating diet vital signs Vital Sign Date Time Temp Pulse Resp B/P (MAP) Pulse Ox O2 Delivery O2 Flow Rate FiO2 08/22/24 21:06 99.1 104 18 111/68 (82) 95 99.1 08/22/24 08:00 Room Air* 0 21 Total Intake and Output 08/21/24 08/21/24 08/22/24 15:00 23:00 07:00 Intake Total 50 ml 834 ml 500 ml Output Total 500 ml 100 ml Balance 50 ml 334 ml 400 ml medications Current Medications Medications Dose Ordered Sig/Chris Route Start Time Stop Time Status Last Admin Dose Admin Sodium Chloride 10 ml Q8HR IV 08/06/24 22:00 08/22/24 15:21 10 ML Docusate Sodium 100 mg BIDPRN PRN PO 08/06/24 18:15 Acetaminophen 650 mg Q6HP PRN PO 08/06/24 18:15 08/17/24 20:29 650 MG Ondansetron HCl 4 mg Q4HP PRN IV 08/06/24 18:15 08/15/24 15:17 4 MG Pantoprazole Sodium 40 mg DAILY IV 08/13/24 10:00 08/22/24 09:56 40 MG Enteral Nutritional Formula 240 ml TIDWM PO 08/14/24 12:00 08/22/24 18:24 240 ML Hydromorphone HCl 0.5 mg Q6HPRN PRN IV 08/15/24 22:00 08/16/24 22:22 0.5 MG Guaifenesin 200 mg Q6HP PRN PO 08/17/24 11:15 08/18/24 22:01 200 MG Amino Acids/ Electrolytes/ Dextrose 1,000 ml @ 41 mls/hr DAILY@2200 IV 08/17/24 22:00 Cancel objective GENERAL:Normal, ABDOMEN:Abnormal, SKIN:Abnormal laboratory and microbiology Laboratory Tests 08/21/24 05:09 Test 3/29/25 05:09 Range/Units Serum Glucose 96 74-106 mg/dL Problems(with codes): (1) Unintentional weight loss (2) Acute metabolic encephalopathy (3) Generalized weakness (4) Primary adenocarcinoma of ascending colon and hepatic flexure Prognosis Plan Patient is postop day 10. S/P open right hemicolectomy Continue PT and rehab Check final pathology report Get oncology consultation Dietary Evaluation Review Comments: 1) If patient remains NPO > 7 days, increase TPN to meet at least 75% of estimated needs 2) Advance to regular diet as medically feasible, pending SHAREPOINT CONSULTANT approval. Continue Ensure Enlive tid as previously ordered. Oral nutrition supplements provide 350 kcal and 20g Pro per 8 fl oz. 3) F/u with gastroenterology and oncology 4) Continue to monitor I&O, labs, and skin integrity. Oral nutrition supplements meet increased protein needs Expected Outcomes/Goals: 1) appetite and labs to improve 2) diet to advance 3) f/u in 2-3 days Plan discussed with: Patient SHREE VERDIN MD Aug 22, 2024 21:25
[2024-08-23] VITALS (9 sets, daily range): BP systolic 100–123; BP diastolic 57–73; PULSE 70–103; RESP 15–20; TEMP 97.7–98.9; O2SAT 92–97
[2024-08-23 06:50] LABS: Basophils # (auto) 0 10 ^3/uL (0-0.2); Basophils % (auto) 0.4 % (0.0-2.0); Eosinophils # (auto) 0.2 10 ^3/uL (0-0.8); Eosinophils % (auto) 3.7 % (0.0-7.0); Hemoglobin 8.3 g/dL (12.2-16.2); Mean Corpuscular Hemoglobin 22.4 pg (28.0-32.0); Monocytes # (auto) 0.6 10 ^3/uL (0-1.3); White Blood Cell 5.1 10^3/uL (4.4-10.8)
[2024-08-23 06:53] LABS: Hematocrit 25.9 % (36.0-46.0); Lymphocytes # (auto) 0.9 10 ^3/uL (0.4-5.4); Mean Corpuscular Hgb Conc. 32.1 g/dL (32.0-36.0); Mean Corpuscular Volume 69.8 fL (80.0-100.0); Monocytes % (auto) 11.5 % (0.0-12.0); Neutrophils # (auto) 3.4 10 ^3/uL (1.6-8.6); Neutrophils % (auto) 66.4 % (37.0-80.0); Nucleated Red Blood Cells % 0.1 %; Platelet Count (auto) 357 10^3/uL (140-450)
[2024-08-23 07:02] LABS: Alanine Aminotransferase 14 U/L (7-40); Albumin 3.5 g/dL (3.2-4.8); Alkaline Phosphatase 103 U/L (46-116); Anion Gap 7 (5-15); Aspartate Aminotransferase 24 U/L (13-40); BUN/Creatinine Ratio 21.2 (10.0-20.0); Calcium 9.1 mg/dL (8.7-10.4); Carbon Dioxide 27 mmol/L (20-31); Glucose 102 mg/dL (74-106); Potassium 3.9 mmol/L (3.5-5.1); Sodium 143 mmol/L (136-145)
[2024-08-23 07:03] LABS: Bilirubin, Total 0.3 mg/dL (0.2-1.0); Blood Urea Nitrogen 7 mg/dL (9-23); Chloride 109 mmol/L (98-107)
[2024-08-23 07:07] LABS: Red Cell Distribution Width 31.5 % (11.8-14.3)
[2024-08-23] MEDS ORDERED: LEVO500T91 PO (13:25)
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
--- NOTE | 2024-08-23 14:28 | DVHPN2 ---
Subjective Patient denies any symptoms Reviewed: Care Plan, H&P, Labs, Medications, Previous Orders, Radiology Changes from previous H/P or p: No Changes General: Per HPI Objective Vitals Vital Signs Date Time Temp Pulse Resp B/P (MAP) Pulse Ox O2 Delivery O2 Flow Rate FiO2 08/23/24 13:00 98.1 103 20 105/67 (80) 95 98.1 08/23/24 07:51 Room Air* 0 21 Intake/Output Intake and Output 08/23/24 06:59 Intake Total 950 ml Output Total 1250 ml Balance -300 ml Intake Oral 950 ml Output Urine Total 1250 ml # Bowel Movements 1 General Appearance: Alert, Oriented X3, Cooperative, No acute distress HEENT: Atraumatic, PERRLA Lungs: Clear to auscultation, Normal air movement Cardiovascular: Normal S1, Normal S2 Abdomen: Normal bowel sounds, Soft, Other (Redness, induration with? Abscess to superior of umbilical area and right of surgical site) Genitourinary: No Apparent Abnormalities (Tejada catheter) Musculoskeletal: Normal sensory function, Normal motor function Psych/Mental Status: Mental status NL, Mood NL Medications Current Medications Medications Dose Ordered Sig/Chris Route Start Time Stop Time Status Last Admin Dose Admin Sodium Chloride 10 ml Q8HR IV 08/06/24 22:00 08/23/24 05:54 10 ML Docusate Sodium 100 mg BIDPRN PRN PO 08/06/24 18:15 Acetaminophen 650 mg Q6HP PRN PO 08/06/24 18:15 08/17/24 20:29 650 MG Ondansetron HCl 4 mg Q4HP PRN IV 08/06/24 18:15 08/15/24 15:17 4 MG Pantoprazole Sodium 40 mg DAILY IV 08/13/24 10:00 08/23/24 11:33 40 MG Enteral Nutritional Formula 240 ml TIDWM PO 08/14/24 12:00 08/23/24 08:00 240 ML Hydromorphone HCl 0.5 mg Q6HPRN PRN IV 08/15/24 22:00 08/16/24 22:22 0.5 MG Guaifenesin 200 mg Q6HP PRN PO 08/17/24 11:15 08/18/24 22:01 200 MG Amino Acids/ Electrolytes/ Dextrose 1,000 ml @ 41 mls/hr DAILY@2200 IV 08/17/24 22:00 Cancel Laboratory Results Laboratory Tests 08/23/24 06:27 Chemistry Test 08/23/24 06:27 Albumin 3.5 g/dL (3.2-4.8) Calcium Level 9.1 mg/dL (8.7-10.4) Total Protein 6.0 g/dL (5.7-8.2) LFT Test 08/23/24 06:27 Alanine Aminotransferase (ALT) 14 U/L (7-40) Alkaline Phosphatase 103 U/L (46-116) Aspartate Amino Transferase (AST) 24 U/L (13-40) Total Bilirubin 0.3 mg/dL (0.2-1.0) Urinalysis Test 08/18/24 18:57 Urine Color Light-yellow (Yellow) Urine Clarity Clear (Clear) Urine pH 8.0 (5.0-9.0) Urine Specific [place] 1.009 (1.001-1.035) Urine Protein Negative (Negative) Urine Ketones Negative (Negative) Urine Blood Negative /uL (Negative) Urine Nitrite Negative (Negative) Urine Bilirubin Negative (Negative) Urine Urobilinogen 2 mg/dL (Negative) H Urine Leukocyte Esterase Negative /uL (Negative) Urine RBC 2 /hpf (0 - 4) Urine Microscopic WBC 8 /HPF (0-5) H Urine Squamous Epithelial Cells Few /hpf (<5) Urine Bacteria None seen /hpf (None Seen) Urine Mucus Few (None Seen) Urine Glucose Normal mg/dL (Normal) Microbiology Microbiology Date/Time Source Procedure Growth Status 08/07/24 06:30 Stool Clostridium difficile Toxin Assay - Final Complete 08/06/24 14:55 Voided Urine Urine Culture - Final Escherichia coli - ESBL Complete Labs and/or images reviewed: Labs reviewed by me, Image(s) reviewed by me Assessment/Plan Assessment/Plan Impression: -adenocarcinoma, status post right hemicolectomy -probable metastatic carcinoma -abdominal abscess to surgical site -normocytic anemia -complicated cystitis with ESBL Plan: -discussed case with surgery. Abdominal wound had removal of bonnie with noted pustulant drainage -restart antibiotic therapy with Levaquin and Flagyl -continue advancing diet -pain management -PUD prophylaxis -out of bed as tolerated, increase ambulation -hold discharge for today. -discussed case with Oncology. Patient will follow up with Dr. Marie Bell as outpatient Total time spent with patient discussing and formulating plan of care: 35 minutes. Total time spent with patient and family regarding advance care plannin minutes. This medical document was created using an electronic medical record system with [employer] dictation system. Although this document has been carefully reviewed, there may still be some phonetic and typographical errors. These areas are purely typographical due to imperfections of the software programs, and do not reflect any compromise in the patient's medical care. Plan discussed with: Patient, Other (RN) Date of Service: Aug 23, 2024 Billing Provider: ANA GONZALEZ NP Common Visit Codes: [id number] INP/OBS CARE(HIGH) Secondary Visit Codes: [id number] CARE PLAN 30 MINUTES ANA GONZALEZ NP Aug 23, 2024 14:28
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
[2024-08-23] MEDS: levoFLOXacin 500MG 100 ML IV SCH (17:01)
[2024-08-23] MEDS: metroNIDAZOLE 500MG/100ML 100 ML IV SCH (21:18)
[2024-08-24] VITALS (8 sets, daily range): BP systolic 100–110; BP diastolic 54–70; PULSE 71–103; RESP 16–19; TEMP 94–99.2; O2SAT 95–98
--- NOTE | 2024-08-24 10:34 | DVHPN2 ---
Subjective Patient denies any symptoms Reviewed: Care Plan, H&P, Labs, Medications, Previous Orders, Radiology Changes from previous H/P or p: No Changes General: Per HPI Objective Vitals Vital Signs Date Time Temp Pulse Resp B/P (MAP) Pulse Ox O2 Delivery O2 Flow Rate FiO2 08/24/24 09:00 99.2 97 16 106/70 (82) 97 99.2 08/24/24 08:00 Room Air* 0 21 Intake/Output Intake and Output 08/24/24 07:00 Intake Total 1400 ml Output Total 925 ml Balance 475 ml Intake Oral 1200 ml IV Total 200 ml Output Urine Total 925 ml # Bowel Movements 1 General Appearance: Alert, Oriented X3, Cooperative, No acute distress HEENT: Atraumatic, PERRLA Lungs: Clear to auscultation, Normal air movement Cardiovascular: Normal S1, Normal S2 Abdomen: Normal bowel sounds, Soft, Other (Redness, induration with? Abscess to superior of umbilical area and right of surgical site) Genitourinary: No Apparent Abnormalities ([place] catheter) Musculoskeletal: Normal sensory function, Normal motor function Skin: Dry, Intact Psych/Mental Status: Mental status NL, Mood NL Medications Current Medications Medications Dose Ordered Sig/Chris Route Start Time Stop Time Status Last Admin Dose Admin Sodium Chloride 10 ml Q8HR IV 08/06/24 22:00 08/24/24 05:23 10 ML Docusate Sodium 100 mg BIDPRN PRN PO 08/06/24 18:15 Acetaminophen 650 mg Q6HP PRN PO 08/06/24 18:15 08/17/24 20:29 650 MG Ondansetron HCl 4 mg Q4HP PRN IV 08/06/24 18:15 08/15/24 15:17 4 MG Pantoprazole Sodium 40 mg DAILY IV 08/13/24 10:00 08/24/24 09:49 40 MG Enteral Nutritional Formula 240 ml TIDWM PO 08/14/24 12:00 08/24/24 08:00 240 ML Hydromorphone HCl 0.5 mg Q6HPRN PRN IV 08/15/24 22:00 08/16/24 22:22 0.5 MG Guaifenesin 200 mg Q6HP PRN PO 08/17/24 11:15 08/18/24 22:01 200 MG Amino Acids/ Electrolytes/ Dextrose 1,000 ml @ 41 mls/hr DAILY@2200 IV 08/17/24 22:00 Cancel Metronidazole 100 ml @ 100 mls/hr Q8HR IV 08/23/24 22:00 08/24/24 05:20 100 MLS/HR Levofloxacin/ Dextrose 100 ml @ 100 mls/hr DAILY IV 08/23/24 14:30 08/24/24 09:49 100 MLS/HR Laboratory Results Laboratory Tests 08/23/24 06:27 Urinalysis Test 08/18/24 18:57 Urine Color Light-yellow (Yellow) Urine Clarity Clear (Clear) Urine pH 8.0 (5.0-9.0) Urine Specific [place] 1.009 (1.001-1.035) Urine Protein Negative (Negative) Urine Ketones Negative (Negative) Urine Blood Negative /uL (Negative) Urine Nitrite Negative (Negative) Urine Bilirubin Negative (Negative) Urine Urobilinogen 2 mg/dL (Negative) H Urine Leukocyte Esterase Negative /uL (Negative) Urine RBC 2 /hpf (0 - 4) Urine Microscopic WBC 8 /HPF (0-5) H Urine Squamous Epithelial Cells Few /hpf (<5) Urine Bacteria None seen /hpf (None Seen) Urine Mucus Few (None Seen) Urine Glucose Normal mg/dL (Normal) Microbiology Microbiology Date/Time Source Procedure Growth Status 08/22/24 21:26 Urine - [place] Urine Culture - Preliminary Resulted 08/07/24 06:30 Stool Clostridium difficile Toxin Assay - Final Complete Labs and/or images reviewed: Labs reviewed by me, Image(s) reviewed by me Assessment/Plan Assessment/Plan Impression: -adenocarcinoma, status post right hemicolectomy -probable metastatic carcinoma -abdominal abscess to surgical site -normocytic anemia -complicated cystitis with ESBL Plan: Events: No events overnight. Wound continues to have significant amount of drainage. Continue daily packing of wound. Once drainage has decreased, wound VAC will be placed. This was discussed with the patient. All questions answered. -restart antibiotic therapy with Levaquin and Flagyl -continue advancing diet -pain management -PUD prophylaxis -out of bed as tolerated, increase ambulation -discussed case with Oncology. Patient will follow up with Dr. Marie Bell as outpatient Total time spent with patient discussing and formulating plan of care: 35 minutes. This medical document was created using an electronic medical record system with Dragon computerized dictation system. Although this document has been carefully reviewed, there may still be some phonetic and typographical errors. These areas are purely typographical due to imperfections of the software programs, and do not reflect any compromise in the patient's medical care. Plan discussed with: Patient, Other (RN) My Orders Orders - ANA GONZALEZ NP Procedure Category Date Status Time Metronidazole PHA 08/23/24 In Process 500mg/100ml (Flagyl 22:00 Levofloxacin 500mg PHA 08/23/24 In Process (Levaquin 500mg/ 100m 14:30 Basic Metabolic Panel LAB 08/24/24 Logged 08:50 Complete Blood Count LAB 08/24/24 Logged 08:50 Complete Blood Count LAB 08/25/24 Verified 04:00 Date of Service: Aug 24, 2024 Billing Provider: ANA GONZALEZ NP Common Visit Codes: [id number] INP/OBS CARE(HIGH) ANA GONZALEZ NP Aug 24, 2024 10:34
[2024-08-24 11:14] LABS: Basophils # (auto) 0 10 ^3/uL (0-0.2); Eosinophils # (auto) 0.1 10 ^3/uL (0-0.8); Lymphocytes # (auto) 0.8 10 ^3/uL (0.4-5.4); Mean Corpuscular Volume 70.6 fL (80.0-100.0); Monocytes # (auto) 0.4 10 ^3/uL (0-1.3); Nucleated Red Blood Cells % 0.1 %
[2024-08-24 11:15] LABS: Basophils % (auto) 0.2 % (0.0-2.0); Eosinophils % (auto) 2.8 % (0.0-7.0); Hematocrit 29.4 % (36.0-46.0); Lymphocytes % (auto) 15.5 % (10.0-50.0); Mean Corpuscular Hemoglobin 21.6 pg (28.0-32.0); Mean Corpuscular Hgb Conc. 30.6 g/dL (32.0-36.0); Monocytes % (auto) 7.5 % (0.0-12.0); Neutrophils # (auto) 3.6 10 ^3/uL (1.6-8.6); Platelet Count (auto) 414 10^3/uL (140-450); Red Blood Cells 4.16 10^6/uL (4.0-5.20); Red Cell Distribution Width 30.5 % (11.8-14.3); White Blood Cell 4.9 10^3/uL (4.4-10.8)
[2024-08-24 11:24] LABS: Potassium 3.6 mmol/L (3.5-5.1); Sodium 142 mmol/L (136-145)
[2024-08-24 11:25] LABS: Anion Gap 8 (5-15); Calcium 9.1 mg/dL (8.7-10.4); Carbon Dioxide 25 mmol/L (20-31); Chloride 109 mmol/L (98-107)
[2024-08-24 11:30] LABS: BUN/Creatinine Ratio 22.5 (10.0-20.0)
[2024-08-24 11:33] LABS: Blood Urea Nitrogen 9 mg/dL (9-23); Glucose 146 mg/dL (74-106)
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
--- NOTE | 2024-08-24 21:21 | DVHPN2 ---
Progress Note - Dictate Date Seen: Aug 24, 2024 Medical Necessity Reason Pt with a Central, PICC or Fol: Yes The following are medically ne: Zuleta Catheter Reason for zuleta catheter: Bladder Retention/Obstruc Subjective No new complaints Patient is moving her bowels She was out of bed to chair She is tolerating diet vital signs Vital Sign Date Time Temp Pulse Resp B/P (MAP) Pulse Ox O2 Delivery O2 Flow Rate FiO2 08/24/24 21:00 97.6 91 19 109/56 (73) 98 97.6 08/24/24 08:00 Room Air* 0 21 Total Intake and Output 08/23/24 08/23/24 08/24/24 15:00 23:00 07:00 Intake Total 1000 ml 400 ml Output Total 400 ml 525 ml Balance 600 ml -125 ml medications Current Medications Medications Dose Ordered Sig/Chris Route Start Time Stop Time Status Last Admin Dose Admin Sodium Chloride 10 ml Q8HR IV 08/06/24 22:00 08/24/24 13:48 10 ML Docusate Sodium 100 mg BIDPRN PRN PO 08/06/24 18:15 Acetaminophen 650 mg Q6HP PRN PO 08/06/24 18:15 08/17/24 20:29 650 MG Ondansetron HCl 4 mg Q4HP PRN IV 08/06/24 18:15 08/15/24 15:17 4 MG Pantoprazole Sodium 40 mg DAILY IV 08/13/24 10:00 08/24/24 09:49 40 MG Enteral Nutritional Formula 240 ml TIDWM PO 08/14/24 12:00 08/24/24 18:04 240 ML Hydromorphone HCl 0.5 mg Q6HPRN PRN IV 08/15/24 22:00 08/16/24 22:22 0.5 MG Guaifenesin 200 mg Q6HP PRN PO 08/17/24 11:15 08/18/24 22:01 200 MG Amino Acids/ Electrolytes/ Dextrose 1,000 ml @ 41 mls/hr DAILY@2200 IV 08/17/24 22:00 Cancel Metronidazole 100 ml @ 100 mls/hr Q8HR IV 08/23/24 22:00 08/24/24 13:48 100 MLS/HR Levofloxacin/ Dextrose 100 ml @ 100 mls/hr DAILY IV 08/23/24 14:30 08/24/24 09:49 100 MLS/HR objective GENERAL:Normal, ABDOMEN:Abnormal, SKIN:Abnormal laboratory and microbiology Laboratory Tests 08/24/24 10:17 Test 08/24/24 10:17 Range/Units Serum Glucose 146 H 74-106 mg/dL Problems(with codes): (1) Wound abscess (2) Primary adenocarcinoma of ascending colon and hepatic flexure (3) Generalized weakness Prognosis A/P s/p laparoscopic colectomy converted to open post op day 11 wound was packed with saturated kerlix, ABD Plan: wound dressing change in 24 hours wound consult tomorrow for wound vac continue IV antibiotics leave abdominal binder off Discharge planning as per hospitalist Dietary Evaluation Review Comments: 1) If patient remains NPO > 7 days, increase TPN to meet at least 75% of estimated needs 2) Advance to regular diet as medically feasible, pending PROGRAM DIRECTOR/TRAFFIC DIRECTOR approval. Continue Ensure Enlive tid as previously ordered. Oral nutrition supplements provide 350 kcal and 20g Pro per 8 fl oz. 3) F/u with gastroenterology and oncology 4) Continue to monitor I&O, labs, and skin integrity. Oral nutrition supplements meet increased protein needs Expected Outcomes/Goals: 1) appetite and labs to improve 2) diet to advance 3) f/u in 2-3 days Plan discussed with: Patient SHREE VERDIN MD Aug 24, 2024 21:21
[2024-08-25] VITALS (9 sets, daily range): BP systolic 97–112; BP diastolic 50–74; PULSE 69–103; RESP 16–18; TEMP 97.5–98.6; O2SAT 94–99
[2024-08-25 07:55] LABS: Basophils # (auto) 0 10 ^3/uL (0-0.2); Basophils % (auto) 0.6 % (0.0-2.0); Eosinophils # (auto) 0.2 10 ^3/uL (0-0.8); Neutrophils # (auto) 2.4 10 ^3/uL (1.6-8.6)
[2024-08-25 07:58] LABS: Eosinophils % (auto) 4.5 % (0.0-7.0); Hematocrit 27.2 % (36.0-46.0); Hemoglobin 8.7 g/dL (12.2-16.2); Lymphocytes % (auto) 25.1 % (10.0-50.0); Mean Corpuscular Hemoglobin 22.7 pg (28.0-32.0); Mean Corpuscular Hgb Conc. 32.1 g/dL (32.0-36.0); Mean Corpuscular Volume 70.7 fL (80.0-100.0); Monocytes # (auto) 0.4 10 ^3/uL (0-1.3); Monocytes % (auto) 11.1 % (0.0-12.0); Neutrophils % (auto) 58.7 % (37.0-80.0); Nucleated Red Blood Cells % 0.1 %; Platelet Count (auto) 396 10^3/uL (140-450); Red Blood Cells 3.85 10^6/uL (4.0-5.20)
--- NOTE | 2024-08-25 16:41 | DVHPN2 ---
Progress Note - Dictate Date Seen: Aug 25, 2024 Medical Necessity Reason Pt with a Central, PICC or Fol: Yes The following are medically ne: Zuleta Catheter Reason for zuleta catheter: Bladder Retention/Obstruc Subjective No new complaints Patient is moving her bowels She was out of bed to chair She is tolerating diet vital signs Vital Sign Date Time Temp Pulse Resp B/P (MAP) Pulse Ox O2 Delivery O2 Flow Rate FiO2 08/25/24 13:00 97.8 91 18 98/55 (69) 94 97.8 08/25/24 08:00 Room Air* 0 21 Total Intake and Output 08/24/24 08/24/24 08/25/24 15:00 23:00 07:00 Intake Total 360 ml 980 ml 540 ml Output Total 900 ml 875 ml Balance 360 ml 80 ml -335 ml medications Current Medications Medications Dose Ordered Sig/Chris Route Start Time Stop Time Status Last Admin Dose Admin Sodium Chloride 10 ml Q8HR IV 08/06/24 22:00 08/25/24 14:17 10 ML Docusate Sodium 100 mg BIDPRN PRN PO 08/06/24 18:15 Acetaminophen 650 mg Q6HP PRN PO 08/06/24 18:15 08/24/24 21:48 650 MG Ondansetron HCl 4 mg Q4HP PRN IV 08/06/24 18:15 08/15/24 15:17 4 MG Pantoprazole Sodium 40 mg DAILY IV 08/13/24 10:00 08/25/24 09:15 40 MG Enteral Nutritional Formula 240 ml TIDWM PO 08/14/24 12:00 08/24/24 18:04 240 ML Hydromorphone HCl 0.5 mg Q6HPRN PRN IV 08/15/24 22:00 08/16/24 22:22 0.5 MG Guaifenesin 200 mg Q6HP PRN PO 08/17/24 11:15 08/18/24 22:01 200 MG Amino Acids/ Electrolytes/ Dextrose 1,000 ml @ 41 mls/hr DAILY@2200 IV 08/17/24 22:00 Cancel Metronidazole 100 ml @ 100 mls/hr Q8HR IV 08/23/24 22:00 08/25/24 14:18 100 MLS/HR Levofloxacin/ Dextrose 100 ml @ 100 mls/hr DAILY IV 08/23/24 14:30 08/25/24 09:15 100 MLS/HR objective GENERAL:Normal, ABDOMEN:Abnormal, SKIN:Abnormal laboratory and microbiology Laboratory Tests 08/25/24 07:00 08/24/24 10:17 Test 08/24/24 10:17 Range/Units Serum Glucose 146 H 74-106 mg/dL Problems(with codes): (1) Wound abscess (2) Primary adenocarcinoma of ascending colon and hepatic flexure (3) Thrombocytosis (4) Severe anemia Prognosis Plan: Wound dressing change and wound vac consult continue IV antibiotics leave abdominal binder off Discharge planning as per hospitalist Outpatient follow up with oncologist for any ongoing chemotherapy require Dietary Evaluation Review Comments: 1) If patient remains NPO > 7 days, increase TPN to meet at least 75% of estimated needs 2) Advance to regular diet as medically feasible, pending PHOTOGRAMMETRIC TECHNICIAN approval. Continue Ensure Enlive tid as previously ordered. Oral nutrition supplements provide 350 kcal and 20g Pro per 8 fl oz. 3) F/u with gastroenterology and oncology 4) Continue to monitor I&O, labs, and skin integrity. Oral nutrition supplements meet increased protein needs Expected Outcomes/Goals: 1) appetite and labs to improve 2) diet to advance 3) f/u in 2-3 days Plan discussed with: Patient SHREE VERDIN MD Aug 25, 2024 16:41
[2024-08-26 01:00] VITALS: BP 101/64; PULSE 87; RESP 16; TEMP 98.5; O2SAT 100
[2024-08-26 05:00] VITALS: BP 111/71; PULSE 96; RESP 16; TEMP 98.7; O2SAT 96
[2024-08-26 08:00] VITALS: PULSE 74; PULSE 90; RESP 15; O2SAT 99
[2024-08-26 08:38] VITALS: BP 111/69; PULSE 74; RESP 15; TEMP 98.4; O2SAT 99
--- NOTE | 2024-08-26 09:52 | DVHPN2 ---
Subjective Patient denies any symptoms Reviewed: Care Plan, H&P, Labs, Medications, Previous Orders, Radiology Changes from previous H/P or p: No Changes General: Per HPI Objective Vitals Vital Signs Date Time Temp Pulse Resp B/P (MAP) Pulse Ox O2 Delivery O2 Flow Rate FiO2 08/26/24 08:38 98.4 74 15 111/69 (83) 99 98.4 08/26/24 08:00 Room Air* 0 21 Intake/Output Intake and Output 08/26/24 07:00 Intake Total 1210 ml Output Total 975 ml Balance 235 ml Intake Oral 810 ml IV Total 400 ml Output Urine Total 975 ml # Bowel Movements 1 General Appearance: Alert, Oriented X3, Cooperative, No acute distress HEENT: Atraumatic, PERRLA Lungs: Clear to auscultation, Normal air movement Cardiovascular: Normal S1, Normal S2 Abdomen: Normal bowel sounds, Soft, Other (Redness, induration with? Abscess to superior of umbilical area and right of surgical site) Genitourinary: No Apparent Abnormalities ([place] catheter) Musculoskeletal: Normal sensory function, Normal motor function Skin: Dry, Intact Psych/Mental Status: Mental status NL, Mood NL Medications Current Medications Medications Dose Ordered Sig/Chris Route Start Time Stop Time Status Last Admin Dose Admin Sodium Chloride 10 ml Q8HR IV 08/06/24 22:00 08/26/24 05:22 10 ML Docusate Sodium 100 mg BIDPRN PRN PO 08/06/24 18:15 Acetaminophen 650 mg Q6HP PRN PO 08/06/24 18:15 08/24/24 21:48 650 MG Ondansetron HCl 4 mg Q4HP PRN IV 08/06/24 18:15 08/15/24 15:17 4 MG Pantoprazole Sodium 40 mg DAILY IV 08/13/24 10:00 08/26/24 09:25 40 MG Enteral Nutritional Formula 240 ml TIDWM PO 08/14/24 12:00 08/26/24 08:00 240 ML Hydromorphone HCl 0.5 mg Q6HPRN PRN IV 08/15/24 22:00 08/16/24 22:22 0.5 MG Guaifenesin 200 mg Q6HP PRN PO 08/17/24 11:15 08/18/24 22:01 200 MG Amino Acids/ Electrolytes/ Dextrose 1,000 ml @ 41 mls/hr DAILY@2200 IV 08/17/24 22:00 Cancel Metronidazole 100 ml @ 100 mls/hr Q8HR IV 08/23/24 22:00 08/26/24 05:18 100 MLS/HR Levofloxacin/ Dextrose 100 ml @ 100 mls/hr DAILY IV 08/23/24 14:30 08/26/24 09:26 100 MLS/HR Laboratory Results Laboratory Tests 08/24/24 10:17 08/25/24 07:00 Urinalysis Test 08/18/24 18:57 Urine Color Light-yellow (Yellow) Urine Clarity Clear (Clear) Urine pH 8.0 (5.0-9.0) Urine Specific [place] 1.009 (1.001-1.035) Urine Protein Negative (Negative) Urine Ketones Negative (Negative) Urine Blood Negative /uL (Negative) Urine Nitrite Negative (Negative) Urine Bilirubin Negative (Negative) Urine Urobilinogen 2 mg/dL (Negative) H Urine Leukocyte Esterase Negative /uL (Negative) Urine RBC 2 /hpf (0 - 4) Urine Microscopic WBC 8 /HPF (0-5) H Urine Squamous Epithelial Cells Few /hpf (<5) Urine Bacteria None seen /hpf (None Seen) Urine Mucus Few (None Seen) Urine Glucose Normal mg/dL (Normal) Microbiology Microbiology Date/Time Source Procedure Growth Status 08/22/24 21:26 Urine - [place] Urine Culture - Preliminary Resulted 08/07/24 06:30 Stool Clostridium difficile Toxin Assay - Final Complete Labs and/or images reviewed: Labs reviewed by me, Image(s) reviewed by me Assessment/Plan Assessment/Plan Impression: -adenocarcinoma, status post right hemicolectomy -probable metastatic carcinoma -abdominal abscess to surgical site -normocytic anemia -complicated cystitis with ESBL Plan: Events: No events overnight. Discharge once wound VAC has been improved. Discontinue Tejada catheter prior to discharge. -restart antibiotic therapy with Levaquin and Flagyl -continue advancing diet -pain management -PUD prophylaxis -out of bed as tolerated, increase ambulation -discussed case with Oncology. Patient will follow up with Dr. Marie Bell as outpatient Total time spent with patient discussing and formulating plan of care: 35 minutes. This medical document was created using an electronic medical record system with [employer] system. Although this document has been carefully reviewed, there may still be some phonetic and typographical errors. These areas are purely typographical due to imperfections of the software programs, and do not reflect any compromise in the patient's medical care. Plan discussed with: Patient, Other (RN) My Orders Orders - ANA GONZALEZ NP Procedure Category Date Status Time * Manager Android CONS 08/25/24 Transmitted Consult 11:14 Date of Service: Aug 26, 2024 Billing Provider: ANA GONZALEZ NP Common Visit Codes: [id number] INP/OBS CARE(HIGH) ANA GONZALEZ NP Aug 26, 2024 09:52
[2024-08-26 13:00] VITALS: BP 98/66; PULSE 105; RESP 16; TEMP 97.5; O2SAT 97
[2024-08-26 17:00] VITALS: BP 111/70; PULSE 95; RESP 16; TEMP 97.8; O2SAT 96
== END 2024-08-26 19:51 | disposition home health service (06) | DRG 231 ==
LOC: ER 09:51 → OVERFLOW 18:05 → CENTRAL 18:09 → TELE-CENTR 08-12 12:58
PROVIDERS: ADMIT Nurse Practitioner Acute Care; ATTEND Nurse Practitioner Acute Care
PROC: 0DBE8ZX Excision of Large Intestine, Via Natural or Artificial Opening Endoscopic, Diagnostic (ICD-10-PCS; 2024-08-08)
PROC: 0DB68ZX Excision of Stomach, Via Natural or Artificial Opening Endoscopic, Diagnostic (ICD-10-PCS; principal; 2024-08-08 10:35)
PROC: 0DB78ZX Excision of Stomach, Pylorus, Via Natural or Artificial Opening Endoscopic, Diagnostic (ICD-10-PCS; 2024-08-08 10:35)
PROC: 30233N1 Transfusion of Nonautologous Red Blood Cells into Peripheral Vein, Percutaneous Approach (ICD-10-PCS; 2024-08-12)
PROC: 0DTF0ZZ Resection of Right Large Intestine, Open Approach (ICD-10-PCS; 2024-08-12)
PROC: 0DJD4ZZ Inspection of Lower Intestinal Tract, Percutaneous Endoscopic Approach (ICD-10-PCS; 2024-08-12)
PROC: 05HF33Z Insertion of Infusion Device into Left Cephalic Vein, Percutaneous Approach (ICD-10-PCS; 2024-08-14)
PROC: B54NZZA Ultrasonography of Left Upper Extremity Veins, Guidance (ICD-10-PCS; 2024-08-14)
DX: C18.3 Malignant neoplasm of hepatic flexure (principal); K29.71 Gastritis, unspecified, with bleeding; E83.39 Other disorders of phosphorus metabolism; E88.09 Other disorders of plasma-protein metabolism, not elsewhere classified; D49.0 Neoplasm of unspecified behavior of digestive system; D75.839 Thrombocytosis, unspecified; L02.211 Cutaneous abscess of abdominal wall; D50.0 Iron deficiency anemia secondary to blood loss (chronic); N30.00 Acute cystitis without hematuria; Z53.31 Laparoscopic surgical procedure converted to open procedure; K44.9 Diaphragmatic hernia without obstruction or gangrene; E83.42 Hypomagnesemia; E87.6 Hypokalemia; K64.8 Other hemorrhoids; Z83.3 Family history of diabetes mellitus; Z90.710 Acquired absence of both cervix and uterus; Z79.899 Other long term (current) drug therapy
CPT/HCPCS: 36415; 36430; 43239; 45380; 70450; 71045; 71260; 74177; 76705; 80048; 80053; 81001; 82270; 82306; 82378; 82962; 83735; 83880; 83970; 84100; 84478; 84484; 84702; 85025; 85610; 85730; 86850; 86900; 86901; 86920; 87086; 87088; 87186; 87493; 93005; 96361; 96365; 96375; 97110; 97116; 97163; 97530; G0378; J1335; J1815; J1956; J2250; J2405; J2470; J3490; J7060; P9047

== ENCOUNTER 2024-08-28 15:08 | Emergency (ER) | payer MEDICAID ==
[~2024-08-28] VITALS: Ht 167.6 cm; Wt 63.0 kg
[~2024-08-28 15:08] MED LIST changes: +BACL10TA PO; -BACL20TA PO; +FERR1TAB8 PO; +LEVO500T91 PO
[2024-08-28 16:18] VITALS: BP 99/61; PULSE 97; RESP 16; TEMP 98.4; O2SAT 98
--- NOTE | 2024-08-28 16:54 | ED.PDOC ---
History of Present Illness HPI Comments A 49 YEAR OLD FEMALE PRESENTS TO THE ED WITH COMPLAINT OF WOUND VAC DRESSING REPLACEMENT, TODAY. PATIENT REPORTS ON HOME NURSE SENT PATIENT TO ED FOR WOUND VAC SPONGE DRESSING REPLACEMENT AFTER TELLING HER ON BEING UNABLE TO FOR SCHEDULED REPLACEMENT. SHE STATES ON HAVING WOUND VAC PLACED ON 08/24/24 DURING DV H ADMISSION FOR UTI STATUS POST RIGHT HEMICOLECTOMY FOR COLON CANCER. PATIENT COMMENTS ON BEING DISCHARGED ON 08/26/24 AND BEING TOLD ON NEEDING SPONGE DRESSING CHANGED EVERY 3X DAYS. PATIENT DENIES FEVER, CHILLS, SHORTNESS OF BREATH, CHEST PAIN, ABDOMINAL PAIN, NAUSEA, VOMITING, HEADACHE, OR OTHER COMPLAINTS. NO OTHER SYMPTOMS OR MODIFYING FACTORS AT THIS TIME. Chief Complaint: Wound Check Time Seen by MD: 16:30 Primary Care Provider: MYRA Reviewed Notes: Nurses Notes, Medications, Allergies Allergies: Coded Allergies: NO KNOWN ALLERGIES (Unverified , 03/27/13) Home Meds Active Scripts Levofloxacin Hemihydrate (LEVAQUIN 500 MG) 500 Mg Tab, 1 TAB PO DAILY, #7 TAB Prov:ANA GONZALEZ CLINICAL DERMATOLOGIST 08/23/24 Reported Medications Baclofen (Baclofen) 10 Mg Tab, 10 MG PO DAILY for 30 Days, MG 08/07/24 Ferrous Sulfate (Gnp Iron) 325 Mg Tab, 1 TAB PO 08/07/24 Cetirizine HCl (Cetirizine Hydrochloride) 10 Mg Tab, 1 TAB PO DAILY 06/19/24 Pantoprazole Sodium Sesquihydr (Pantoprazole Sodium Dr) 40 Mg Tab, 40 MG PO DAILY 06/19/24 Information Source: Patient Mode of Arrival: Wheelchair Severity: Mild Timing: Days Duration: Since onset, Days Prehospital treatment: None Medication Refill: For: Other (WOUND VAC DRESSING REPLACEMENT) Past Medical History PAST MEDICAL HISTORY: Anemia, Cancer (COLON CANCER WITH LARGE GEPAIC FLEXURE MASS S/P RIGHT HEMICOLECTOMY), UTI'S Surgical History: Surgical History (Other): RIGHT HEMICOLECTOMY RUBBER TUBING SPLICER History: No Pertinent RUBBER TUBING SPLICER History Family History Family History: Family hx of DM, Family hx of heart heri Social History Smoker: Non-Smoker Alcohol: Denies ETOH Use Drugs: Denies Drug Use Lives In: Home Constitutional: denies: chills, diaphoresis, fatigue, fever, malaise, sweats, weakness, others EENTM: denies: blurred vision, double vision, ear bleeding, ear discharge, ear drainage, ear pain, ear ringing, eye pain, eye redness, hearing loss, mouth pain, mouth swelling, nasal discharge, nose bleeding, nose congestion, nose pain, photophobia, tearing, throat pain, throat swelling, voice changes, others Respiratory: denies: cough, hemoptysis, orthopnea, SOB at rest, shortness of breath, SOB with excertion, stridor, wheezing, others Cardiovascular: denies: chest pain, dizzy spells, diaphoresis, Dyspnea on exertion, edema, irregular heart beat, left arm pain, lightheadedness, palpitations, PND, syncope, others Gastrointestinal: denies: abdomen distended, abdominal pain, blood streaked bowels, constipated, diarrhea, dysphagia, difficulty swallowing, hematemesis, melena, nausea, poor appetite, poor fluid intake, rectal bleeding, rectal pain, vomiting, others Genitourinary: denies: abnormal vagina bleeding, burning, dyspareunia, dysuria, flank pain, frequency, hematuria, incontinence, pain, , vagina discharge, urgency, others Neurological: denies: dizziness, fainting, headache, left sided numbness, left sided weakness, numbness, paresthesia, pre-existing deficit, right sided nu mbness, right sided weakness, seizure, speech problems, tingling, tremors, weakness, others Musculoskeletal: denies: back pain, gout, joint pain, joint swelling, muscle pain, muscle stiffness, neck pain, others Integumetry: reports: wounds (WOUND VAC); denies: bruises, change in color, change in hair/nails, dryness, laceration, lesions, lumps, rash, others Allergic/Immunocompromised: denies: Difficulty Healing, Frequent Infections, Hives, Itching, others Hematologic/Lymphatic: denies: anemia, blood clots, easy bleeding, easy bruising, swollen glands, others Endocrine: denies: excessive hunger, excessive sweating, excessive thirst, excessive urination, flushing, intolerance to cold, intolerance to heat, unexplained weight gain, unexplained weight loss, others Psychiatric: denies: anxiety, bipolar disorder, depression, hopeless, panic disorder, schizophrenia, sleepless, suicidal, others All Other Systems: Reviewed and Negative (UNLESS OTHERWISE STATED IN HPI OR ABO VE ) Physical Exam General Appearance: No Apparent Distress, Normal HEENT: Normal ENT Inspection, PERRL/EOMI, Pharynx Normal, TMs Normal Neck: Full Range of Motion, Non-Tender, Normal, Normal Inspection Respiratory: Chest Non-Tender, Lungs Clear, No Accessory Muscle Use, No Respiratory Distress, Normal Breath Sounds Cardiovascular: No Edema, No JVD, No Murmur, No Gallop, Normal Peripheral Pulses, Regular Rate/Rhythm Breast Exam: Deferred Gastrointestinal: No Organomegaly, Non Tender, No Pulsatile Mass, Normal Bowel Sounds, Soft Genitalia: Deferred Pelvic: Deferred Rectal: Deferred Extremities: No calf tenderness, Normal capillary refill, Normal inspection, Normal range of motion, Non-tender, No pedal edema Musculoskeletal : Apperance: Normal Neurologic: Alert, inside channel account manager II-XII nml as Tested, No Motor Deficits, Normal Affect, Normal Mood, No Sensory Deficits Cerebellar Function: Normal Reflexes: Normal Skin: Dry, Normal Color, Warm, Wounds (WOUND VAC INTACT, NO SKIN REDNESS AND SWELLING, NO DRAINage. ) Peripheral Pulses: 2+ carotid (R), 2+ carotid (L) Lymphatic: No Adenopathy Was a procedure done? Was a procedure done?: No Differential Dx Considerations may include: WOUND VACUUM DRESSING CHANGE X-Ray, Labs, Meds, VS Vital Signs Date Time Temp Pulse Resp B/P (MAP) Pulse Ox O2 Delivery O2 Flow Rate FiO2 08/28/24 16:18 97 16 98 Room Air 08/28/24 16:18 98.4 97 16 99/61 (74) 98 98.4 08/28/24 15:42 98.4 97 16 99/61 (74) 98 98.4 X-Ray, Labs, Meds, VS Comment EXTERNAL MEDICAL RECORDS REVIEWED: AUGUST 06, 2024 ENCOUNTER FOR UTI INDEPENDENT HISTORIANS: [NONE] SOCIAL DETERMINANTS OF HEALTH: [NONE] LABS ORDERED: NONE REVIEWED AND INTERPRETED RESULTS: NONE IMAGING ORDERED: NONE TREATMENTS ORDERED: NONE PROCEDURES PERFORMED: WOUND DRESSING REPLACEMENT BY A WOUND CARE NURSEMARK. CRITICAL CARE TIME: NONE I HAVE DISCUSSED THE PATIENT WITH THE ATTENDING PHYSICIAN DR. HOLLOWAY AND HE AGREES WITH THE PATIENT'S PLAN OF CARE AND DISPOSITION. BASED ON HISTORY OF PRESENT ILLNESS, AND PHYSICAL EXAM, PATIENT WILL BE DISCHARGED HOME. DISCUSSED PLAN FOR DISCHARGE. SHARED DECISION MAKING: DISCUSSED WITH PATIENT THAT THEIR WORKUP WAS NORMAL. PATIENT INSTRUCTED TO FOLLOW UP WITH PRIMARY CARE PROVIDER IN 1-2 DAYS FOR RE- EVALUATION OF SYMPTOMS. PATIENT VERBALIZES UNDERSTANDING TO RETURN TO ED FOR NEW OR WORSENING SYMPTOMS OR IF FOLLOW UP WITH PCP CANNOT BE OBTAINED. PATIENT FEELS COMFORTABLE GOING HOME AT THIS TIME. ALL QUESTIONS ADDRESSED AT TIME OF DISCHARGE. Time of 1ST Reevaluation: 17:01 (WOUND CARE NURSE CHANGE SPONGE DRESSING) Reevaluation 1ST: Improved Patient Education/Counseling: Diagnosis, Treatment, Need For Follow Up Family Education/Counseling: Diagnosis, Treatment, No Family Present Medical Screening: No EMC Exist At This Time Departure 1 Departure Time of Disposition: 17:01 Impression: Primary Impression: Encounter for surgical wound dressing change Disposition: 01 HOME / SELF CARE / HOMELESS Condition: Stable Additional Instructions: FOLLOW-UP WITH PCP IN 1 TO 2 DAYS. TAKE MEDICATIONS PRESCRIBED. RETURN TO ED FOR ANY NEW OR WORSENING SYMPTOMS. Discharged With: Self, Relative Critical Care Note Critical Care Time?: No Stability Stability form required: No Heart Score Heart Score: Heart Score Response (Comments) Value History N/A 0 EKG N/A 0 Age N/A 0 Risk Factors N/A 0 Troponin N/A 0 Total 0 I personally scribed for JOHANNA HURTADO ([email or web address]) on 08/28/24 at 16:54. Electronically submitted by Kj Negro ([email or web address]). JOHANNA HURTADO Aug 28, 2024 16:54
== END 2024-08-28 16:55 | disposition home or self-care (01) ==
LOC: ER 15:08
DX: Z48.01 Encounter for change or removal of surgical wound dressing (principal); Z79.899 Other long term (current) drug therapy; Z90.49 Acquired absence of other specified parts of digestive tract